=== PATIENT | female | born 1950 | race Caucasian/White ===

== ENCOUNTER 2024-02-05 10:18 | Inpatient (IN) ==
[2024-02-05 12:15] LABS: Basophils # (auto) 0.08 K/uL (0.00-0.20); Basophils % (auto) 0.6 %; Eosinophils # (auto) 0.08 K/uL (0.00-0.50); Eosinophils % (auto) 0.6 %; Hematocrit (blood only) 41.7 % (37.0-47.0); Hemoglobin 14.2 g/dl (12.0-16.0); Immature Granulocytes % (auto) 0.7 %; Lymphocytes # (auto) 3.04 K/uL (1.20-3.40); Lymphocytes % (auto) 21.4 %; Mean Corpuscular Hgb Conc 34.1 g/dL (32.0-36.0); Mean Platelet Volume 9.4 fL (9.4-12.4); Monocytes # (auto) 0.68 K/uL (0.11-0.59); Monocytes % (auto) 4.8 %; Neutrophils # (auto) 10.22 K/uL (1.40-6.50); Neutrophils % (auto) 71.9 %; Platelet Count 263 K/uL (130-400); RDW Coefficient of Variation 13.2 % (11.5-14.5); RDW Standard Deviation 41.5 fL (36.4-46.3); Red Blood Count 4.74 M/uL (4.20-5.40)
[2024-02-05 12:20] LABS: iSTAT Creatinine 0.9 mg/dl (0.6-1.3); iSTAT Hemoglobin 14.3 g/dl (12.0-16.0); iSTAT Ionized Calcium 1.2 mmol/l (1.12-1.32); iSTAT Potassium 3.7 mmol/L (3.3-5.0)
[2024-02-05 12:32] LABS: Anion Gap 12 (3-11); BUN Creatinine Ratio 36.2 (10-20); Blood Urea Nitrogen 34 mg/dl (6-23); Carbon Dioxide 24 mmol/L (21-32); Chloride 103 mmol/L (98-107); Creatinine Clr Calc Pharmacy 49.9 ml/min; Glucose 67 mg/dl (70-99(Fasting)); Potassium 3.7 mmol/L (3.5-5.1); Sodium 139 mmol/L (136-145)
[2024-02-05] MEDS: LORazepam 2 MG/1 ML VIAL IV STA (13:56)
[2024-02-05] MEDS: GADOBUTROL 65ML VIAL IV ONE (14:24)
--- NOTE | 2024-02-05 14:41 | Emergency Department Note ---
Impression & Plan Third nerve palsy ED Provider Note NAME: LAURA FLORES AGE: 73 SEX: F : 1950 ARRIVES VIA: Walk-In INFORMANT: Patient, ED PROVIDER(S): Jonathan Smith MD CHIEF COMPLAINT: Right eye abnormality HPI: This is a 73-year-old female presents for eye abnormality. Patient states over the past 5 days she has had blurred vision. She notes that her right eyelid is drooping and she is unable to open this. In addition she notes that her right eyeball itself does not move significantly well. It is stuck going outwards and down. She notes is never happened before. She does have double vision as result of this. Otherwise she has no recent fever, chills, nausea or vomiting. She does have COVID-19 history, on 01/17. She has no symptoms from this. Otherwise, lower extremity upper extremity motor function or sensory deficits. No other facial issue that she is able to elucidate. ROS: See above HPI for pertinent positives & negatives. A total of 10 systems reviewed and were otherwise negative. PAST MEDICAL HISTORY: See Below PAST SURGICAL HISTORY: See Below FAMILY HISTORY: See Below SOCIAL HISTORY: See Below HOME MEDICATIONS: See Below ALLERGIES: See Below VITALS: See Below PHYSICAL EXAMINATION: General: resting comfortably in no acute distress Head: Normocephalic and atraumatic Eyes: Normal inspection, extraocular muscles intact Ear, nose, throat: Normal external exam Neck: Normal range of motion Respiratory: lungs clear to auscultation bilaterally Cardiovascular: Regular rate/rhythm, no murmur GI: soft, nontender, no guarding or rebound Extremities: nontender, moves all extremities Neuro: The patient awake and alert, appropriately conversive, no focal deficits, symmetric faces, 3rd nerve palsy, other cranial nerves intact Skin: Warm, dry, and intact MEDICAL DECISION MAKING: This is a 73-year-old female presenting for eye abnormality. Patient has been obvious 3rd nerve palsy at this time her right eye is due to the laterally and down. Pupil itself is spared, is reactive to light bilaterally. -Discussed care with Dr. Mattson. Discussed the clinical syndrome at this time. He states recommend MRI of the head with and without contrast. Did ask about CT imaging prior. He recommends MRI at this time without CTs. -Slight leukocytosis is noted at 14.20. Otherwise electrolytes generally within normal limits. Initially low glucose, given food/drink with improvement to the 70s. -MRI reveals no acute intracranial process. She still has significant 3rd nerve palsy. -At this time there is no clear cause, including stroke. Will admit for further workup and etiology Differential diagnosis: 3rd nerve palsy, stroke, infection, MS Diagnostics interpreted by me: ECG: None Cardiac Monitoring: An order was placed for continuous cardiac monitoring. The monitor shows a rate of 76 with sinus rhythm. Past Med/Surg History Problem List (Updated 02/05/24 @ 16:45 by Jonathan Smith MD) Third nerve palsy (Acute) Closed fracture of left distal radius Encounter for pre-operative examination Gastritis Tubular adenoma Nausea Colon cancer screening RUQ abdominal pain Medical History Anxiety Diabetes mellitus, type 2 Environmental allergies Gastric ulcer hx Heart murmur MILD; dr. medel, [facility] History of colonic polyps History of sciatica Hx of bronchitis Hyperlipidemia Hypertension Unique anesthetic considerations on preoperative anesthesia assessment pt reports high anxiety/gets nervous and has white coat syndrome. White coat syndrome without diagnosis of hypertension Surgical History H/O total hysterectomy History of cataract surgery History of colonoscopy History of esophagogastroduodenoscopy (EGD) History of repair of rotator cuff LEFT History of tonsillectomy History of tooth extraction Nausea and vomiting after administration of anesthetic agent Family History Mother Family history of diabetes mellitus Heart disease Grandmother (Maternal) Family history of diabetes mellitus Aunt Family history of diabetes mellitus Father Heart disease Other No family history of adverse response to anesthesia Social History Smoking Status: Current every day smoker Second Hand Exposure: Yes (hx-none for 2 years from ); Do You Dip or Chew Tobacco: No; Hx Alcohol Use: Yes Hx Substance Use: No Preferred Language: Sinhala Communication Ability: Effective Engagement Mgr Required: No Beliefs That Will Affect Care: Roman Catholic Roman Catholic Beliefs: Confucianist Current Living Situation: Spouse Feels Safe at Home: Yes Assistive Devices: Glasses Allergies Allergies Allergy/AdvReac Type Severity Reaction Status Date / Time cat dander Allergy Unknown Hives Verified 02/05/24 12:46 pioglitazone [From Actos] Allergy Unknown Unknown Unverified 02/05/24 12:46 pollen extracts Allergy Unknown ITCHY Verified 02/05/24 12:46 EYES, SNEEZING, CONGESTION Home Meds Home Medications Medication Instructions Recorded Confirmed atorvastatin 40 mg tablet 40 mg PO QAM 11/22/18 02/05/24 multivitamin 1 tab PO QAM 01/21/21 02/05/24 buspirone 5 mg tablet 5 mg PO BID 11/30/22 02/05/24 metformin 500 mg tablet,extended 1,000 mg PO BID 11/30/22 02/05/24 release 24 hr amlodipine 2.5 mg tablet 2.5 mg PO BID 02/05/24 02/05/24 aspirin 81 mg chewable tablet 81 mg PO QAM 02/05/24 02/05/24 lisinopril 40 mg tablet 40 mg PO QAM 02/05/24 02/05/24 metoprolol succinate 50 mg 50 mg PO QAM 02/05/24 02/05/24 tablet,extended release 24 hr tirzepatide 7.5 mg/0.5 mL 7.5 mg subcut WK 02/05/24 02/05/24 subcutaneous pen injector (Elida) Results & Data (ED) Vital Signs Vital Signs - 24 hr 02/05/24 10:19 02/05/24 10:38 02/05/24 11:21 Temperature 36.5 C 37.1 C Temperature Source Temporal Artery Scan Oral Pulse Rate 93 H Pulse Rate [Apical] 97 H 90 Respiratory Rate 18 18 20 Respiratory Effort / Characteristics Non-Labored Spontaneous Respiratory Depth Normal Respiratory Pattern Regular Blood Pressure 184/109 H Blood Pressure [Right Arm] 198/107 H 182/88 H Blood Pressure Mean 134 Blood Pressure Mean [Right Arm] 137 119 Blood Pressure Position [Right Arm] Semi-fowlers Pulse Oximetry 97 97 95 Oxygen Delivery Method Room Air Room Air Sepsis Recent Fever Within 48 Hours No Sepsis New/Unexplained Change in Mental Status N/A Sepsis Action Taken by Nursing No Action Required 02/05/24 13:00 02/05/24 13:57 02/05/24 14:41 Temperature Temperature Source Pulse Rate Pulse Rate [Apical] 87 85 97 H Respiratory Rate 16 18 16 Respiratory Effort / Characteristics Non-Labored Spontaneous Non-Labored Spontaneous Non-Labored Spontaneous Respiratory Depth Normal Normal Normal Respiratory Pattern Regular Regular Regular Blood Pressure Blood Pressure [Right Arm] 181/94 H 169/91 H 181/94 H Blood Pressure Mean Blood Pressure Mean [Right Arm] 123 117 123 Blood Pressure Position [Right Arm] Semi-fowlers Semi-fowlers Semi-fowlers Pulse Oximetry 95 94 96 Oxygen Delivery Method Room Air Room Air Room Air Sepsis Recent Fever Within 48 Hours Sepsis New/Unexplained Change in Mental Status Sepsis Action Taken by Nursing 02/05/24 16:22 Temperature Temperature Source Pulse Rate Pulse Rate [Apical] 76 Respiratory Rate 16 Respiratory Effort / Characteristics Non-Labored Spontaneous Respiratory Depth Normal Respiratory Pattern Regular Blood Pressure Blood Pressure [Right Arm] 163/85 H Blood Pressure Mean Blood Pressure Mean [Right Arm] 111 Blood Pressure Position [Right Arm] Semi-fowlers Pulse Oximetry 98 Oxygen Delivery Method Room Air Sepsis Recent Fever Within 48 Hours Sepsis New/Unexplained Change in Mental Status Sepsis Action Taken by Nursing Laboratory Data 02/05/24 12:00 02/05/24 12:00 Lab Results 02/05/24 02/05/24 02/05/24 Range/Units 12:00 12:05 13:02 WBC 14.20 H (4.8-10.8) K/ul RBC 4.74 (4.20-5.40) M/uL Hgb 14.2 (12.0-16.0) g/dl POC Hgb 14.3 (12.0-16.0) g/dl Hct 41.7 (37.0-47.0) % POC Hct 42 (37-47) % MCV 88.0 (80.0-100.0) fL MCH 30.0 (25.0-34.0) pg MCHC 34.1 (32.0-36.0) g/dL RDW Std Deviation 41.5 (36.4-46.3) fL RDW Coeff of Karla 13.2 (11.5-14.5) % Plt Count 263 (130-400) K/uL MPV 9.4 (9.4-12.4) fL Immature Gran % (Auto) 0.7 % Neut % (Auto) 71.9 % Lymph % (Auto) 21.4 % [place] % (Auto) 4.8 % Eos % (Auto) 0.6 % Baso % (Auto) 0.6 % Neut # (Auto) 10.22 H (1.40-6.50) K/uL Lymph # (Auto) 3.04 (1.20-3.40) K/uL [place] # (Auto) 0.68 H (0.11-0.59) K/uL Eos # (Auto) 0.08 (0.00-0.50) K/uL Baso # (Auto) 0.08 (0.00-0.20) K/uL Immature Gran # (Auto) 0.10 (0.01-0.20) K/uL POC Sodium 140 (135-144) mmol/L Sodium 139 (136-145) mmol/L POC Potassium 3.7 (3.3-5.0) mmol/L Potassium 3.7 (3.5-5.1) mmol/L POC Chloride 105 (101-112) mmol/L Chloride 103 (98-107) mmol/L Carbon Dioxide 24 (21-32) mmol/L POC Total CO2 22 L (24-31) mmol/L Anion Gap 12 H (3-11) POC Anion Gap 18.0 (16-25) mmol/L POC BUN 34 H (7-18) mg/dl BUN 34 H (6-23) mg/dl Creatinine 0.94 (0.6-1.2) mg/dl POC Creatinine 0.9 (0.6-1.3) mg/dl Est Cr Clr Drug Dosing 49.9 ml/min eGFR 64.87 BUN/Creatinine Ratio 36.2 H (10-20) Glucose 67 L (70-99(Fasting)) mg/dl POC Glucose 79 (70-99) mg/dl POC Glucose (other) 66 L* (70-99) mg/dl Calcium 10.0 (8.6-10.3) mg/dl POC Ioniz Calcium Lexa 1.20 (1.12-1.32) mmol/l Administered Medications Discontinued Medications Gadobutrol (Gadobutrol 65ml Vial) 7.5 ml IV ONCE ONE Stop: 02/05/24 14:24 Last Admin: 02/05/24 14:24 Dose: 7.5 ml Documented By: ENOC Lorazepam (Lorazepam 2 Mg/1 Ml Vial) 0.5 mg IV NOW STA Stop: 02/05/24 13:50 Last Admin: 02/05/24 13:56 Dose: 0.5 mg Documented By: CHARITY Imaging Data Radiologist's Impression: Brain MRI 02/05/24 12:09 MRI OF THE BRAIN WITHOUT AND WITH IV CONTRAST CLINICAL HISTORY: Right 3rd nerve palsy. Acute onset right eyelid drooping. COMPARISON STUDY: No previous studies for comparison. TECHNIQUE: Utilizing a 1.5 Viry magnet and dedicated coil, multiplanar, multiecho imaging of the brain was performed pre and postcontrast administration. IV administration of 7.5 mL of Gadavist contrast was uneventful. FINDINGS: There are no foci of restricted diffusion to suggest acute infarct. No acute intracranial hemorrhage, midline shift or mass effect is present. Ventricular system is unremarkable. Basal cisterns are patent. Flow-voids for the major intracranial vessels are present. There is mild atrophy. Mild white matter T2 hyperintense foci suggest small vessel disease. Calvarial signal is normal. No orbital abnormality is identified on nondedicated exam. There is no mastoid fluid. There is no significant sinus opacification. IMPRESSION: 1. No acute intracranial findings. 2. No intracranial mass or pathologic enhancement. ACT 112: Negative or not required by law. Electronically signed by: Steven Dwyer M.D. 02/05/2024 2:48 PM Discharge Plan Visit Data Chief Complaint: Eye Problems Stated Complaint: RT EYE/SWOLLEN SHUT/PAINFUL ED Provider: Jonathan Smith Discharge Problem: Third nerve palsy Forms Stand Alone Forms: [facility] Prescriptions Prescriptions: No Action atorvastatin 40 mg Tablet 40 mg PO QAM buspirone 5 mg Tablet 5 mg PO BID metformin 500 mg Tablet Extended Release 24 Hr 1,000 mg PO BID multivitamin Tablet 1 tab PO QAM metoprolol succinate 50 mg tablet extended release 24 hr 50 mg PO QAM amlodipine 2.5 mg tablet 2.5 mg PO BID aspirin 81 mg Tablet,Chewable 81 mg PO QAM lisinopril 40 mg tablet 40 mg PO QAM Mounjaro 7.5 mg/0.5 mL pen injector 7.5 mg subcut WK Rx Instructions: Monday Referrals Referrals: Arti Gutierrez MD [Primary Care Provider] -
--- NOTE | 2024-02-05 14:49 | Magnetic Resonance Report ---
MRI OF THE BRAIN WITHOUT AND WITH IV CONTRAST CLINICAL HISTORY: Right 3rd nerve palsy. Acute onset right eyelid drooping. COMPARISON STUDY: No previous studies for comparison. TECHNIQUE: Utilizing a 1.5 Viry magnet and dedicated coil, multiplanar, multiecho imaging of the br ain was performed pre and postcontrast administration. IV administration of 7.5 mL of Gadavist contr ast was uneventful. FINDINGS: There are no foci of restricted diffusion to suggest acute infarct. No acute intracranial h emorrhage, midline shift or mass effect is present. Ventricular system is unremarkable. Basal cistern s are patent. Flow-voids for the major intracranial vessels are present. There is mild atrophy. Mild white matter T2 hyperintense foci suggest small vessel disease. Calvarial signal is normal. No orbita l abnormality is identified on nondedicated exam. There is no mastoid fluid. There is no significant sinus opacification. IMPRESSION: 1. No acute intracranial findings. 2. No intracranial mass or pathologic enhancement. ACT 112: Negative or not required by law. Electronically signed by: Steven Dwyer M.D. 02/05/2024 2:48 PM
--- NOTE | 2024-02-05 17:52 | History & Physical Report ---
<Statement entered by Lane Martinez DO - 02/05/24 19:41> I have seen and examined the patient and have discussed the case with the provider above. I have reviewed the advanced practitioner's documentation, and I agree with, and take responsibility for that plan of care. Patient seen and examined well still in ED. Patient reports she does have this palsy since last . Temporally it is very closely related to her recent COVID infection which she describes as severe. She also describes cluster migraines that occurred right about the time she has noticed a 3rd nerve palsy. Physical exam: Extraocular motion is consistent with 3rd nerve palsy of the right eye Reviewed MRI report Check MRA of the brain Check ESR/CRP consider possible giant cell arteritis or vasculitis Suspect 3rd nerve palsy may be due to recent infection with COVID and/or possible migrainous 3rd nerve palsy Neurology consultation Plan of care as outlined below Date of Service February 05, 2024 Assessment & Plan (1) Third nerve palsy: (2) Diabetes mellitus, type 2: (3) Anxiety: (4) Hypertension: (5) Hyperlipidemia: Plan Assessment and plan: Right eye ptosis Suspected 3rd nerve palsy: Head MRI negative for any acute findings, recent viral illness likely the cause Check head MRA, eyepatch, consult neuro, await recommendations Hx DM2: Last A1c 5.9, check sugars twice daily, hold metformin Patient was hypoglycemic on arrival Hx HTN/HLD: Continue metoprolol/lisinopril/statin/aspirin/amlodipine Hx depression: Continue buspirone A total of 60 minutes was spent on chart review/reviewing diagnostic data/facilitating plan of care/discussion with consultants Full code DVT prophylaxis: Lovenox History of Present Illness Chief Complaint: Right eye proptosis/diplopia Primary Care Provider: Arti Gutierrez MD The patient is a 73-year-old female with a past medical history of HTN, HLD, depression, diabetes who presents to the ED on 02/05/2024 with complaints of right eye proptosis for the past week. Patient reports recently being diagnosed with COVID and having a lot of mucus production and respiratory symptoms. She denies shortness of breath or chest pain. She reports about a week ago developing right eye ptosis about a week ago and thought she had an eye infection. She reports diplopia when opening both of her eyes but when her right eye is closed reports that this resolved. Denies anything like this in the past. Denies any numbness/tingling. Denies any weakness. On exam, patient is able to identify how many fingers are being held up and her peripheral vision is intact but the patient is unable to follow my fingers with her right eye. Denies any blurry vision. She is neurologically grossly intact. No other neurodeficits noted on exam On arrival to the ER, labs are remarkable for WBC 14, anion gap 12, BUN 34, glucose 66, patient reports she only ate breakfast this morning Brain MRI was negative for anything acute The patient will be admitted for further workup of suspected 3rd nerve palsy Allergies Allergy/AdvReac Type Severity Reaction Status Date / Time cat dander Allergy Unknown Hives Verified 02/05/24 12:46 pioglitazone [From Actos] Allergy Unknown Unknown Unverified 02/05/24 12:46 pollen extracts Allergy Unknown ITCHY Verified 02/05/24 12:46 EYES, SNEEZING, CONGESTION Home Medications Medication Instructions Recorded Confirmed Type atorvastatin 40 mg tablet 40 mg PO QAM 11/22/18 02/05/24 History multivitamin 1 tab PO QAM 01/21/21 02/05/24 History buspirone 5 mg tablet 5 mg PO BID 11/30/22 02/05/24 History metformin 500 mg tablet,extended 1,000 mg PO BID 11/30/22 02/05/24 History release 24 hr amlodipine 2.5 mg tablet 2.5 mg PO BID 02/05/24 02/05/24 History aspirin 81 mg chewable tablet 81 mg PO QAM 02/05/24 02/05/24 History lisinopril 40 mg tablet 40 mg PO QAM 02/05/24 02/05/24 History metoprolol succinate 50 mg 50 mg PO QAM 02/05/24 02/05/24 History tablet,extended release 24 hr tirzepatide 7.5 mg/0.5 mL 7.5 mg subcut WK 02/05/24 02/05/24 History subcutaneous pen injector (Mounjaro) Past Med/Surg History Problem List (Updated 02/05/24 @ 16:45 by Jonathan Smith MD) Third nerve palsy (Acute) Closed fracture of left distal radius Encounter for pre-operative examination Gastritis Tubular adenoma Nausea Colon cancer screening RUQ abdominal pain Medical History Anxiety Diabetes mellitus, type 2 Environmental allergies Gastric ulcer hx Heart murmur MILD; dr. medel [place] History of colonic polyps History of sciatica Hx of bronchitis Hyperlipidemia Hypertension Unique anesthetic considerations on preoperative anesthesia assessment pt reports high anxiety/gets nervous and has white coat syndrome. White coat syndrome without diagnosis of hypertension Surgical History H/O total hysterectomy History of cataract surgery History of colonoscopy History of esophagogastroduodenoscopy (EGD) History of repair of rotator cuff LEFT History of tonsillectomy History of tooth extraction Nausea and vomiting after administration of anesthetic agent Family History Mother Family history of diabetes mellitus Heart disease Grandmother (Maternal) Family history of diabetes mellitus Aunt Family history of diabetes mellitus Father Heart disease Other No family history of adverse response to anesthesia Social History Smoking Status: Current every day smoker Second Hand Exposure: Yes (hx-none for 2 years from ); Do You Dip or Chew Tobacco: No; Hx Alcohol Use: Yes Hx Substance Use: No Preferred Language: Romansh Communication Ability: Effective Enrollment Management Manager Required: No Beliefs That Will Affect Care: Scientology Scientology Beliefs: Synagogue Current Living Situation: Spouse Feels Safe at Home: Yes Assistive Devices: Glasses Review of Systems Review of Systems: All systems reviewed & are unremarkable except as noted in HPI & below Physical Exam Constitutional: WD/WN, vitals as above Eyes: PERRL, conjunctivae normal, anicteric sclerae (Right eye ptosis, 3rd nerve palsy) ENMT: external ear and nose normal, oropharynx normal Neck: trachea midline, no thyromegaly Respiratory: normal respiratory effort, lungs clear to auscultation Cardiovascular: RRR, no murmur, no edema Gastrointestinal (Abdomen): normal bowel sounds, soft, nontender, no hepatosplenomegaly Musculoskeletal: no cyanosis or clubbing, extremities motor strength 5/5 Skin: no rashes, warm and dry Neurologic: PERRL, EOMI, accommodation nl, no face palsy, no dysarthria Psychiatric: A+Ox3, euthymic affect Lymphatic: no cervical or axillary lymphadenopathy Results & Data Results & Data Vital Signs (Past 12 Hours) Vital Signs Temp Pulse Pulse Resp BP BP Pulse Ox 02/05/24 16:22 76 16 163/85 H 98 02/05/24 14:41 97 H 16 181/94 H 96 02/05/24 13:57 85 18 169/91 H 94 02/05/24 13:00 87 16 181/94 H 95 02/05/24 11:21 37.1 C 90 20 182/88 H 95 02/05/24 10:38 97 H 18 198/107 H 97 02/05/24 10:19 36.5 C 93 H 18 184/109 H 97 O2 Del Method 02/05/24 16:22 Room Air 02/05/24 14:41 Room Air 02/05/24 13:57 Room Air 02/05/24 13:00 Room Air 02/05/24 11:21 Room Air 02/05/24 10:38 Room Air 02/05/24 10:19 Diagnostic Findings Laboratory Results WBC 14.20 K/ul (4.8-10.8) H 02/05/24 12:00 RBC 4.74 M/uL (4.20-5.40) 02/05/24 12:00 Hgb 14.2 g/dl (12.0-16.0) 02/05/24 12:00 POC Hgb 14.3 g/dl (12.0-16.0) 02/05/24 12:05 Hct 41.7 % (37.0-47.0) 02/05/24 12:00 POC Hct 42 % (37-47) 02/05/24 12:05 MCV 88.0 fL (80.0-100.0) 02/05/24 12:00 MCH 30.0 pg (25.0-34.0) 02/05/24 12:00 MCHC 34.1 g/dL (32.0-36.0) 02/05/24 12:00 RDW Std Deviation 41.5 fL (36.4-46.3) 02/05/24 12:00 RDW Coeff of Karla 13.2 % (11.5-14.5) 02/05/24 12:00 Plt Count 263 K/uL (130-400) 02/05/24 12:00 MPV 9.4 fL (9.4-12.4) 02/05/24 12:00 Immature Gran % (Auto) 0.7 % 02/05/24 12:00 Neut % (Auto) 71.9 % 02/05/24 12:00 Lymph % (Auto) 21.4 % 02/05/24 12:00 [place] % (Auto) 4.8 % 02/05/24 12:00 Eos % (Auto) 0.6 % 02/05/24 12:00 Baso % (Auto) 0.6 % 02/05/24 12:00 Neut # (Auto) 10.22 K/uL (1.40-6.50) H 02/05/24 12:00 Lymph # (Auto) 3.04 K/uL (1.20-3.40) 02/05/24 12:00 [place] # (Auto) 0.68 K/uL (0.11-0.59) H 02/05/24 12:00 Eos # (Auto) 0.08 K/uL (0.00-0.50) 02/05/24 12:00 Baso # (Auto) 0.08 K/uL (0.00-0.20) 02/05/24 12:00 Immature Gran # (Auto) 0.10 K/uL (0.01-0.20) 02/05/24 12:00 POC Sodium 140 mmol/L (135-144) 02/05/24 12:05 Sodium 139 mmol/L (136-145) 02/05/24 12:00 POC Potassium 3.7 mmol/L (3.3-5.0) 02/05/24 12:05 Potassium 3.7 mmol/L (3.5-5.1) 02/05/24 12:00 POC Chloride 105 mmol/L (101-112) 02/05/24 12:05 Chloride 103 mmol/L (98-107) 02/05/24 12:00 Carbon Dioxide 24 mmol/L (21-32) 02/05/24 12:00 POC Total CO2 22 mmol/L (24-31) L 02/05/24 12:05 Anion Gap 12 (3-11) H 02/05/24 12:00 POC Anion Gap 18.0 mmol/L (16-25) 02/05/24 12:05 POC BUN 34 mg/dl (7-18) H 02/05/24 12:05 BUN 34 mg/dl (6-23) H 02/05/24 12:00 Creatinine 0.94 mg/dl (0.6-1.2) 02/05/24 12:00 POC Creatinine 0.9 mg/dl (0.6-1.3) 02/05/24 12:05 Est Cr Clr Drug Dosing 49.9 ml/min 02/05/24 12:00 eGFR 64.87 02/05/24 12:00 BUN/Creatinine Ratio 36.2 (10-20) H 02/05/24 12:00 Glucose 67 mg/dl (70-99(Fasting)) L 02/05/24 12:00 POC Glucose 79 mg/dl (70-99) 02/05/24 13:02 POC Glucose (other) 66 mg/dl (70-99) L* 02/05/24 12:05 Calcium 10.0 mg/dl (8.6-10.3) 02/05/24 12:00 POC Ioniz Calcium Lexa 1.20 mmol/l (1.12-1.32) 02/05/24 12:05 Impressions Brain MRI 02/05/24 12:09 MRI OF THE BRAIN WITHOUT AND WITH IV CONTRAST CLINICAL HISTORY: Right 3rd nerve palsy. Acute onset right eyelid drooping. COMPARISON STUDY: No previous studies for comparison. TECHNIQUE: Utilizing a 1.5 Viry magnet and dedicated coil, multiplanar, multiecho imaging of the brain was performed pre and postcontrast admini stration. IV administration of 7.5 mL of Gadavist contrast was uneventful. FINDINGS: There are no foci of restricted diffusion to suggest acute infarct. No acute intracranial hemorrhage, midline shift or mass effect is present. Ventricular system is unremarkable. Basal cisterns are patent. Flow-voids for the major intracranial vessels are present. There is mild atrophy. Mild white matter T2 hyperintense foci suggest small vessel disease. Calvarial signal is normal. No orbital abnormality is identified on nondedicated exam. There is no mastoid fluid. There is no significant sinus opacification. IMPRESSION: 1. No acute intracranial findings. 2. No intracranial mass or pathologic enhancement. ACT 112: Negative or not required by law. Electronically signed by: Steven Dwyer M.D. 02/05/2024 2:48 PM
[2024-02-05 18:55] LABS: C Reactive Protein < 0.50 mg/dl (0-0.5)
--- OUTSIDE RECORDS SUMMARY | 2024-02-05 19:45 | External Medical Summary | Summary of Care ---
Author Name Unknown Organization [facility] Address [address] [place] [address] Phone [phone] Care Team Providers Care Scourer Name Role Phone Arti Gutierrez MD Primary Care Provider [phone] Reason for Visit * Reason Comments Dosage Adjustment In Person (Anticoag Cl inic) Diabetes Management Encounter Details Date Type Department Care Team (Late st Contact Info) Description 01/05/2024 1:40 PM EDT Office Visit Pharmacy, [facility] [place] [address] [facility] [place] [address] Pharmacist1, [facility] [address] [place] [address] Type 2 diabetes mellitus with hemoglobin A1c goal of less than 7.0% ([facility])* Allergies Active Allergy Reactions Criticality Noted Date Comments Pioglitazone Hydrochloride 9 Gi upset Semaglutide Diarrhea,Nausea/vomiting 11/04/2022 documented as of this encounter (statuses as of 01/05/2024) Medications Medication Sig Dispensed Refills Start Date End Date Status ASPIRIN 81 MG PO CHEWIndications:DM type 2, not at goal (HCC),HTN, goal below 140/90 One pill by mouth once a day with food 100 5 12/04/2008 Active OCUVITE-LUTEIN PO CAPS 1 tab by mouth daily Active M-VIT PO TABS 1 tab by mouth daily Active Fluticasone Propionate 50 MCG/ACT Nasal Suspension (Flonase) ADMINISTER 1 SPRAY INTO NOSTRIL DAILY. 48 mL 07/07/2020 Active Fish Oil 1200 MG Oral Capsule Take 1,200 mg by mouth in the morning. Active B Complex Vitamins Oral Capsule Take 1 Capsule by mouth in the morning. Active Fiber Select Gummies Oral Tablet Chewable Take 1 Tablet by mouth in the morning. 5 g =2 gummies/d. 1 Tablet 2022 Active ReliOn All-In-One DeviceIndications:U ncontrolled type 2 diabetes mellitus with hyperglycemia (HCC) Use as directed. 1 Each 09/27/2022 Active Biotin 5000 MCG Oral Capsule Take 1,000 Capsules by mouth once. Active amLODIPine Besylate 2.5 MG Oral Tablet (Norvasc)Indication s:HTN, goal below 140/80,Microalbumin uria due to type 2 diabetes mellitus (HCC),Nonrheumatic mitral valve regurgitation,Nonrh eumatic aortic valve stenosis Take 1 Tablet by mouth in the morning and 1 Tablet before bedtime. 180 Tablet 3 05/09/2023 Active metFORMIN HCl ER 500 MG Oral Tablet Extended Release 24 Hour (Glucophage XR)Indications:Type 2 diabetes mellitus with hemoglobin A1c goal of less than 7.0% (HCC) Take 2 Tablets by mouth 2 times a day with morning and evening meals. 360 Tablet 3 07/05/2023 Active Lisinopril 40 MG Oral TabletIndications:H TN, goal below 140/80,Type 2 diabetes mellitus with hemoglobin A1c goal of less than 7.0% (HCC),Microalbuminu lizet due to type 2 diabetes mellitus (HCC),Dehydration TAKE 1 TABLET BY MOUTH EVERY DAY IN THE MORNING 90 Tablet 1 08/28/2023 Active busPIRone HCl 5 MG Oral Tablet (Buspar)Indications :Situational stress TAKE 1 TABLET BY MOUTH IN THE MORNING AND BEFORE BEDTIME 180 Tablet 1 10/11/2023 Active glipiZIDE ER 5 MG Oral Tablet Extended Release 24 Hour (Glucotrol XL)Indications:Unco ntrolled type 2 diabetes mellitus with hyperglycemia (HCC) TAKE 1 TABLET BY MOUTH IN THE MORNING AND IN THE EVENING 180 Tablet 2 10/11/2023 Active Metoprolol Succinate ER 50 MG Oral Tablet Extended Release 24 Hour (toPROL XL)Indications:HTN, goal below 140/80,Non-rheumati c aortic sclerosis,Type 2 diabetes mellitus with hemoglobin A1c goal of less than 7.0% (HCC),Nonrheumatic mitral valve regurgitation,Nonrh eumatic aortic valve stenosis TAKE 1 TABLET BY MOUTH EVERY DAY IN THE MORNING 90 Tablet 1 11/13/2023 Active Atorvastatin Calcium 40 MG Oral Tablet (Lipitor)Indication s:Dyslipidemia, goal LDL below 100 TAKE 1 TABLET BY MOUTH EVERY DAY IN THE MORNING 90 Tablet 1 11/23/2023 Active Cetirizine HCl 10 MG Oral Tablet (ZyrTEC Allergy)Indications :Seasonal allergic rhinitis due to pollen Take 1 Tablet by mouth in the morning. 01/05/2024 Active Mounjaro 10 MG/0.5ML Subcutaneous Solution Auto-injector (Tirzepatide) Inject 10 mg under the skin once a week. 2 mL 11 01/05/2024 5 Active Mounjaro 7.5 MG/0.5ML Subcutaneous Solution Pen-injector (Tirzepatide)Indica tions:Type 2 diabetes mellitus with hemoglobin A1c goal of less than 7.0% ([facility]) Inject 7.5 mg under the skin once a week. 2 mL 11 09/19/2023 4 Discontinue d(Medicatio n/Dose Changed) documented as of this encounter (statuses as of 01/05/2024) Active Problems Problem Noted Date Diagnosed Date Nonrheumatic mitral valve regurgitation 01/05/20 Advance directive on file 01/05/2024 Overview: 12/27--Full code, DNR if terminal, wishes to donate organs and body for research. White coat syndrome with diagnosis of hypertensi on 01/05/2024 Elevated BUN 01/05/2024 CKD (chronic kidney disease) stage 2, GFR 60-89 ml/min 01/16/2023 Overview: Per CKD protocol Microalbuminuria due to type 2 diabetes mellitus 09/27/2022 Seasonal allergic rhinitis due to pollen 023 Non-rheumatic aortic sclerosis 2022 Situational stress 2022 HTN, goal below 130/80 05/11/2015 Overview: Per HTN Protocol #27. DYSLIPIDEMIA, GOAL LDL BELOW 100 02/12/2009 Overview: Per Lipid Taxonomy. Type 2 diabetes mellitus wit h hemoglobin A1c goal of less than 7.0% 12/18/2008 Overview: Modified per Diabetes protocol #14. ICD-10 update of inactive term documented as of this encounter (statuses as of 01/05/2024) Resolved Problems Problem Noted Date Diagnosed Date Resolved Date Age-related incipient cataract of both eyes 2022 07/04/2023 HTN, GOAL BELOW 140/80 10/24/201106/10 Overview: Per HTN Protocol #27. Asthma with severity to be determined 08/27/2009 03/28/2011 Overview: Per Asthma Taxonomy ICD-10 update of inactive term Asthma with severity to be determined 08/27/2009 03/28/2011 Overview: Per Asthma Taxonomy ICD-10 update of inactive term Asthma with severity to be determined 08/27/2009 12/13/2011 Overview: Per Asthma Taxonomy ICD-10 update of inactive term Severe obesity with body mas s index (BMI) of 35.0 to 39.9 with serious comorbidity 08/17/2009 Overview: Per Obesity Protocol, #19 ICD-10 update of inactive diagnosis HTN, goal below 130/80 04/01/200903/28 Overview: Per HTN Taxonomy. HTN, goal below 130/80 04/01/200903/28 Overview: Per HTN Taxonomy. HTN, GOAL BELOW 130/80 04/01/200910/26 Overview: Per HTN Taxonomy. Dyslipidemia, goal LDL below 100 02/12/2009 03/28/2011 Overview: Per Lipid Taxonomy. Type 2 diabetes mellitus wit h hemoglobin A1c goal of less than 7.0% 12/18/2008 03/28/2011 Overview: Modified per Diabetes protocol #14. ICD-10 update of inactive term Type 2 diabetes mellitus wit h hemoglobin A1c goal of less than 7.0% 12/18/2008 03/28/2011 Overview: Modified per Diabetes protocol #14. ICD-10 update of inactive term Status asthmaticus 04/07/2008 0 HTN, goal below 140/90 04/07/200804/01 Overview: Per HTN Taxonomy. Dyslipidemia, goal LDL below 160 04/07/2008 02/12/2009 Overview: Per Lipid Taxonomy. Status asthmaticus 0 Status asthmaticus 0 Dyslipidemia, goal LDL below 160 02/12/2009 Overview: Per Lipid Taxonomy. HTN, goal below 140/90 04/01 Overview: Per HTN Taxonomy. DM type 2, not at goal 12/18 Overview: Modified per Diabetes protocol #14. DM type 2, not at goal 12/18 Overview: Modified per Diabetes protocol #14. DM type 2, not at goal 12/18 Overview: Modified per Diabetes protocol #14. HTN, goal below 140/90 04/01 Overview: Per HTN Taxonomy. Intermittent asthma, well controlled 07/04/2013 documented as of this encounter (statuses as of 01/05/2024) Immunizations Name Administration Dates Next Due COVID-19 mRNA, LNP-s, No Pre serve, 2-Dose Series (Moderna) 12/28/2022,05/13/2020,04/15/2020 COVID-19, mRNA, LNP-s, PF, B ooster, 100mcg/0.5mg (Moderna) 06/10/2021,01/04/2021,06/04/2020 Covid-19, Mrna, Lnp-s, Pf, B ivalent, 50 Mcg, IM, 12 yrs and above (Moderna) 12/15/2021 Hepatitis B, 20+ yrs 07/04/2023,02/20/2023,01/18 Pneumococcal Conjugate Vacc, 13 Valent (Prevnar) 01/19/2016 Pneumococcal Polysaccharide PPV23 (Pneumovax) 12/01/2021,11/30/2017,03/20/2001 RSV Vac., Recomb, Adjuvant, PF,0.5 Ml (Arexvy) 01/08/2023 Season Influenza, Quad, PF, Adjuvanted, 65+ Yrs, IM (FLUAD) 11/15/2021,11/23/2020,11/28/2019 Seasonal Influenza Vac., MDV , IM, 0.5 mL (Fluzone) 11/17/2014,12/26/2013,11/19/2012,04/2011,11/26/2010,11/23/2009,12/05/19 09,12/02/2007 Seasonal Influenza Virus Vac cine, Unspecified Formulation 11/28/2019,11/05/2018 Seasonal Influenza, PF, 6 M & above, IM , (FluLaval or Fluzone) 11/30/2017,12/16/2016 Seasonal Influenza, Quadriva lent Hd (Fluzone Hd) 12/28/2022 Seasonal Influenza, Quadriva lent, No Preserve, IM 12/09/2015 12/08/2016 Seasonal Influenza, Trivalen t, Adjuvanted, 65+ YRS, PF, (Fluad) 10/31/2018 TD - Tetanus/Diptheria (ADULT) 04/13/2018 TDAP, Age 7 and older, IM (Adacel) 04/13/2018, Varicella Zoster Vaccine (Adult) 10/02/2012 Zoster Vaccine Recombinant (Shingrix) 07/15/2019 ,03/15/2019 documented as of this encounter Social History Tobacco Use Types Packs/Day Years Used Date Smoking Tobacco: Never Smokeless Tobacco: Never Alcohol Use Standard Drinks/Week Comments Yes 0 (1 standard drink = 0.6 oz pur e alcohol) occassionally PHQ-2 Answer Date Recorded PHQ Adult Total Score 0 2022 Hunger Vital Sign Answer Date Recorded Within the past 12 months, y ou worried that your food would run out before you got the money to buy more. Never true 09/24/19 23 Within the past 12 months, t he food you bought just didn't last and you didn't have money to get more. Never true 2022 Utilities Answer Date Recorded Do you have trouble paying y our heating, water, or electric bill? (Adult - for ages 18 years and over) Not on file 08/22/2023 Is your family able to pay t he heat, water, or electric bill? (Household - for ages 0-17 years) Not on file 08/22/2023 Does your family have access to good internet? (Household - for ages 0-17 years) Not on file 08/22/2023 Social Connections Answer Date Recorded How often do you feel lonely or isolated from those around you? (Adult - for ages 18 years and over) Not on file 08/22/2023 Sex and Gender Information Value Date Recorded Sex Assigned at Female 08/09/2018 11:51 AM EDT Gender Identity Female 08/09/2018 11:51 AM EDT Sexual Orientation Straight 08/09/2018 11 :51 AM EDT Job Start Date Occupation Industry Not on file Not on file Not on file documented as of this encounter Progress Notes * Isabel De Leon, [facility] - 01/05/2024 2:00 PM EDT Medication Therapy Disease Management Clinic - Diabetes Management Progress Note Yessenia Justice, identified by name and date of , is a 73 year old female being seen for diabetes management/education. Patient presents for return diabetic visit. DIABETES: Current diabetic medications: Metformin ER 500mg 2 tablet with breakfast and supper Glipizide XL 5mg twice daily Mounjaro 7.5mg weekly Medication Injection Site: Abdomen Lifestyle: Diet: improved Glucose Review/SMBG: Readings obtained from patient documented BG logbook Pre am Post am Post pm HS 119 121 83 117 103 131 125 102 118 136 112 124 144 133 111 111 75 113 123 95 116 116 76 124 120 95 112 133 118 134 143 133 142 91 116 82 75 108 102 83 105 103 101 80 120 112 105 74 126 100 122 75 139 96 106 126 102 123 125 96 121 134 56 117 94 90 107 132 128 133 105 99 127 129 119 132 143 131 133 92 93 122 103 99 96 111 72 116 83 90 122 105 99 109 102 114 95 89 124 126 106 115 139 126 112 123 73 113 119 96 116 90 123 129 117 118 134 82 124 99 80 123 110 99 115 124 90 125 132 123 113 140 88 114 129 112 142 131 124 75 110 88 132 88 97 Pre am Post am Post pm HS Average 116 75 120 98 Hi 134 75 144 133 Lo 80 74 75 56 Range 54 1 69 77 Hypoglycemia: Does your blood sugar go below 70 mg/dL? Yes, Oct lows: 62, 65, 66, 62 Hyperglycemia symptoms present: none Recent Labs Units 01/03/24 0855 10/03/23 0835 07/01/23 0936 HEMOGLOBIN A1C - [facility] % 6.0* 5.9* 6.3* Recent Labs Units 01/03/24 0855 07/01/23 0936 04/11/23 0839 ESTIMATED GLOMERULAR FILTRATION RATE - [facility] mL/min 60 60 63 CREATININE - [facility] mg/dL 1.0 1.0 1.0 HYPERTENSION: Patient on ACEi/ARB: yes BP Readings from Last 3 Encounters: 01/05/24 142/80 07/13/23 179/103 07/04/23 120/73 Blood pressure at goal: yes HYPERLIPIDEMIA: Recent Labs Units 01/03/24 0855 03/31/23 1026 12/28/22 0822 LDL CHOLESTEROL (CALCULATED) - [facility] mg/dL 76 -- 81 LDL CHOLESTEROL (DIRECT MEASURE) - [facility] mg/dL -- 77 -- Does patient have clinical ASCVD? No, is patient LDL less than 70mg/dL? Yes HEALTH MAINTENANCE REVIEW: Health Maintenance Due Topic Date Due Adult Wellness Visit Never done Diabetic Eye Exam 08/09/2023 Depression Screening 09/24/2023 Influenza Vaccine (FLU shot) (1) 11/05/2023 COVID-19 Vaccine ( season) 2023 ASSESSMENT & PLAN: ICD-10-CM 1. Type 2 diabetes mellitus with hemoglobin A1c goal of less than 7.0% (HCC) E11.9 BG Readings - Blood sugars controlled. Patient's A1c was 6% on 01/02 which is controlled for her goal <7%. Congratulated the patient on this. The patient is however, experiencing consistent lows. She was having lows in October and was to discontinue the glipizide but restarted it as she saw her sugars coming up. Counseled on how to correct a low glucose. Medications - Reviewed current regimen, patient is adherent to regimen. Patient does not have any issues with her medications and is tolerating them well. Assessed willingness to increase mounjaro to10 mg patient states that she had severe vomiting and diarrhea when trying to increase the last time. It looked like she was only on 7.5 mg for a month prior to increasing to the 10 mg so I said her body might not have been used to it and the jump may have been too soon. Patient is agreeable to trythe increased dose and will let us know if any side effects or intolerance. She will finish out the7.5 mg supply. Counseled to stop glipizide when she starts the 10 mg and to decrease to 1 tablet ofglipizide in the mean time as she is concerned that her blood sugars will increase if she stops theglipizide now. Diet, Exercise, Lifestyle - No significant lifestyle changes since last visit. Discussed with patient her diet, or which is a good variety and consistent with a diabetes and weight loss approach. Patient is agreeable to SMBG 3 time(s) daily. Patient aware to contact clinic if any hypoglycemia before next visit. MEDICATION CHANGES: yes, see below; [facility] ([facility]) Diabetic Medications: Metformin ER 500mg 2 tablet with breakfast and supper DEC: Glipizide XL 5mg daily INC: Mounjaro 10 mg weekly (finishing out the 7.5 mg supply) HEALTH MAINTENANCE INTERVENTIONS: Labs: Ordered & Scheduled: HgA1c (prior to next appt) Immunizations: Not reviewed Foot Exam: Up to Date Eye Exam: due Annual Wellness Visit: due FOLLOW UP: Return to clinic in 14 weeks 04/08/2024 I spent a total of 30-39 minutes (exact time 34 mins) on the date of service in preparation, delivery, and documentation of the care provided to Yessenia Justice excluding any time spent in the performance of separately billed services. Isabel De Leon RPh Clinical Pharmacist - [facility] Medication Therapy Management Clinic 01/05/2024, 2:00 PM documented in this encounter Plan of Treatment Upcoming Encounters Date Type Department Care Team (Late st Contact Info) Description 02/20/2024 9:15 AM EST Imaging Radiology [address], [address] [place] [address] 04/08/2024 10:30 AM EST Office Visit Pharmacy, [facility] [address] [facility] [place] [address] Pharmacist1, [facility] [address] [facility] [place] [address] 05/09/2024 11:00 AM EST Cardiac Studies [facility] [address] 06/03/2024 8:30 AM EDT Office Visit Cardiology, [facility] [address] [facility] [place] [address] Tye Garcia MD [address] [place] [address] 07/12/2024 10:20 AM EDT Office Visit General Internal Medicine [facility] [address] [facility] [place] [address] Arti Gutierrez MD [address] [facility] [place] [address] Scheduled Orders Name Type Priority Associated Diagnoses Order Schedule HEMOGLOBIN A1C, POINT OF CARE Point of Care Testing - Unsolicited Results Routine Type 2 diabetes mellitus with hemoglobin A1c goal of less than 7.0% ([facility]) Expected: 03/29/2024, Expires: 02/03/2025 Health Maintenance Due Date Last Done Comments Cologuard 1997 Sigmoidoscopy 1997 Adult Wellness Visit 2018 Diabetic Eye Exam 08/09/2023 08/08/2022, , 01/12/2016, Additional history exists Depression Screening 09/24/2023 2022 COVID-19 Vaccine ( season) 2023 12/28/2022, 12/15/2021, 06/10/2021, Additional history exists Influenza Vaccine (FLU shot) (#1) 2023 12/28/2022, 11/15/2021, 11/23/2020, Additional history exists Mammogram 02/17/2024 02/16/2023, 02/03, 01/11/2021, Additional history exists Fecal Occult Blood Test 04/08/2024 04/08/2023 HbA1c 07/03/2024 01/03/2024, 09/05, 07/01/2023, Additional history exists Albumin/Creatinine Ratio 01/02/2025 024, 07/01/2023, 03/31/2023, Additional history exists B-12 01/02/2025 01/03/2024, 09/04, 03/09/2018 GFR 01/02/2025 01/03/2024, 06/05, 04/11/2023, Additional history exists Diabetic Foot Exam 01/04/2025 01/05/2024, 0 2022, 03/09/2018, Additional history exists DTap/Tdap Vaccines (4 - Td or Tdap) 04/13/2028 04/13/2018, 04/13/2018, 04/07/2008 Lipid Panel 01/02/2029 01/03/2024, 03/07, 12/28/2022, Additional history exists DXA Scan 06/28/2029 06/28/2022, 04/02/2018 Colonoscopy 01/25/2031 01/25/2021 Colorectal Cancer Screening 01/25/2031 Zoster Vaccines Completed 07/15/2019, 03/06, 10/02/2012 Pneumococcal Vaccine: 65+ Years Completed 12/01/2021, 11/30/2017, 01/19/2016, Additional history exists Hepatitis B Vaccine Completed 07/04/2023, 02/20/2023, 01/18/2023 HPV (Gardasil) Vaccine Aged Out No lo nger eligible based on patient's age to complete this topic MENINGOCOCCAL (MENACTRA/MENVEO) Aged Out No longer eligible based on patient's age to complete this topic documented as of this encounter Medical Devices Not on filedocumented as of this encounter Visit Diagnoses Diagnosis Type 2 diabetes mellitus with hemoglobin A1c goal of less than 7.0% (HCC)- Primary documented in this encounter Care Teams Scourer Relationship Specialty Start Date End Date Arti Gutierrez MD [address] [facility] [place] [address] PCP - General Internal Medicine 09/23/22 documented as of this encounter
--- OUTSIDE RECORDS SUMMARY | 2024-02-05 19:45 | External Medical Summary ---
Author Name Unknown Address Unknown Organization [id number] [place] [address] Laboratory Report Ordering Provider Test Date Status GEMMA [place] 01/03/2024 08:55:51 Final Observation Date Value Abnormality Reference (Units ) Status SYNC LEUKOCYTES IN BLOOD BY AUTOMATED COUNT 01/03/2024 08:55:51 11.48 Above high normal 4.00-10.80 (K/uL) Final Segs 01/03/2024 08:55:51 59.1 40.0-75.0 (%) Final Lymphs % 01/03/2024 08:55:51 32.7 18.0-42.0 (%) Final Monos 01/03/2024 08:55:51 4.6 1.0-11.0 (%) Final Eosinophils 01/03/2024 08:55:51 3.0 0.0-6.0 (%) Final Basos 01/03/2024 08:55:51 0.6 0.0-2.0 (%) Final Absolute Segs 01/03/2024 08:55:51 6.79 1.80-7.70 (K/uL) Final Lymphs, absolute 01/03/2024 08:55:51 3.75 1.00-4.80 (K/ul) Final Monos, Abs 01/03/2024 08:55:51 0.53 0.00-1.10 (K/uL) Final Eos, Abs 01/03/2024 08:55:51 0.34 0.00-0.70 (K/uL) Final Basos, Abs 01/03/2024 08:55:51 0.07 0.00-0.20 (K/uL) Final Performing Location [facility] [address] [place] [address]
--- OUTSIDE RECORDS SUMMARY | 2024-02-05 19:45 | External Medical Summary ---
Author Name Unknown Address Unknown Organization [id number] [place] [address] Laboratory Report Ordering Provider Test Date Status GEMMA MENDOSA 01/03/2024 08:55:51 Final Observation Date Value Abnormality Reference (Units ) Status Magnesium 01/03/2024 08:55:51 1.8 1.5-2.6 (m g/dL) Final Performing Location [facility] [place] [address]
--- OUTSIDE RECORDS SUMMARY | 2024-02-05 19:45 | External Medical Summary ---
Author Name Unknown Address Unknown Organization [id number] [place] [address] Laboratory Report Ordering Provider Test Date Status GEMMA MENDOSA 01/03/2024 08:55:51 Final Observation Date Value Abnormality Reference (Units ) Status WBC, Total 01/03/2024 08:55:51 11.48 Above high normal 4 .00-10.80 (K/uL) Final RBC 01/03/2024 08:55:51 4.39 3.85-5.15 (M/uL) Final Hemoglobin 01/03/2024 08:55:51 13.5 12.0-15.3 (g/dL) Final HCT 01/03/2024 08:55:51 39.3 36.0-45.2 (%) Final MCV 01/03/2024 08:55:51 89.5 81.5-97.5 (fL) Final MCH 01/03/2024 08:55:51 30.8 27.0-34.0 (pg) Final MCHC 01/03/2024 08:55:51 34.4 32.0-36.0 (g/dL) Final RDW 01/03/2024 08:55:51 13.3 11.5-15.5 (%) Final Platelets 01/03/2024 08:55:51 268 140-400 (K /uL) Final MPV 01/03/2024 08:55:51 9.3 6.6-11.1 ( fL) Final Performing Location [place] [place] [address]
--- OUTSIDE RECORDS SUMMARY | 2024-02-05 19:45 | External Medical Summary | Summary of Care ---
Author Name Unknown Organization [facility] Address [address] [place] [address] Phone [phone] Care Team Providers Care Pyridine Recovery Operator Name Role Phone Arti Gutierrez MD Primary Care Provider [phone] Reason for Visit * Reason Comments Outpatient Testing Encounter Details Date Type Department Care Team (Late st Contact Info) Description 01/03/2024 8:50 AM EDT Laboratory Laboratory [facility] [place] [address] [place] [phone] [facility] Lab [facility] 200 [facility] [place] [id number] Type 2 diabetes mellitus with hemoglobin A1c goal of less than 7.0% ([facility]); Encounter for long-term (current) use of medications; DYSLIPIDEMIA, GOAL LDL BELOW 100; HTN, goal below 130/80; Leukocytosis, unspecified type; Microalbuminuria due to type 2 diabetes mellitus (HCC); CKD (chronic kidney disease) stage 2, GFR 60-89 ml/min Allergies Active Allergy Reactions Criticality Noted Date Comments Pioglitazone Hydrochloride 9 Gi upset Semaglutide Diarrhea,Nausea/vomiting 11/04/2022 documented as of this encounter (statuses as of 01/03/2024) Medications Medication Sig Dispensed Refills Start Date [...] Capsule by mouth in the morning. Active Loratadine 10 MG Oral Tablet Take 1 Tablet by mouth in the morning. 30 Tablet 11 2022 Active Fiber Select Gummies Oral Tablet Chewable Take 1 Tablet by mouth in the morning. 5 g =2 gummies/d. 1 Tablet 2022 Active ReliOn All-In-One DeviceIndications:Un controlled type 2 diabetes mellitus with hyperglycemia (HCC) Use as directed. 1 Each 09/27/2022 Active Biotin 5000 MCG Oral Capsule Take 1,000 Capsules by mouth once. Active amLODIPine Besylate 2.5 MG Oral Tablet (Norvasc)Indications :HTN, goal below 140/80,Microalbuminu lizet due to type 2 diabetes mellitus (HCC),Nonrheumatic mitral valve regurgitation,Nonrhe umatic aortic valve stenosis Take 1 Tablet by [...] 3 07/05/2023 Active Lisinopril 40 MG Oral TabletIndications:HT N, goal below 140/80,Type 2 diabetes mellitus with hemoglobin A1c goal of less than 7.0% (HCC),Microalbuminur ia due to type 2 diabetes mellitus (HCC),Dehydration TAKE 1 TABLET BY MOUTH EVERY DAY IN THE MORNING 90 Tablet 1 08/28/2023 Active Mounjaro 7.5 MG/0.5ML Subcutaneous Solution Pen-injector (Tirzepatide)Indicat ions:Type 2 diabetes mellitus with hemoglobin A1c goal of less than 7.0% (HCC) Inject 7.5 mg under the skin once a week. 2 mL 11 09/19/2023 09/18/2024 Active busPIRone HCl 5 MG Oral Tablet (Buspar)Indications: Situational stress TAKE 1 TABLET BY MOUTH IN THE MORNING AND BEFORE BEDTIME 180 Tablet 1 10/11/2023 Active glipiZIDE ER 5 MG Oral Tablet Extended Release 24 Hour (Glucotrol XL)Indications:Uncon trolled type 2 diabetes mellitus with hyperglycemia (HCC) TAKE 1 TABLET BY MOUTH IN THE MORNING AND IN THE EVENING 180 Tablet 2 10/11/2023 Active Metoprolol Succinate ER 50 MG Oral Tablet Extended Release 24 Hour (toPROL XL)Indications:HTN, goal below 140/80,Non-rheumatic aortic sclerosis,Type 2 diabetes mellitus with hemoglobin A1c goal of less than 7.0% (HCC),Nonrheumatic mitral valve regurgitation,Nonrhe umatic aortic valve stenosis TAKE 1 TABLET BY MOUTH EVERY DAY IN THE MORNING 90 Tablet 1 11/13/2023 Active Atorvastatin Calcium 40 MG Oral Tablet (Lipitor)Indications :Dyslipidemia, goal LDL below 100 TAKE 1 TABLET BY MOUTH EVERY DAY IN THE MORNING 90 Tablet 1 11/23/2023 Active documented as of this encounter (statuses as of 01/03/2024) Active Problems Problem Noted Date Diagnosed Date CKD (chronic kidney disease) stage 2, GFR [...] as of this encounter (statuses as of 01/03/2024) Resolved Problems Problem Noted Date Diagnosed Date [...] as of this encounter (statuses as of 01/03/2024) Immunizations Name Administration Dates Next Due COVID-19 [...] on file documented as of this encounter Plan of Treatment Upcoming Encounters Date Type Department Care Team (Late st Contact Info) Description 01/05/2024 1:00 PM EDT Office Visit General Internal Medicine [facility] [address] [facility] [place] [address] Arti Gutierrez MD 200 [facility] [place] [phone] 01/05/2024 1:40 PM EDT Office Visit Pharmacy, [facility] [address] [facility] [place] [address] Pharmacist1, [facility] Sp 200 [facility] [place] [phone] 02/20/2024 9:15 AM EST Imaging Radiology [facility] 1st [facility] [address] [place] [address] 05/09/2024 11:00 AM EST Cardiac Studies Cardiac Studies, [facility] [address] [place] [phone] 06/03/2024 8:30 AM EDT Office Visit Cardiology, [facility] [address] [place] [address] Tye Garcia MD [address] [place] [phone] Pending Results Name Type Priority Associated Diagnoses Date /Time VITAMIN B12 Lab Routine Type 2 diabetes mellitus with hemoglobin A1c goal of less than 7.0% (HCC) Encounter for long-term (current) use of medications 01/03/2024 8:55 AM EDT ALT Lab Routine Type 2 diabetes mellitus with hemoglobin A1c goal of less than 7.0% ([facility]) DYSLIPIDEMIA, GOAL LDL BELOW 100 01/03/2024 8:55 AM EDT BASIC METABOLIC PANEL Lab Routine Type 2 diabetes mellitus with hemoglobin A1c goal of less than 7.0% ([facility]) 01/03/2024 8:55 AM EDT LIPID PANEL WITH DIRECT LDL IF TG IS HIGH Lab Routine Type 2 diabetes mellitus with hemoglobin A1c goal of less than 7.0% ([facility]) DYSLIPIDEMIA, GOAL LDL BELOW 100 01/03/2024 8:55 AM EDT HEMOGLOBIN A1C Lab Routine Type 2 diabetes mellitus with hemoglobin A1c goal of less than 7.0% ([facility]) 01/03/2024 8:55 AM EDT MAGNESIUM Lab Routine Type 2 diabetes mellitus with hemoglobin A1c goal of less than 7.0% ([facility]) Encounter for long-term (current) use of medications 01/03/2024 8:55 AM EDT TSH WITH FREE T4 IF INDICATED Lab Routine Type 2 diabetes mellitus with hemoglobin A1c goal of less than 7.0% ([facility]) HTN, goal below 130/80 01/03/2024 8:55 AM EDT THYROID ANTIBODY AND TPO ANTIBODY Lab Routine Type 2 diabetes mellitus with hemoglobin A1c goal of less than 7.0% ([facility]) 01/03/2024 8:55 AM EDT CBC WITH WBC DIFFERENTIAL Lab Routine Leukocytosis, unspecified type 01/03/2024 8:55 AM EDT CBC Lab Routine Leukocytosis, unspecified type 01/03/2024 8:55 AM EDT DIFFERENTIAL, AUTOMATED Lab Routine Leukocytosis, unspecified type 01/03/2024 8:55 AM EDT ALBUMIN / CREATININE RATIO, URINE Lab Routine Type 2 diabetes mellitus with hemoglobin A1c goal of less than 7.0% ([facility]) Microalbuminuria due to type 2 diabetes mellitus ([facility]) CKD (chronic kidney disease) stage 2, GFR 60-89 ml/min 01/03/2024 8:59 AM EDT Health Maintenance Due Date Last Done Comments Cologuard 1997 Sigmoidoscopy 1997 Adult Wellness Visit 2018 Diabetic Eye Exam 08/09/2023 08/08/2022, , 01/12/2016, Additional history exists Depression Screening 09/24/2023 2022 Diabetic Foot Exam 09/24/2023 2022, 0 03/09/2018, 01/14/2016, Additional history exists B-12 09/25/2023 09/24/2022, 03/09/2018 COVID-19 Vaccine ( season) 2023 12/28/2022, 12/15/2021, 06/10/2021, Additional history exists Influenza Vaccine (FLU shot) (#1) 2023 12/28/2022, 11/15/2021, 11/23/2020, Additional history exists Mammogram 02/17/2024 02/16/2023, 02/03, 01/11/2021, Additional history exists HbA1c 04/04/2024 10/03/2023, 06/05, 03/31/2023, Additional history exists Fecal Occult Blood Test 04/08/2024 04/08/2023 Albumin/Creatinine Ratio 06/30/2024 024, 03/31/2023, 12/28/2022, Additional history exists GFR 06/30/2024 07/01/2023, 02/0 08/2023, 03/31/2023, Additional history exists Lipid Panel 03/31/2028 03/31/2023, 12/05, 09/24/2022, Additional history exists DTap/Tdap Vaccines (4 - Td or Tdap) 04/13/2028 04/13/2018, 04/13/2018, 04/07/2008 DXA Scan 06/28/2029 06/28/2022, 04/02/2018 Colonoscopy 01/25/2031 [...] A1c goal of less than 7.0% (HCC) Encounter for long-term (current) use of medications Encounter for long-term (current) use of other medications DYSLIPIDEMIA, GOAL LDL BELOW 100 Other and unspecified hyperlipidemia HTN, goal below 130/80 Unspecified essential hypertension Leukocytosis, unspecified type Microalbuminuria due to type 2 diabetes mellitus (HCC) CKD (chronic kidney disease) stage 2, GFR 60-89 ml/min Chronic kidney disease, Stage II (mild) documented in this encounter Care Teams Pyridine Recovery Operator Relationship Specialty Start Date End Date Arti Gutierrez MD [address] [facility] [place] [address] PCP - General Internal Medicine 09/23/22 documented as of this encounter
--- OUTSIDE RECORDS SUMMARY | 2024-02-05 19:45 | External Medical Summary ---
Author Name Unknown Address Unknown Organization [id number]:LAB[facility]ATORY [place] [address] [address] [facility] [address] Laboratory Report Ordering Provider Test Date Status GEMMA MENDOSA 01/03/2024 08:55:51 Final Observation Date Value Abnormality Reference (Units ) Status Thyroperoxidase Ab [Units/volume] in Serum or Plasma by Immunoassay 01/03/2024 08:55:51 6.6 <34.0 (IU/mL) Final Thyroglobulin Ab 01/03/2024 08:55:51 13.0 <115.0 (IU/mL) Final Performing Location LABORATORY [facility] - [facility] [place] [address]
--- OUTSIDE RECORDS SUMMARY | 2024-02-05 19:45 | External Medical Summary ---
Author Name Unknown Address Unknown Organization [id number]:[facility] [place] [address] Laboratory Report Ordering Provider Test Date Status GEMMA MENDOSA 01/03/2024 08:55:51 Final Observation Date Value Abnormality Reference (Units ) Status BUN 01/03/2024 08:55:51 32 Above high normal 6-20 (mg/dL) Final Creatinine 01/03/2024 08:55:51 1.0 0.5-1.0 (mg/dL) Final Glomerular filtration rate/1.73 sq M.predicted [Volume Rate/Area] in Serum, Plasma or Blood by Creatinine-based formula (CKD-EPI) 01/03/2024 08:55:51 60 >=60 (mL/min) Final eGFR is calculated based on the CKD-EPI 2020 equation. Sodium 01/03/2024 08:55:51 137 135-146 (m mol/L) Final Potassium 01/03/2024 08:55:51 4.7 3.5-5.1 (m mol/L) Final Cl 01/03/2024 08:55:51 99 98-107 (mm ol/L) Final CO2 01/03/2024 08:55:51 24 22-32 (mmo l/L) Final Anion gap 01/03/2024 08:55:51 14 7-15 (mmol /L) Final Glucose 01/03/2024 08:55:51 145 Above high normal 70 -120 (mg/dL) Final Calcium 01/03/2024 08:55:51 9.7 8.4-10.2 ( mg/dL) Final Performing Location [facility] [place] [address]
--- OUTSIDE RECORDS SUMMARY | 2024-02-05 19:45 | External Medical Summary ---
Author Name Unknown Address Unknown Organization [id number]:[facility] [place] [address] [facility] [address] Laboratory Report Ordering Provider Test Date Status GEMMA MENDOSA 01/03/2024 08:55:51 Final Observation Date Value Abnormality Reference (Units ) Status Triglyceride 01/03/2024 08:55:51 142 <=174 ( mg/dL) Final Triglyceride Reference Range s (mg/dL):
<150 Acceptable
150-174 Borderline high
175-499 High
>=500 Very high Cholesterol 01/03/2024 08:55:51 149 <200 (mg /dL) Final Total Cholesterol Reference Ranges (mg/dL):
<200 Desirable
200-239 Borderline high
>=240 High HDL 01/03/2024 08:55:51 45 Below low normal >49 (mg/dL) Final HDL Cholesterol Reference Ra nges (mg/dL):
>=60 High (Desirable)
<50 Low (Undesirable) For Females
<40 Low (Undesirable) For Males NON-HDL CHOLESTEROL 01/03/2024 08:55:51 104 <=159 (mg/dL) Final Non-HDL Cholesterol Referenc e Range (mg/dL):
<100 Target level for high risk ASCVD patient
<130 Optimal for general population
130-159 Near optimal for general population
160-189 Borderline High
190-219 High
>=220 Very High LDL, (calculated) 01/03/2024 08:55:51 76 <= 129 (mg/dL) Final LDL Cholesterol Reference Ra nges (mg/dL):
<70 Target level for high risk ASCVD patient
<100 Optimal for general population
100-129 Near optimal for general population
130-159 Borderline high
160-189 High
>=190 Very high Performing Location [facility] [place] [address] [facility] [address]
--- OUTSIDE RECORDS SUMMARY | 2024-02-05 19:45 | External Medical Summary ---
Author Name Unknown Address Unknown Organization [id number]:LABORATORY [facility] - [facility] [address] [facility] [address] [facility] [address] Laboratory Report Ordering Provider Test Date Status GEMMA MENDOSA 01/03/2024 08:55:51 Final Observation Date Value Abnormality Reference (Units ) Status HbA1C 01/03/2024 08:55:51 6.0 Above high normal 4. 0-5.6 (%) Final The use of HbA1c to monitor glycemic status is based on normal hemoglobin and HbA composition. This test should not be used in patients with abnormal hemoglobin that affects the half life of the red blood cell or the in vivo glycation rates. Glucose, estimated average 01/03/2024 08:55:51 126 Above high normal <126 (mg/dL) Praveen lemus Performing Location LAB[facility]ATORY [facility] - [address] [facility] [address]
--- OUTSIDE RECORDS SUMMARY | 2024-02-05 19:45 | External Medical Summary ---
Author Name Unknown Address Unknown Organization K09:[place] [address] Laboratory Report Ordering Provider Test Date Status GEMMA MENDOSA 01/03/2024 08:55:51 Final Observation Date Value Abnormality Reference (Units ) Status ALT (Alanine aminotransferase) 01/03/2024 08:55:51 18 10-35 (U/L) Final Performing Location [place] [address]
--- OUTSIDE RECORDS SUMMARY | 2024-02-05 19:45 | External Medical Summary ---
Author Name Unknown Address Unknown Organization [id number]:LABORATORY [facility] [place] - [address] [facility] [address] Laboratory Report Ordering Provider Test Date Status GEMMA MENDOSA 01/03/2024 08:55:51 Final Observation Date Value Abnormality Reference (Units ) Status TSH 01/03/2024 08:55:51 2.91 0.27-4.20 (uIU/mL) Final Performing Location LAB[facility]ATORY [facility] [place] - [address] [facility] [address]
--- OUTSIDE RECORDS SUMMARY | 2024-02-05 19:45 | External Medical Summary | Summary of Care ---
Author Name Unknown Organization [facility] Address [address] [place] [address] Phone [phone] Care Team Providers Care Bean Sprout Laborer Name Role Phone Arti Gutierrez MD Primary Care Provider [phone] Reason for Visit * Reason Comments Outpatient Testing Encounter Details Date Type Department Care Team (Late st Contact Info) Description 01/03/2024 8:50 AM EDT Laboratory Laboratory [facility] [place] [address] [place] [phone] [facility] Lab [facility] 200 [facility] [place] [phone] Type 2 diabetes mellitus with hemoglobin A1c goal of less than 7.0% ([facility]); Encounter for long-term (current) use of medications; [...] PM EDT Office Visit General Internal Medicine [facility] 200 [facility] [place] [address] Arti Gutierrez MD 200 [facility] [place] [phone] 01/05/2024 1:40 PM EDT Office Visit Pharmacy, [facility] [place] [address] Pharmacist1, [facility] [address] [facility] [place] [phone] 02/20/2024 9:15 AM EST Imaging Radiology [facility] 1st [facility] [address] [place] [address] 05/09/2024 11:00 AM EST Cardiac Studies Cardiac Studies, [facility] [address] [place] [address] 06/03/2024 8:30 AM EDT Office Visit Cardiology, [facility] [address] [place] [address] Tye Garcia MD [address] [place] [phone] Pending Results Name Type Priority Associated Diagnoses Date /Time VITAMIN B12 Lab Routine Type 2 diabetes mellitus with hemoglobin A1c goal of less than 7.0% (HCC) Encounter for long-term (current) use of medications 01/03/2024 8:55 AM EDT ALT Lab Routine Type 2 diabetes mellitus with hemoglobin A1c goal of less than 7.0% ([facility]) DYSLIPIDEMIA, GOAL LDL BELOW 100 01/03/2024 8:55 AM EDT BASIC METABOLIC PANEL Lab Routine Type 2 diabetes mellitus with hemoglobin A1c goal of less than 7.0% ([facility]) 01/03/2024 8:55 AM EDT LIPID PANEL WITH DIRECT LDL IF TG IS HIGH Lab Routine Type 2 diabetes mellitus with hemoglobin A1c goal of less than 7.0% ([facility]) DYSLIPIDEMIA, GOAL LDL BELOW 100 01/03/2024 8:55 AM EDT HEMOGLOBIN A1C Lab Routine Type 2 diabetes mellitus with hemoglobin A1c goal of less than 7.0% ([facility]) 01/03/2024 8:55 AM EDT MAGNESIUM Lab Routine Type 2 diabetes mellitus with hemoglobin A1c goal of less than 7.0% ([facility]) Encounter for long-term (current) use of medications 01/03/2024 8:55 AM EDT TSH WITH FREE T4 IF INDICATED Lab Routine Type 2 diabetes mellitus with hemoglobin A1c goal of less than 7.0% ([facility]) HTN, goal below 130/80 01/03/2024 8:55 AM EDT THYROID ANTIBODY AND TPO ANTIBODY Lab Routine Type 2 diabetes mellitus with hemoglobin A1c goal of less than 7.0% ([facility]) 01/03/2024 8:55 AM EDT ALBUMIN / CREATININE RATIO, URINE Lab Routine Type 2 diabetes mellitus with hemoglobin A1c goal of less than 7.0% ([facility]) Microalbuminuria due to type 2 diabetes mellitus ([facility]) CKD (chronic kidney disease) stage 2, GFR [...] 12/28/2022, Additional history exists GFR 06/30/2024 07/01/2023, 020 08/2023, 03/31/2023, Additional history exists Lipid Panel [...] Not on filedocumented as of this encounter Procedures Procedure Name Priority Date/Time Associated Diagnosis Comments DIFFERENTIAL, AUTOMATED Routine 01/03/2024 8:55 AM EDT Leukocytosis, unspecified type CBC Routine 01/03/2024 8:55 AM EDT Leukocytosis, unspecified type CBC Routine 01/03/2024 8:55 AM EDT Leukocytosis, unspecified type documented in this encounter Results * (ABNORMAL) DIFFERENTIAL, AUTOMATED (01/03/2024 8:55 AM EDT) WBC 11.48(H) 4.00 - 10.80 K/uL 01/03/2024 9:03 AM EDT [facility] [place] [facility]02 Neutrophils % 59.1 40.0 - 75.0 % 01/03/2024 9:03 AM EDT [facility] [place] [facility] Lymphocytes % 32.7 18.0 - 42.0 % 01/03/2024 9:03 AM EDT LAB[facility]ORY [facility] [place] [facility]02 Monocytes % 4.6 1.0 - 11.0 % 01/03/2024 9:03 AM EDT [facility] [place] [facility]02 Eosinophils % 3.0 0.0 - 6.0 % 01/03/2024 9:03 AM EDT [facility] [place] [facility] Basophils % 0.6 0.0 - 2.0 % 01/03/2024 9:03 AM EDT [facility] [place] [facility]02 Absolute Neutrophils 6.79 1.80 - 7.70 K/uL 01/03/2024 9:03 AM EDT [facility] [place] [facility]02 Absolute Lymphocytes 3.75 1.00 - 4.80 K/ul 01/03/2024 9:03 AM EDT [facility] [place] [facility]02 Absolute Monocytes 0.53 0.00 - 1.10 K/uL 01/03/2024 9:03 AM EDT [facility] [place] [facility]02 Absolute Eosinophils 0.34 0.00 - 0.70 K/uL 01/03/2024 9:03 AM EDT [facility] [place] [facility]02 Absolute Basophils 0.07 0.00 - 0.20 K/uL 01/03/2024 9:03 AM EDT LABORATORY [place] 56-02 Blood Venous blood specimen / Unknown Venipuncture / Unknown 01/03/2024 8:55 AM EDT 01/03/2024 8:56 AM EDT Arti Gutierrez MD LAB BLOOD ORDERABLES [facility] 56 [address] [place], [place] [id number] * (ABNORMAL) CBC (01/03/2024 8:55 AM EDT) WBC 11.48(H) 4.00 - 10.80 K/uL 01/03/2024 9:03 AM EDT [facility] 56 RBC 4.39 3.85 - 5.15 M/uL 01/03/2024 9:03 AM EDT [facility] 56 HGB 13.5 12.0 - 15.3 g/dL 01/03/2024 9:03 AM EDT [facility] 56 HCT 39.3 36.0 - 45.2 % 01/03/2024 9:03 AM EDT [facility] 56 MCV 89.5 81.5 - 97.5 fL 01/03/2024 9:03 AM EDT [facility] 56 MCH 30.8 27.0 - 34.0 pg 01/03/2024 9:03 AM EDT [facility] 56 MCHC 34.4 32.0 - 36.0 g/dL 01/03/2024 9:03 AM EDT [facility] 56 RDW 13.3 11.5 - 15.5 % 01/03/2024 9:03 AM EDT [facility] 56- PLT 268 140 - 400 K/uL 01/03/2024 9:03 AM EDT [facility] 56- MPV 9.3 6.6 - 11.1 fL 01/03/2024 9:03 AM EDT [facility] 56- Blood Venous blood specimen / Unknown Venipuncture / Unknown 01/03/2024 8:55 AM EDT 01/03/2024 8:56 AM EDT Arti Gutierrez MD LAB BLOOD ORDERABLES [facility] [address] [place] [phone] documented in this encounter Visit Diagnoses Diagnosis Type 2 [...] (mild) documented in this encounter Care Teams Bean Sprout Laborer Relationship Specialty Start Date End Date Arti Gutierrez MD [address] [place] [address] PCP - General Internal Medicine 09/23/22 documented as of this encounter
--- OUTSIDE RECORDS SUMMARY | 2024-02-05 19:45 | External Medical Summary ---
Author Name Unknown Address Unknown Organization K01:[facility] [place] [address] [place] [address] Laboratory Report Ordering Provider Test Date Status NAVYAGEMMA 01/03/2024 08:59:53 Final Normal: <30 mg/g creatinine< br/>High: 30-300 mg/g creatinine
Very High: >300 mg/g creatinine
Nephrotic: >2200 mg/g creatinine Observation Date Value Abnormality Reference (Units ) Status Albumin, Urine 01/03/2024 08:59:53 11.00 (mg/dL) Final Creatinine, Urine 01/03/2024 08:59:53 74 (mg/dL) Final Albumin/Creatinine [Mass Ratio] in Urine 01/03/2024 08:59:53 149 Above high normal <30 (mg/g Creat) Final Performing Location LAB[facility]ORY [facility] [place] [address] [place] [address]
--- OUTSIDE RECORDS SUMMARY | 2024-02-05 19:45 | External Medical Summary | Summary of Care ---
Author Name Unknown Organization [facility] Address [address] [place] [address] Phone [phone] Care Team Providers Care Denture Packer Name Role Phone Arti Gutierrez MD Primary Care Provider [phone] Reason for Visit * Reason Comments Follow Up Encounter Details Date Type Department Care Team (Late st Contact Info) Description 01/05/2024 1:00 PM EDT Office Visit General Internal Medicine [facility] [address] [facility] [place] [address] Arti Gutierrez MD [address] [place] [address] Type 2 diabetes mellitus with hemoglobin A1c goal of less than 7.0% ([facility])*; Microalbuminuria due to type 2 diabetes mellitus ([facility]); HTN, goal below 130/80; DYSLIPIDEMIA, GOAL LDL BELOW 100; CKD (chronic kidney disease) stage 2, GFR 60-89 ml/min; Nonrheumatic mitral valve regurgitation; Non-rheumatic aortic sclerosis; Situational stress; DM type 2 nursing care encounter ([facility]); Seasonal allergic rhinitis due to pollen; Elevated BUN; White coat syndrome with diagnosis of hypertension Allergies Active Allergy Reactions Criticality Noted Date Comments Pioglitazone Hydrochloride 9 Gi upset Semaglutide Diarrhea,Nausea/vomiting 11/04/2022 documented as of this encounter (statuses as of 01/27/2024) Medications ASPIRIN 81 MG PO CHEWIndications:D M type 2, not at goal ([facility]),HTN, goal below 140/90 One pill by mouth once a day with food 100 5 12/05/19 09 Active OCUVITE-LUTEIN PO CAPS 1 tab by mouth daily Active M-VIT PO TABS 1 tab by mouth daily Active Fluticasone Propionate 50 MCG/ACT Nasal Suspension (Flonase) ADMINISTER 1 SPRAY INTO NOSTRIL DAILY. 48 mL 07/08/19 21 Active Fish Oil 1200 MG Oral Capsule Take 1,200 mg by mouth in the morning. Active B Complex Vitamins Oral Capsule Take 1 Capsule by mouth in the morning. Active Fiber Select Gummies Oral Tablet Chewable Take 1 Tablet by mouth in the morning. 5 g =2 gummies/d. 1 Tablet 09/24/19 23 Active ReliOn All-In-One DeviceIndications :Uncontrolled type 2 diabetes mellitus with hyperglycemia (HCC) Use as directed. 1 Each 09/28/19 23 Active Biotin 5000 MCG Oral Capsule Take 1,000 Capsules by mouth once. Active amLODIPine Besylate 2.5 MG Oral Tablet (Norvasc)Indicati ons:HTN, goal below 140/80,Microalbum inuria due to type 2 diabetes mellitus (HCC),Nonrheumati c mitral valve regurgitation,Non rheumatic aortic valve stenosis Take 1 Tablet by mouth in the morning and 1 Tablet before bedtime. 180 Tablet 3 05/09/19 24 Active metFORMIN HCl ER 500 MG Oral Tablet Extended Release 24 Hour (Glucophage XR)Indications:Ty pe 2 diabetes mellitus with hemoglobin A1c goal of less than 7.0% (HCC) Take 2 Tablets by mouth 2 times a day with morning and evening meals. 360 Tablet 3 07/05/19 24 Active Lisinopril 40 MG Oral TabletIndications :HTN, goal below 140/80,Type 2 diabetes mellitus with hemoglobin A1c goal of less than 7.0% (HCC),Microalbumi myesha due to type 2 diabetes mellitus (HCC),Dehydration TAKE 1 TABLET BY MOUTH EVERY DAY IN THE MORNING 90 Tablet 1 08/28/19 24 Active busPIRone HCl 5 MG Oral Tablet (Buspar)Indicatio ns:Situational stress TAKE 1 TABLET BY MOUTH IN THE MORNING AND BEFORE BEDTIME 180 Tablet 1 10/11/19 24 Active glipiZIDE ER 5 MG Oral Tablet Extended Release 24 Hour (Glucotrol XL)Indications:Un controlled type 2 diabetes mellitus with hyperglycemia (HCC) TAKE 1 TABLET BY MOUTH IN THE MORNING AND IN THE EVENING 180 Tablet 2 10/11/19 24 Active Metoprolol Succinate ER 50 MG Oral Tablet Extended Release 24 Hour (toPROL XL)Indications:HT N, goal below 140/80,Non-rheuma tic aortic sclerosis,Type 2 diabetes mellitus with hemoglobin A1c goal of less than 7.0% (HCC),Nonrheumati c mitral valve regurgitation,Non rheumatic aortic valve stenosis TAKE 1 TABLET BY MOUTH EVERY DAY IN THE MORNING 90 Tablet 1 11/13/19 24 Active Atorvastatin Calcium 40 MG Oral Tablet (Lipitor)Indicati ons:Dyslipidemia, goal LDL below 100 TAKE 1 TABLET BY MOUTH EVERY DAY IN THE MORNING 90 Tablet 1 11/23/19 24 Active Cetirizine HCl 10 MG Oral Tablet (ZyrTEC Allergy)Indicatio ns:Seasonal allergic rhinitis due to pollen Take 1 Tablet by mouth in the morning. 01/05/20 24 Active Loratadine 10 MG Oral Tablet Take 1 Tablet by mouth in the morning. 30 Tablet 11 09/24/19 23 024 Discontin ued(Patie nt preferenc e/discont inuation) Mounjaro 7.5 MG/0.5ML Subcutaneous Solution Pen-injector (Tirzepatide)Fatemeh cations:Type 2 diabetes mellitus with hemoglobin A1c goal of less than 7.0% (HCC) Inject 7.5 mg under the skin once a week. 2 mL 11 12/25/2023 12:28 PM EDT 09/19/19 024 Discontin ued(Medic ation/Dos e Changed) documented as of this encounter (statuses as of 01/27/2024) Active Problems Problem Noted Date Diagnosed Date Nonrheumatic mitral valve regurgitation 01/05/20 Advance directive on file 01/05/2024 Overview (01/05/2024): 12/27--Full code, DNR if terminal, wishes to [...] #27. DYSLIPIDEMIA, GOAL LDL BELOW 100 02/12/2009 Overview (02/12/2009): Per Lipid Taxonomy. Type 2 diabetes mellitus wit h hemoglobin A1c goal of less than 7.0% 12/18/2008 Overview (06/30/2015): Modified per Diabetes protocol #14. ICD-10 update of inactive term documented as of this encounter (statuses as of 01/27/2024) Resolved Problems Problem Noted Date Diagnosed Date Resolved Date Age-related incipient cataract of both eyes 2022 07/04/2023 HTN, GOAL BELOW 140/80 10/24/201106/10 Overview: Per HTN Protocol #27. Asthma with severity to be determined 08/27/2009 03/28/2011 Overview (06/15/2015): Per Asthma Taxonomy ICD-10 update of inactive term Asthma with severity to be determined 08/27/2009 03/28/2011 Overview (06/15/2015): Per Asthma Taxonomy ICD-10 update of inactive term Asthma with severity to be determined 08/27/2009 12/13/2011 Overview (06/15/2015): Per Asthma Taxonomy ICD-10 update of inactive term Severe obesity with body mas s index (BMI) of 35.0 to 39.9 with serious comorbidity 08/17/2009 Overview (12/20/2017): Per Obesity Protocol, #19 ICD-10 update of inactive diagnosis HTN, goal below 130/80 04/01/200903/28 Overview (04/01/2009): Per HTN Taxonomy. HTN, goal below 130/80 04/01/200903/28 Overview (04/01/2009): Per HTN Taxonomy. HTN, GOAL BELOW 130/80 04/01/200910/26 Overview (04/01/2009): Per HTN Taxonomy. Dyslipidemia, goal LDL below 100 02/12/2009 03/28/2011 Overview (02/12/2009): Per Lipid Taxonomy. Type 2 diabetes mellitus wit h hemoglobin A1c goal of less than 7.0% 12/18/2008 03/28/2011 Overview (06/30/2015): Modified per Diabetes protocol #14. ICD-10 update of inactive term Type 2 diabetes mellitus wit h hemoglobin A1c goal of less than 7.0% 12/18/2008 03/28/2011 Overview (06/30/2015): Modified per Diabetes protocol #14. ICD-10 update of inactive term Status asthmaticus 04/07/2008 0 HTN, goal below 140/90 04/07/200804/01 Overview (04/01/2009): Per HTN Taxonomy. Dyslipidemia, goal LDL below 160 04/07/2008 02/12/2009 Overview (02/12/2009): Per Lipid Taxonomy. Status asthmaticus 0 Status asthmaticus 0 Dyslipidemia, goal LDL below 160 02/12/2009 Overview (02/12/2009): Per Lipid Taxonomy. HTN, goal below 140/90 04/01 Overview (04/01/2009): Per HTN Taxonomy. DM type 2, not at goal 12/18 Overview (12/18/2008): Modified per Diabetes protocol #14. DM type 2, not at goal 12/18 Overview (12/18/2008): Modified per Diabetes protocol #14. DM type 2, not at goal 12/18 Overview (12/18/2008): Modified per Diabetes protocol #14. HTN, goal below 140/90 04/01 Overview (04/01/2009): Per HTN Taxonomy. Intermittent asthma, well controlled 07/04/2013 documented as of this encounter (statuses as of 01/27/2024) Immunizations Name Administration Dates Next Due COVID-19 mRNA, LNP-s, No Pre serve, 2-Dose Series (Moderna) 12/28/2022,05/13/2020,04/15/2020 COVID-19, MRNA-LNP, PF, 50 M CG/0.5 mL, 12 YRS AND ABOVE, IM (MODERNA-Spikevax) 12/05/2023 COVID-19, mRNA, LNP-s, PF, B ooster, 100mcg/0.5mg [...] Vac., MDV , IM, 0.5 mL (Fluzone) 11/17/2014,12/26/2013,11/19/2012,09/0 04/2011,11/26/2010,11/23/2009,12/05/19 09,12/02/2007 Seasonal Influenza Virus Vac cine, Unspecified Formulation 11/28/2019,11/05/2018 Seasonal Influenza, PF, 6 M & above, IM , (FluLaval or Fluzone) 12/05/2023,11/30/2017,12/16/2016 Seasonal Influenza, Quadriva lent Hd (Fluzone Hd) [...] years and over) Not on file 08/22/2023 Comments No Sex and Gender Information Value Date Recorded Sex Assigned at Female 08/09/2018 11:51 AM EDT Legal Sex Female 5:57 AM EST Gender Identity Female 08/09/2018 11:51 AM EDT Sexual Orientation Straight 08/09/2018 11 :51 AM EDT documented as of this encounter Last Filed Vital Signs Vital Sign Reading Time Taken Comments Blood Pressure 142/80 01/05/2024 1:07 PM EDT Pulse 80 01/05/2024 1:07 PM EDT Temperature 36.6 C (97.9 F) 01/05/2024 1:07 PM ED T Respiratory Rate - - Oxygen Saturation 98% 01/05/2024 1:07 PM EDT Inhaled Oxygen Concentration - - Weight 76.2 kg (167 lb 14.4 oz) 01/05/2024 1:07 PM EDT Height - - Body Mass Index 33.91 07/04/2023 11:21 AM EDT documented in this encounter Patient Instructions * Patient Instructions* Shannon Damon, Student - 01/05/2024 1:17 PM EDT Diabetes: Keeping Feet Healthy Inspect your feet every day for signs of a problem. Diabetes can damage nerves in your feet and cause neuropathy. This condition makes it hard for you to feel injuries or sore spots. Diabetes can also change blood flow, making it harder for small problems, like a blister, to heal properly. In fact, minor injuries can quickly become serious infections that send you to the hospital. Practice self-care to protect your feet and keep them healthy. Take Special Care Inspect your feet daily for problems such as redness, blisters, cracks, dry skin, or numbness. Use a mirror to see the bottoms of your feet. Or, ask for help. Manage your diabetes. Monitor and control your blood sugar. Take all your medications as prescribed. Avoid walking barefoot, even indoors. Wash your feet with warm water and mild soap. Dry well, especially between toes. Dont treat corns or calluses yourself. Talk to your doctor or insurance loss adjuster (a doctor who specializes in foot care) if you need assistance trimming your toenails. Use moisturizing cream or lotion if you have dry skin, but dont use it between toes. Dont use heating pads on your feet. If you have neuropathy, you could get a burn and not feel it. Stop smoking. Smoking restricts blood flow and can make it harder for wounds to heal. Have Regular Checkups Foot problems can develop quickly. So be sure to follow your healthcare teams schedule for regular checkups. During office visits, take off your shoes and socks as soon as you get in the exam room. Ask your healthcare provider to examine your feet for problems. This will make it easier to find and treat small skin irritations before they get worse. Regular checkups can also help keep track of the blood flow and feeling in your feet. If you have neuropathy, you may need to have checkups more often. Wear Proper Footwear Wearing proper footwear is very important. If areas of your feet have been damaged by too much pressure, your healthcare provider may recommend changing your footwear. In some cases, avoiding high heels or tight work boots may be all thats needed. Or, your healthcare provider may recommend special shoes or custom inserts. These help protect your feet and keep existing irritations from getting worse. If you need special footwear, ask your healthcare provider if you qualify for [employer] diabetic shoe program. Make Sure Shoes and Socks Fit Any pair of shoes--new or old--should feel comfortable as soon as you put them on. There shouldnt be any rubbing when you walk. Wear the right shoe for any activity. For instance, a running shoe is designed to keep your feet injury-free while jogging. Buy shoes at the end of the day, when your feet are larger. Make sure they provide support without feeling too loose. Make sure your socks fit, t oo. Wear soft, seamless, well-padded socks for activity. Cotton or microfiber socks are best to help to absorb sweat. To protect your feet, avoid shoes that are open-toed or open-heeled. If you have questions about what kinds of shoes and socks are best, talk to your healthcare team. Get Regular Exercise Regular exercise improves blood flow in your feet. It also increases foot strength and flexibility.Gentle exercises, like walking or riding a stationary bicycle, are best. You can also do special foot exercises. Just be sure to talk with your healthcare provider before starting any exercise program. Also mention if any exercise causes pain, redness, or other signs of foot problems. Note: If you have any kind of break in the skin of your foot or ankle, keep the area clean. Then call your doctor--especially if the area doesnt appear to be healing. [id number] [employer], [address] [place] [address], [place] [address]. All rights reserved. This information is not intended as a substitute for professional medical care. Always follow your healthcare professional's instructions. documented in this encounter Progress Notes * Shannon Damon Student - 01/05/2024 1:17 PM EDT Socks and Shoes Removed for Annual Diabetic Foot Screening RIGHT FOOT: No Reddened, Cracking, Or Open Areas Noted. RIGHT Dorsalis Pedis Pulse: Palpable RIGHT Posterior Tibial Pulse: Palpable RIGHT Monofilament:Patient reports feeling monofilament pressure on plantar surface of foot LEFT FOOT: No Reddened, Cracking or Open Areas Noted. LEFT Dorsalis Pedis Pulse: Palpable LEFT Posterior Tibial Pulse: Palpable LEFT Monofilament:Patient reports feeling monofilament pressure on plantar surface of foot Do you need diabetic shoes: No DM Foot Exam completed today. Provider aware. Trina Jon * Arti Gutierrez MD - 01/05/2024 1:06 PM EDT SUBJECTIVE: Yessenia Justice is a 72 year old female. 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 She has a Relion meter at home, has not been checking it regularly. Got a new blood pressure monitor at home Metformin was switched to extended release 4 tablets daily 2022 Labs show dehydration, slight increase in bicarb and positive anion gap, would not add Jardiance atthis time, will add glipizide 5mg, semaglutide 3 mg , call in 4 wks for next Rx if kermit well., discussed MTM roll, willing to be referred. Log book given. Goal FBS 100-120, 2 hour postprandial 140-160. --had sev N/V,diarrhea on semaglutide and was DC 12/26---has had multiple appointments with MTM, saw them today, metformin decreased from 2 bid to 2tablets in the morning due to diarrhea-explosive diarrhea at 8 pm, ct glipizide er 5 mg twice daily FBS 14-160, this am 118, pm <160--but high with bread, low at 66 if eats sm lunch No soda now, drinking water 32 oz only., no milk juice/tea, 1-2 c coffee in am 01/02/23---has had multiple appointments with MTM, saw them today, metformin decreased from 2 bid to 2 tablets in the morning due to diarrhea-explosive diarrhea at 8 pm, ct glipizide er 5 mg twice daily FBS 14-160, this am 118, pm <160--but high with bread, low at 66 if eats sm lunch No soda now, drinking water 32 oz only., no milk juice/tea, 1-2 c coffee in am ----bun 50--, K 5, will Dc lis/HCTZ 20/25mg, K 20mg and inc lis 40m , 2 wl labs and fu htn 01/18/2023---back on metformin 2 bid, no diarrhea. Home bp variable--home meter correlated 03/15/23, and home RD are at goal 07/04/2023>> since last visit started on Mounjaro 2.5 mg 04/06/2023, does increase to 5 mg for 2months in 05/05/2023 and further to 7.5 mg weekly 06/29/2023. Tolerating well, now has noticed that she is eating less, lost weight about 10 lb, had some episodes of low sugars but she was not eating well during those times, saw [facility] clinic today and will be seeing them in follow-up in 3 months. Fasting sugars now 96-108, postprandial sugars now 85-90 previously last month 120-130 Remains on metformin max dose glipizide XL 5 mg twice a day which may need to be decreased if has recurrent symptoms of hypoglycemia, A1c is improved. 01/05/2024--saw [facility] 10/27- Eye exam-Clare 10/14/22;11/09/23 Cataract surgery left 12/07/22, Rt 12/21/22. Foot exam-09/23/22.,12/27 Ma +12/26, MURRAY inhibitor maximized, repeat microalbumin positive , await nephrology follow-up07/27,ersists 12/27 On max murray inh, asa 81 mg Hypertension on lisinopril HCTZ 20/25 mg, potassium 20 mEq use twice a day, metoprolol 25 mg added 2022 and is tolerating well, heart rate is significantly improved. Saw [facility] 04/20/2018 EKG-Normal sinus rhythm at 89 beats per minute Poor R-wave progression across the anterior precordial leads Echo 04/04/2018-EF 55-59%, moderate aortic valve sclerosis 09/23/2022-EKG- ST at 112 bpm, inferior infarct is new, PACs new, anteroseptal infarct cited before 04/20/2018. Echo ordered was scheduled for December 06, will try to get an earlier date and also refer back to Cardiology Echo--09/28/22-EF 55 -59%,aortic valve is mildly calcified with partial fusion of the left and the non coronary aortic valve cusps, mild aortic stenosis and [id number] mitral regurgitation now present. Card f/u 11/08/22-mild aortic stenosis with partial fusion left and non coronary cusps, metoprolol succinate increased to 37.5 mg for heart rate and blood pressure control, echo in 18 months, fu 6 mths 01/02/23---bun 50--, K 5, will Dc lis/HCTZ 20/25mg, K 20mg and inc lis 40m , 2 wl labs and fu htn 01/16/23- bun/cr 37/0.9, K 4.3,--increase metoprolol to 50 mg [place] Vitamin-D is high at 75, stop the extra vitamin-D chewables. Continue calcium with D 1 daily and multivitamin daily 02/20/23- -labs-BUN remains high 44, normal creatinine 0.9, normal electrolytes except fluctuating bicarb level, sugar 159, calcium 9.6. CBC with the stable hemoglobin, WBC remains elevated 12.55 -ensure drinking 80-90 oz fluid/d --was dr Robledo o -continue lisinopril 40 mg daily, metoprolol XL 50 mg daily, start amlodipine 2.5 mg daily -check stool for Hemoccult 04/03/23--home blood pressure is 125 to 130 over 70-80, HR 70s. BUN 40, CR 1, bicarb 20, anion gap 16, ur SG 1.015, +wbc clumps, no blood/ketones.ma+, will refer to Nephrology for evaluation 04/06/23-CD <50% st laura. 04/07/23-renal US nml, 1 cm rt mid renal cyst. 04/08/23-FOBT neg 04/11/23 Lactate level is normal, BUN is slightly improved but sodium is low, awaiting note from Dr. Wayne who saw you 04/12/23. 05/27-Gracie--amb bp hi--increase amlodipine to 2.5 mg bid -likely to need diuretic but last serum sodium slightly low > recommend bmp, urine osms, serum osms rd urine sodium ;-3 day BP log -MT for HTN goal <130/80 06/27-home blood pressure reading 120/73, she did not bring her meter in today but will to Nephrology appointment on 07/13/202301/27-had Nephrology f/u 07/27--no chg done;Bp cuff validated in office and accurate . 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 Her anxiety remains stable. She has paper works getting ready for POA who will be her nephew 01/27-brings in LW--Full code, DNR if terminal, wishes to donate organs and body for research. Dyslipidemia on atorvastatin 40 mg daily fish oil daily Allergic rhinitis on Claritin daily and Flonase daily Mammogram negative-02/15/2022,Het DBT 02/16/2023. --andrew 02/20/24 DEXA scan 06/28/2022 -0.2 right forearm,-0.6 left femoral neck, low risk, repeat in 5 years-06/2027 History of left wrist fracture. Postmenopausal on ca+d, multivitamin, Ocuvite Colonoscopy-01/25/2021-6 mm polyp in the descending colon. sessile DC p--Nafisa-TAP--rpt 5 yrs -due 02/2026 EGD-01/25/2021 -gastritis on Protonix daily per ---now off med H/o left rotator cuff repair Had flu vac and moderna covid booster 12/05/23 Elevated WBC count, saw Hematology 02/24/2023-recommended repeat labs-03/31/23- CBC BL hi wbc, nml ESR,CRP 6 -- wbc 03/31/23--11.6,nml diff, will rpt in 12/27 12/27-bun 32,fbs 145, nml b12,alt,mag, lipids ex hdl45, alb/cr 145,TSH 1.8, neg thyrab, wbc 11.5 -is drinking a supplement which has 30 g of protein, also eats 1 egg and high- protein diet tries todrink at least 3 x 34 oz fluids per day-aim 65-75 gm/d, fluids 80-100 oz/d TSH Results: Lab Results Component Value Date/Time TSH - [facility] 2.91 01/03/2024 08:55 AM TSH - [facility] 3.42 09/24/2022 08:22 AM TSH - [facility] 3.24 02/23/2018 09:46 AM TSH - [facility] 2.50 01/14/2016 10:14 AM TSH - [facility] 4.17 11/29/2011 07:04 AM Hemoglobin AIC Results: Lab Results Component Value Date/Time HEMOGLOBIN A1C - [facility] 6.0 (H) 01/03/2024 08:55 AM HEMOGLOBIN A1C - [facility] 5.9 (H) 10/03/2023 08:35 AM HEMOGLOBIN A1C - [facility] 6.3 (H) 07/01/2023 09:36 AM HEMOGLOBIN A1C - [facility] 6.4 (H) 08/06/2018 08:26 AM HEMOGLOBIN A1C - [facility] 7.6 (H) 02/23/2018 09:46 AM HEMOGLOBIN A1C - [facility] 8.2 (H) 01/14/2016 10:14 AM Hemoglobin Results: Lab Results Component Value Date/Time HGB 13.5 01/03/2024 08:55 AM HGB 12.8 03/31/2023 10:26 AM HGB 12.8 02/17/2023 08:27 AM HGB 13.1 04/20/2011 03:54 PM HGB 13.9 03/21/2011 12:34 PM Component Latest Ref Rng 01/16/2023 02/17/2023 03/31/2023 04/11/2023 07/01/2023 01/03/2024 BUN 6 - 20 mg/dL 37 (H) 44 (H) 40 (H) 28 (H) 25 (H) 32 (H) Component Latest Ref Rng 01/16/2023 02/17/2023 03/31/2023 01/03/2024 WBC 4.00 - 10.80 K/uL 12.83 (H) 12.55 (H) 11.46 (H) 11.48 (H) Results for orders placed or performed in visit on 01/03/24 VITAMIN B12 Result Value Ref Range Vitamin B12 718 232 - 1,245 pg/mL ALT Result Value Ref Range ALT 18 10 - 35 U/L BASIC METABOLIC PANEL Result Value Ref Range BUN 32 (H) 6 - 20 mg/dL CREATININE 1.0 0.5 - 1.0 mg/dL EGFR 60 >=60 mL/min SODIUM 137 135 - 146 mmol/L POTASSIUM 4.7 3.5 - 5.1 mmol/L CHLORIDE 99 98 - 107 mmol/L CO2 24 22 - 32 mmol/L ANION GAP 14 7 - 15 mmol/L GLUCOSE 145 (H) 70 - 120 mg/dL CALCIUM 9.7 8.4 - 10.2 mg/dL LIPID PANEL WITH DIRECT LDL IF TG IS HIGH Result Value Ref Range Triglycerides 142 <=174 mg/dL Cholesterol 149 <200 mg/dL HDL Cholesterol 45 (L) >49 mg/dL Non-HDL Cholesterol 104 <=159 mg/dL LDL Cholesterol 76 <=129 mg/dL HEMOGLOBIN A1C Result Value Ref Range Hemoglobin A1C 6.0 (H) 4.0 - 5.6 % Estimated Average Glucose 126 (H) <126 mg/dL MAGNESIUM Result Value Ref Range Magnesium 1.8 1.5 - 2.6 mg/dL TSH WITH FREE T4 IF INDICATED Result Value Ref Range TSH 2.91 0.27 - 4.20 uIU/mL THYROID ANTIBODY AND TPO ANTIBODY Result Value Ref Range Thyroid Peroxidase Antibody 6.6 <34.0 IU/mL Thyroglobulin Antibody 13.0 <115.0 IU/mL CBC Result Value Ref Range WBC 11.48 (H) 4.00 - 10.80 K/uL RBC 4.39 3.85 - 5.15 M/uL HGB 13.5 12.0 - 15.3 g/dL HCT 39.3 36.0 - 45.2 % MCV 89.5 81.5 - 97.5 fL MCH 30.8 27.0 - 34.0 pg MCHC 34.4 32.0 - 36.0 g/dL RDW 13.3 11.5 - 15.5 % PLT 268 140 - 400 K/uL MPV 9.3 6.6 - 11.1 fL DIFFERENTIAL, AUTOMATED Result Value Ref Range WBC 11.48 (H) 4.00 - 10.80 K/uL Neutrophils % 59.1 40.0 - 75.0 % Lymphocytes % 32.7 18.0 - 42.0 % Monocytes % 4.6 1.0 - 11.0 % Eosinophils % 3.0 0.0 - 6.0 % Basophils % 0.6 0.0 - 2.0 % Absolute Neutrophils 6.79 1.80 - 7.70 K/uL Absolute Lymphocytes 3.75 1.00 - 4.80 K/ul Absolute Monocytes 0.53 0.00 - 1.10 K/uL Absolute Eosinophils 0.34 0.00 - 0.70 K/uL Absolute Basophils 0.07 0.00 - 0.20 K/uL ALBUMIN / CREATININE RATIO, URINE Result Value Ref Range Albumin, Random Urine 11.00 mg/dL Creatinine, Random Urine 74 mg/dL Albumin / Creatinine Ratio, Urine 149 (H) <30 mg/g Creat Patient Active Problem List Diagnosis Type 2 diabetes mellitus with hemoglobin A1c goal of less than 7.0% ([facility]) DYSLIPIDEMIA, GOAL LDL BELOW 100 HTN, goal below 130/80 Seasonal allergic rhinitis due to pollen Non-rheumatic aortic sclerosis Situational stress Microalbuminuria due to type 2 diabetes mellitus ([facility]) CKD (chronic kidney disease) stage 2, GFR 60-89 ml/min Nonrheumatic mitral valve regurgitation Current Outpatient Medications Medication Sig Dispense Refill ASPIRIN 81 MG PO CHEW One pill by mouth once a day with food 100 5 OCUVITE-LUTEIN PO CAPS 1 tab by mouth daily M-VIT PO TABS 1 tab by mouth daily Fish Oil 1200 MG Oral Capsule Take 1,200 mg by mouth in the morning. B Complex Vitamins Oral Capsule Take 1 Capsule by mouth in the morning. Loratadine 10 MG Oral Tablet Take 1 Tablet by mouth in the morning. 30 Tablet 11 Fiber Select Gummies Oral Tablet Chewable Take 1 Tablet by mouth in the morning. 5 g =2 gummies/d. 1 Tablet 0 ReliOn All-In-One Device Use as directed. 1 Each 0 Biotin 5000 MCG Oral Capsule Take 1,000 Capsules by mouth once. amLODIPine Besylate 2.5 MG Oral Tablet (Norvasc) Take 1 Tablet by mouth in the morning and 1 Tabletbefore bedtime. 180 Tablet 3 metFORMIN HCl ER 500 MG Oral Tablet Extended Release 24 Hour (Glucophage XR) Take 2 Tablets by mouth 2 times a day with morning and evening meals. 360 Tablet 3 Lisinopril 40 MG Oral Tablet TAKE 1 TABLET BY MOUTH EVERY DAY IN THE MORNING 90 Tablet 1 Mounjaro 7.5 MG/0.5ML Subcutaneous Solution Pen-injector (Tirzepatide) Inject 7.5 mg under the skinonce a week. 2 mL 11 busPIRone HCl 5 MG Oral Tablet (Buspar) TAKE 1 TABLET BY MOUTH IN THE MORNING AND BEFORE BEDTIME 180 Tablet 1 glipiZIDE ER 5 MG Oral Tablet Extended Release 24 Hour (Glucotrol XL) TAKE 1 TABLET BY MOUTH IN THEMORNING AND IN THE EVENING 180 Tablet 2 Metoprolol Succinate ER 50 MG Oral Tablet Extended Release 24 Hour (toPROL XL) TAKE 1 TABLET BY MOUTH EVERY DAY IN THE MORNING 90 Tablet 1 Atorvastatin Calcium 40 MG Oral Tablet (Lipitor) TAKE 1 TABLET BY MOUTH EVERY DAY IN THE MORNING 90Tablet 1 Fluticasone Propionate 50 MCG/ACT Nasal Suspension (Flonase) ADMINISTER 1 SPRAY INTO NOSTRIL DAILY.48 mL 0 No current facility-administered medications for this visit. Past Medical History: Diagnosis Date DM type 2, goal A1c below 7 Dyslipidemia, goal LDL below 160 HTN, goal below 140/90 Past Surgical History: Procedure Laterality Date DENTAL SURGERY PROCEDURE NEC REMOVAL OF TONSILS, AGE 14+ Bilateral 1980 REPAIR RUPTURED ROTATOR CUFF, ACUTE Left 02/04/2008 TOTAL ABD HYSTERECTOMY W/WO REMOVAL OF TUBE(S) 09/03/1994 Family History Problem Relation Name Age of Onset Diabetes Mother Heart Disorder Mother Heart Disorder Father at 52, [place] Social History Tobacco Use Smoking status: Never Smokeless tobacco: Never Vaping Use Vaping status: Never Used Substance Use Topics Alcohol use: Yes Comment: occassionally Drug use: No Review of patient's allergies indicates: Allergen Reactions Actos [Pioglitazone Hydrochloride] Gi upset Semaglutide Diarrhea and Nausea/vomiting OBJECTIVE: BP 142/80 | Pulse 80 | Temp 36.6 C (97.9 F) (Tympanic) | Wt 76.2 kg (167 lb 14.4 oz) | SpO2 98%| BMI 33.91 kg/m | BSA 1.78 m PHYSICAL EXAM: Home bp 124/74.; 80 General: alert, healthy, no distress, well nourished and well developed Head: Normocephalic, atraumatic Eye Exam: PERRLA, EOMI, Conjunctiva non-injected, sclera clear Ears: External ears normal, Canals clear, TM normal Nose: no mucosal erythema, no mucosal edema, no purulent discharge Oropharynx: faint erythema sites pnd, sl narrowing OP- no sx OSAS Neck: supple, fullness left SC area-chr from left rot cuff sg 1979. no bruits, thyroid normal size, non-tender, without nodularity Lymph: No palpable lymphadenopathy. Heart: Regular rhythm and rate, base 2/6 SM LLSB and no gallops Lungs: lungs clear to auscultation Abdomen: Soft, non-tender, normal bowel sounds, no masses or organomegaly, no bruits Truncal obesity Extremities: no edema, no clubbing, no cyanosis. Neuro Exam: alert & oriented x 3 with fluent speech, no focal motor/sensory deficits, gait normal Skin: skin color, texture, turgor are normal, no rashes ASSESSMENT/PLAN: Type 2 diabetes mellitus with hemoglobin A1c goal of less than 7.0% ([facility]) (Primary) - ALBUMIN / CREATININE RATIO, URINE; Future; Expected date: 07/04/2024 - HEMOGLOBIN A1C; Future; Expected date: 07/04/2024 - LDL CHOLESTEROL (DIRECT MEASURE); Future; Expected date: 07/04/2024 - BASIC METABOLIC PANEL; Future; Expected date: 07/04/2024 - HEPATIC FUNCTION PANEL; Future; Expected date: 07/04/2024 Microalbuminuria due to type 2 diabetes mellitus (HCC) - ALBUMIN / CREATININE RATIO, URINE; Future; Expected date: 07/04/2024 - URINALYSIS, REFLEX TO MICROSCOPIC; Future; Expected date: 07/04/2024 HTN, goal below 130/80 - BASIC METABOLIC PANEL; Future; Expected date: 07/04/2024 - URINALYSIS, REFLEX TO MICROSCOPIC; Future; Expected date: 07/04/2024 DYSLIPIDEMIA, GOAL LDL BELOW 100 - LDL CHOLESTEROL (DIRECT MEASURE); Future; Expected date: 07/04/2024 - HEPATIC FUNCTION PANEL; Future; Expected date: 07/04/2024 CKD (chronic kidney disease) stage 2, GFR 60-89 ml/min - BASIC METABOLIC PANEL; Future; Expected date: 07/04/2024 - URINALYSIS, REFLEX TO MICROSCOPIC; Future; Expected date: 07/04/2024 Nonrheumatic mitral valve regurgitation Non-rheumatic aortic sclerosis Situational stress DM type 2 nursing care encounter (HCC) - DIABETES FOOT EXAM Seasonal allergic rhinitis due to pollen Elevated BUN - ALBUMIN / CREATININE RATIO, URINE; Future; Expected date: 07/04/2024 - URINALYSIS, REFLEX TO MICROSCOPIC; Future; Expected date: 07/04/2024 White coat syndrome with diagnosis of hypertension Hair thinning--Improved on biotin --echo 05/28 before card appt no edema/edmond/sob Has MTM appt today, did not kermit 10 mg mounjaro,A1c improved Home BP lower--chg lisinopril to pm, send BP log to me and nephro 2-3 wks Log protein intake/d aim 65-75 gm/d, fluids 80-100 oz/d 40 min total time spent with patient, time spent reviewing subspecialty notes, diagnostic studies done, follow-up orders/medication refills,over 1/2 time spent in counseling, coordinating care. Follow Up: Return in about 6 months (around 07/04/2024), or if symptoms worsen or fail to improve, for Return with Physician, Labs 2-5 Days Before Next Visit. | For: Return with Physician, Labs 2-5 Days Before Next Visit (This note was completed using the dictation program Fluency Direct. As such, there may be misspellings, word substitutions, or other variations that should not change the essence of the clinical content of this encounter note. If there is need for further clarification, please direct questions to the provider listed above.) Patient and / caregiver verbalize understanding of above instructions and agrees with plan of care. Arti Gutierrez MD 01/05/2024 documented in this encounter Nursing Notes * Shannon Damon Student - 01/05/2024 1:16 PM EDT Chief Complaint Patient presents with Follow Up * Shannon Damon Student - 01/05/2024 1:06 PM EDT Pt here for follow up. No concerns so far but would like a physical if possible documented in this encounter Plan of Treatment Upcoming Encounters Date Type Department Care Team (Late st Contact Info) Description 02/20/2024 9:15 AM EST [facility] [address] [facility] [place] [id number] 03/20/2024 1:00 PM EST Cardiac Studies Cardiac Studies, [facility] 132 [facility] [place] [id number] 04/02/2024 8:30 AM EST Office Visit Cardiology, [facility] 132 [facility] [place] [id number] Tye Garcia MD 132 [facility] [place] [address] 04/08/2024 10:30 AM EST Office Visit Pharmacy, [facility] 200 [facility] [place] [address] Pharmacist1, [facility] 200 [facility] [place] [address] 07/12/2024 10:20 AM EDT Office Visit General Internal Medicine [facility] [place] 200 [facility] [place] [address] Arti Gutierrez MD 200 [facility] [place], [place] [address] Scheduled Orders Name Type Priority Associated Diagnoses Orde r Schedule ALBUMIN / CREATININE RATIO, URINE Lab Routine Type 2 diabetes mellitus with hemoglobin A1c goal of less than 7.0% (HCC) Microalbuminuria due to type 2 diabetes mellitus (HCC) Elevated BUN Expected: 07/04/2024 (Approximate), Expires: 01/04/2025 HEMOGLOBIN A1C Lab Routine Type 2 diabetes mellitus with hemoglobin A1c goal of less than 7.0% (HCC) Expected: 07/04/2024 (Approximate), Expires: 01/04/2025 LDL CHOLESTEROL (DIRECT MEASURE) Lab Routine Type 2 diabetes mellitus with hemoglobin A1c goal of less than 7.0% ([facility]) DYSLIPIDEMIA, GOAL LDL BELOW 100 Expected: 07/04/2024 (Approximate), Expires: 01/04/2025 BASIC METABOLIC PANEL Lab Routine Type 2 diabetes mellitus with hemoglobin A1c goal of less than 7.0% ([facility]) HTN, goal below 130/80 CKD (chronic kidney disease) stage 2, GFR 60-89 ml/min Expected: 07/04/2024 (Approximate), Expires: 01/04/2025 HEPATIC FUNCTION PANEL Lab Routine Type 2 diabetes mellitus with hemoglobin A1c goal of less than 7.0% ([facility]) DYSLIPIDEMIA, GOAL LDL BELOW 100 Expected: 07/04/2024 (Approximate), Expires: 01/04/2025 URINALYSIS, REFLEX TO MICROSCOPIC Lab Routine Microalbuminuria due to type 2 diabetes mellitus (HCC) HTN, goal below 130/80 CKD (chronic kidney disease) stage 2, GFR 60-89 ml/min Elevated BUN Expected: 07/04/2024, Expires: 01/04/2025 Health Maintenance Due Date Last Done Comments Cologuard 1997 Sigmoidoscopy 1997 Adult Wellness Visit 2018 Depression Screening 09/24/2023 2022 Mammogram 02/17/2024 02/16/2023, 02/03, 01/11/2021, Additional history exists Fecal Occult Blood Test 04/08/2024 04/08/2023 HbA1c 07/03/2024 01/03/2024, 09/05, 07/01/2023, Additional history exists Diabetic Eye Exam 11/08/2024 11/09/2023, , 08/29/2018, Additional history exists Albumin/Creatinine Ratio 01/02/2025 024, [...] Hepatitis B Vaccine Completed 07/04/2023, 02/20/2023, 01/18/2023 COVID-19 Vaccine Completed 12/05/2023, , 12/15/2021, Additional history exists Influenza Vaccine (FLU shot) Completed 03/2023, 12/28/2022, 11/15/2021, Additional history exists HPV (Gardasil) Vaccine Aged Out No lo nger eligible based on patient's age to complete this topic MENINGOCOCCAL (MENACTRA/MENVEO) Aged Out No longer eligible based on patient's age to complete this topic documented as of this encounter Medical Devices Not on filedocumented as of this encounter Visit Diagnoses Diagnosis Type 2 diabetes mellitus with hemoglobin A1c goal of less than 7.0% (HCC)- Primary Microalbuminuria due to type 2 diabetes mellitus (HCC) HTN, goal below 130/80 Unspecified essential hypertension DYSLIPIDEMIA, GOAL LDL BELOW 100 Other and unspecified hyperlipidemia CKD (chronic kidney disease) stage 2, GFR 60-89 ml/min Chronic kidney disease, Stage II (mild) Nonrheumatic mitral valve regurgitation Non-rheumatic aortic sclerosis Atherosclerosis of aorta Situational stress Other psychological or physical stress, not elsewhere classified DM type 2 nursing care encounter (HCC) Type II or unspecified type diabetes mellitus without mention of complication, not stated as uncontrolled Seasonal allergic rhinitis due to pollen Elevated BUN Other abnormal blood chemistry White coat syndrome with diagnosis of hypertension documented in this encounter Advance Directives Documents on File Type Date Recorded Patient Court Recorder Expl anation Advance Directives and Living Will 01/24/2024 signed on 06/29/2023 Care Teams Denture Packer Relationship Specialty Start Date End Date Arti Gutierrez MD 200 [facility] [place] [address] PCP - General Internal Medicine 09/23/22 documented as of this encounter"
--- OUTSIDE RECORDS SUMMARY | 2024-02-05 19:45 | External Medical Summary | Summary of Care ---
Author Name Unknown Organization [facility] Address [address] [place] [address] Phone [phone] Care Team Providers Care Medical Laboratory Technologist Name Role Phone Arti Gutierrez MD Primary Care Provider [phone] Reason for Visit * Reason Comments eRx-Medication Refill Encounter Details Date Type Department Care Team (Late st Contact Info) Description 01/22/2024 Refill General Internal Medicine [facility] [place] 200 [facility] [place] [address] Bridget Smith MD 200 [facility] [place] [address] Situational stress Allergies Active Allergy Reactions Criticality Noted Date Comments Pioglitazone Hydrochloride 9 Gi upset Semaglutide Diarrhea,Nausea/vomiting 11/04/2022 documented as of this encounter (statuses as of 01/23/2024) Medications ASPIRIN 81 MG PO CHEWIndications:D M type 2, not at goal (HCC),HTN, goal below 140/90 One pill by mouth once a day with food 100 5 9 Active OCUVITE-LUTEIN PO CAPS 1 tab by mouth daily Active M-VIT PO TABS 1 tab by mouth daily Active Fluticasone Propionate 50 MCG/ACT Nasal Suspension (Flonase) ADMINISTER 1 SPRAY INTO NOSTRIL DAILY. 48 mL 1 Active Fish Oil 1200 MG Oral Capsule Take 1,200 mg by mouth in the morning. Active B Complex Vitamins Oral Capsule Take 1 Capsule by mouth in the morning. Active Fiber Select Gummies Oral Tablet Chewable Take 1 Tablet by mouth in the morning. 5 g =2 gummies/d. 1 Tablet 3 Active ReliOn All-In-One DeviceIndications :Uncontrolled type 2 diabetes mellitus with hyperglycemia (HCC) Use as directed. 1 Each 3 Active Biotin 5000 MCG Oral Capsule Take 1,000 Capsules by mouth once. Active amLODIPine Besylate 2.5 MG Oral Tablet (Norvasc)Indicati ons:HTN, goal below 140/80,Microalbum inuria due to type 2 diabetes mellitus (HCC),Nonrheumati c mitral valve regurgitation,Non rheumatic aortic valve stenosis Take 1 Tablet by mouth in the morning and 1 Tablet before bedtime. 180 Tablet 3 4 Active metFORMIN HCl ER 500 MG Oral Tablet Extended Release 24 Hour (Glucophage XR)Indications:Ty pe 2 diabetes mellitus with hemoglobin A1c goal of less than 7.0% (HCC) Take 2 Tablets by mouth 2 times a day with morning and evening meals. 360 Tablet 3 4 Active Lisinopril 40 MG Oral TabletIndications :HTN, goal below 140/80,Type 2 diabetes mellitus with hemoglobin A1c goal of less than 7.0% (HCC),Microalbumi myesha due to type 2 diabetes mellitus (HCC),Dehydration TAKE 1 TABLET BY MOUTH EVERY DAY IN THE MORNING 90 Tablet 1 4 Active busPIRone HCl 5 MG Oral Tablet (Buspar)Indicatio ns:Situational stress TAKE 1 TABLET BY MOUTH IN THE MORNING AND BEFORE BEDTIME 180 Tablet 1 4 Active glipiZIDE ER 5 MG Oral Tablet Extended Release 24 Hour (Glucotrol XL)Indications:Un controlled type 2 diabetes mellitus with hyperglycemia (HCC) TAKE 1 TABLET BY MOUTH IN THE MORNING AND IN THE EVENING 180 Tablet 2 4 Active Metoprolol Succinate ER 50 MG Oral Tablet Extended Release 24 Hour (toPROL XL)Indications:HT N, goal below 140/80,Non-rheuma tic aortic sclerosis,Type 2 diabetes mellitus with hemoglobin A1c goal of less than 7.0% (HCC),Nonrheumati c mitral valve regurgitation,Non rheumatic aortic valve stenosis TAKE 1 TABLET BY MOUTH EVERY DAY IN THE MORNING 90 Tablet 1 4 Active Atorvastatin Calcium 40 MG Oral Tablet (Lipitor)Indicati ons:Dyslipidemia, goal LDL below 100 TAKE 1 TABLET BY MOUTH EVERY DAY IN THE MORNING 90 Tablet 1 4 Active Cetirizine HCl 10 MG Oral Tablet (ZyrTEC Allergy)Indicatio ns:Seasonal allergic rhinitis due to pollen Take 1 Tablet by mouth in the morning. 4 Active Mounjaro 10 MG/0.5ML Subcutaneous Solution Auto-injector (Tirzepatide) Inject 10 mg under the skin once a week. 2 mL 11 01/06/2024 12:48 PM EDT 4 01/05/20 25 Active documented as of this encounter (statuses as of 01/23/2024) Active Problems Problem Noted Date Diagnosed Date [...] as of this encounter (statuses as of 01/23/2024) Resolved Problems Problem Noted Date Diagnosed Date [...] as of this encounter (statuses as of 01/23/2024) Immunizations Name Administration Dates Next Due COVID-19 [...] AM EDT documented as of this encounter Miscellaneous Notes * Telephone Encounter - Armando Beltran [facility] - 01/23/2024 2:41 PM ESTRefused Prescriptions: Disp Refills busPIRone HCl 5 MG Oral Tablet (Buspar) 180 Ta*1 Sig: TAKE 1 TABLET BY MOUTH IN THE MORNING AND BEFORE BEDTIMERefused By: Karla BELTRAN for Refusal: Duplicate RequestReason for Refusal Comment: 6 months supply sent 10/11/23 documented in this encounter Plan of Treatment Upcoming Encounters Date Type Department Care Team (Late st Contact Info) Description 02/20/2024 9:15 AM EST Imaging Radiology [facility]st [facility] [place] [address] [facility] [place] [id number] 03/20/2024 1:00 PM EST Cardiac Studies Cardiac Studies, [facility] [address] [facility] [place] [id number] 04/02/2024 8:30 AM EST Office Visit Cardiology, [facility] [address] [facility] [place] [id number] Tye Garcia MD 132 [facility] [place] [id number] 04/08/2024 10:30 AM EST Office Visit Pharmacy, [facility] 200 [facility] [place] [address] Pharmacist1, [facility] 200 [facility] [place] [address] 07/12/2024 10:20 AM EDT Office Visit General Internal Medicine [facility] 200 [facility] [place] [address] Arti Gutierrez MD 200 [facility] [place] [address] Health Maintenance Due Date Last Done Comments [...] as of this encounter Visit Diagnoses Diagnosis Situational stress Other psychological or physical stress, not elsewhere classified documented in this encounter Care Teams Medical Laboratory Technologist Relationship Specialty Start Date End Date Arti Gutierrez MD 200 [facility] [place] [address] PCP - General Internal Medicine 09/23/22 documented as of this encounter
--- OUTSIDE RECORDS SUMMARY | 2024-02-05 19:46 | External Medical Summary | Summary of Care ---
Author Name Unknown Organization [facility] Address [address] [place] [address] Phone [phone] Care Team Providers Care Implementation Engineer Name Role Phone Navya Gutierrez MD Primary Care Provider Reason for Visit * Reason Comments eRx-Medication Refill Encounter Details Date Type Department Care Team (Late st Contact Info) Description 10/09/2023 Refill General Internal Medicine [facility] 200 [facility] [place] [address] Navya Gutierrez MD 200 [place] [address] Situational stress; Uncontrolled type 2 diabetes mellitus with hyperglycemia (HCC) Allergies Active Allergy Reactions Criticality Noted Date Comments Pioglitazone Hydrochloride 9 Gi upset Semaglutide Diarrhea,Nausea/vomiting 11/04/2022 documented as of this encounter (statuses as of 10/11/2023) Medications Medication Sig Dispensed Refills Start Date [...] gummies/d. 1 Tablet 2022 Active ReliOn All-In-One DeviceIndications: Uncontrolled type 2 diabetes mellitus with hyperglycemia (HCC) Use as directed. 1 Each 09/27/2022 Active Atorvastatin Calcium 40 MG Oral Tablet (Lipitor)Indicatio ns:Dyslipidemia, goal LDL below 100 Take 1 Tablet by mouth in the morning. 90 Tablet 3 11/19/2022 Active Biotin 5000 MCG Oral Capsule Take 1,000 Capsules by mouth once. Active amLODIPine Besylate 2.5 MG Oral Tablet (Norvasc)Indicatio ns:HTN, goal below 140/80,Microalbumi myesha due to type 2 diabetes mellitus (HCC),Nonrheumatic mitral valve regurgitation,Nonr heumatic aortic valve stenosis Take 1 Tablet by mouth in the morning and 1 Tablet before bedtime. 180 Tablet 3 05/09/2023 Active Metoprolol Succinate ER 50 MG Oral Tablet Extended Release 24 Hour (toPROL XL)Indications:HTN , goal below 140/80,Non-rheumat ic aortic sclerosis,Type 2 diabetes mellitus with hemoglobin A1c goal of less than 7.0% (HCC),Nonrheumatic mitral valve regurgitation,Nonr heumatic aortic valve stenosis Take 1 Tablet by mouth in the morning. 90 Tablet 1 05/25/2023 Active metFORMIN HCl ER 500 MG Oral Tablet Extended Release 24 Hour (Glucophage XR)Indications:Typ e 2 diabetes mellitus with hemoglobin A1c goal of less than 7.0% (HCC) Take 2 Tablets by mouth 2 times a day with morning and evening meals. 360 Tablet 3 07/05/2023 Active Lisinopril 40 MG Oral TabletIndications: HTN, goal below 140/80,Type 2 diabetes mellitus with hemoglobin A1c goal of less than 7.0% (HCC),Microalbumin uria due to type 2 diabetes mellitus (HCC),Dehydration TAKE 1 TABLET BY MOUTH EVERY DAY IN THE MORNING 90 Tablet 1 08/28/2023 Active Mounjaro 7.5 MG/0.5ML Subcutaneous Solution Pen-injector (Tirzepatide)Indic ations:Type 2 diabetes mellitus with hemoglobin A1c goal of less than 7.0% (HCC) Inject 7.5 mg under the skin once a week. 2 mL 11 09/19/2023 09/19/19 25 Active busPIRone HCl 5 MG Oral Tablet (Buspar)Indication s:Situational stress TAKE 1 TABLET BY MOUTH IN THE MORNING AND BEFORE BEDTIME 180 Tablet 1 10/11/2023 Active glipiZIDE ER 5 MG Oral Tablet Extended Release 24 Hour (Glucotrol XL)Indications:Unc ontrolled type 2 diabetes mellitus with hyperglycemia (HCC) TAKE 1 TABLET BY MOUTH IN THE MORNING AND IN THE EVENING 180 Tablet 2 10/11/2023 Active glipiZIDE ER 5 MG Oral Tablet Extended Release 24 Hour (glipiZIDE XL)Indications:Unc ontrolled type 2 diabetes mellitus with hyperglycemia (HCC) Take 1 Tablet by mouth in the morning and 1 Tablet in the evening. 180 Tablet 3 11/09/2022 10/11/19 24 Discontinued busPIRone HCl 5 MG Oral Tablet (Buspar)Indication s:Situational stress Take 1 Tablet by mouth in the morning and 1 Tablet before bedtime. 180 Tablet 1 04/21/2023 10/11/19 24 Discontinued documented as of this encounter (statuses as of 10/11/2023) Active Problems Problem Noted Date Diagnosed Date [...] as of this encounter (statuses as of 10/11/2023) Resolved Problems Problem Noted Date Diagnosed Date [...] as of this encounter (statuses as of 10/11/2023) Immunizations Name Administration Dates Next Due COVID-19 [...] 65+ Yrs, IM (FLUAD) 11/15/2021,11/23/2020,11/28/2019 Seasonal Influenza Virus Vac cine, Unspecified Formulation 11/28/2019,11/05/2018 Seasonal Influenza, PF, 6 M & above, IM , (FluLaval or Fluzone) 11/30/2017,12/16/2016 Seasonal Influenza, Quadriva lent Hd (Fluzone Hd) 12/28/2022 Seasonal Influenza, Quadriva lent, No Preserve, IM 12/09/2015 12/08/2016 Seasonal Influenza, Split, I IV3, With Preserve, Inj 11/17/2014,12/26/2013,11/19/2012,04/2011,11/26/2010,11/23/2009,12/05/19 09,12/02/2007 Seasonal Influenza, Trivalen t, Adjuvanted, 65+ yrs 10/31/2018 TD - Tetanus/Diptheria (ADULT) 04/13/2018 TDAP, [...] on file documented as of this encounter Miscellaneous Notes * Telephone Encounter - Bridget Smith MD - 10/11/2023 7:53 AM EDTSigned Prescriptions: Disp Refills busPIRone HCl 5 MG Oral Tablet (Buspar) 180 Ta*1 Sig: TAKE 1 TABLET BY MOUTH IN THE MORNING AND BEFORE BEDTIME Authorizing Provider: BRIDGET SMITH glipiZIDE ER 5 MG Oral Tablet Extended Rel*180 Ta*2 Sig: TAKE 1 TABLET BY MOUTH IN THE MORNING AND IN THE EVENING Authorizing Provider: NAVYA GUTIERREZ Ordering User : ROSEMARIE PIERCE Refused Prescriptions: Disp Refills busPIRone HCl 10 MG Oral Tablet (Buspar) 60 Tab*2 Sig: TAKE 0.5 TABLETS BY MOUTH IN THE MORNING AND 0.5 TABLETS BEFORE BEDTIME. IF NOT BETTER IN 2 DAYS INC TO 10MG TWICE DAILY. DO NOT START BEFORE SEPTEMBER 25, 2022. Refused By: ROSEMARIE PIERCE Reason for Refusal: Course of treatment complete< BR> * Telephone Encounter - Rosemarie Pierce [facility] - 10/11/2023 7:35 AM EDTPending Prescriptions: Disp Refills busPIRone HCl 5 MG Oral Tablet (Buspar) 180 Ta*1 Sig: TAKE 1 TABLET BY MOUTH IN THE MORNING AND BEFORE BEDTIME Signed Prescriptions: Disp Refills glipiZIDE ER 5 MG Oral Tablet Extended Rel*180 Ta*2 Sig: TAKE 1 TABLET BY MOUTH IN THE MORNING AND IN THE EVENING Authorizing Provider: BARBARA GUTIERREZ Ordering User: ROSEMARIE PIERCE Refused Prescriptions: Disp Refills busPIRone HCl 10 MG Oral Tablet (Buspar) 60 Tab*2 Sig: TAKE 0.5 TABLETS BY MOUTH IN THE MORNING AND 0.5 TABLETS BEFORE BEDTIME. IF NOT BETTER IN 2 DAYS INC TO 10MG TWICE DAILY. DO NOT START BEFORE SEPTEMBER 25, 2022. Refused By: ROSEMARIE PIERCE Reason for Refusal: Course of treatment complete * Telephone Encounter - Rosemarie Pierce RPh - 10/11/2023 7:35 AM EDT [facility] is currently not authorized to approve refills for the pended medication(s) per refill protocol. Please approve if appropriate. Thank you, Rosemarie Pierce josafat Clinical Pharmacist [facility]) 10/11/23 7:35 AM [phone] * Telephone Encounter - Rosemarie Pierce RPh - 10/11/2023 7:34 AM EDT Did you pend patient's preferred pharmacy and medication before forwarding?yes Pharmacy: [id number] [address] [place] [address] Pending Prescriptions: Disp Refills busPIRone HCl 5 MG Oral Tablet (Buspar) [*180 Ta*1 Sig: TAKE 1 TABLET BY MOUTH IN THE MORNING AND BEFORE BEDTIME Signed Prescriptions: Disp Refills glipiZIDE ER 5 MG Oral Tablet Extended Rel*180 Ta*2 Sig: TAKE 1 TABLET BY MOUTH IN THE MORNING AND IN THE EVENING Authorizing Provider: NAVYA GUTIERREZ Ordering User: ROSEMARIE PIERCE Refused Prescriptions: Disp Refills busPIRone HCl 10 MG Oral Tablet (Buspar) 60 Tab*2 Sig: TAKE 0.5 TABLETS BY MOUTH IN THE MORNING AND 0.5 TABLETS BEFORE BEDTIME. IF NOT BETTER IN 2 DAYS INC TO 10MG TWICE DAILY. DO NOT START BEFORE SEPTEMBER 25, 2022. Refused By: ROSEMARIE PIERCE Reason for Refusal: Course of treatment complete Last Visit: 07/04/2023 (in office), Visit date not found (telemedicine) Next Visit: 01/05/2024 If no future appointments scheduled, and last appointment is greater than a year ago, please schedule patient for a follow-up appointment Last date the medication was ordered: 04/21/2023 Is this request for a controlled substance?No Urine Drug Screen:No results found for this or any previous visit. Patient Phone Numbers [employer] [phone] Labs: Lab Results Component Value Date/Time CREAT 1.0 07/01/2023 09:36 AM CREAT 0.9 08/06/2018 08:26 AM POTASSIUM 5.0 07/01/2023 09:36 AM POTASSIUM 4.2 08/06/2018 08:26 AM TSH 3.42 09/24/2022 08:22 AM TSH 3.24 02/23/2018 09:46 AM LDLCALC 81 12/28/2022 08:22 AM LDLCALC 60 08/06/2018 08:26 AM LDLDIRECT 77 03/31/2023 10:26 AM LDLDIRECT NOT APPLICABLE 08/06/2018 08:26 AM LDLDIRECT 96 05/15/2014 07:01 AM ALT 25 03/31/2023 10:26 AM ALT 23 08/06/2018 08:26 AM HGBA1C 5.9 (H) 10/03/2023 08:35 AM HGBA1C 6.4 (H) 08/06/2018 08:26 AM documented in this encounter Plan of Treatment Upcoming Encounters Date Type Department Care Team (Late st Contact Info) Description 01/05/2024 1:00 PM EDT Office Visit General Internal Medicine [facility] 200 [facility] [place] [address] Navya Gutierrez MD 200 [facility] [place] [address] 01/05/2024 1:40 PM EDT Office Visit Pharmacy, [facility] 200 [facility] [place] [address] Pharmacist1, [facility] 200 [facility] [place] [address] 02/20/2024 9:15 AM EST Imaging Radiology [address], [place] 132 [facility] [place] [address] Health Maintenance Due Date Last Done Comments Cologuard 1997 Sigmoidoscopy 1997 Adult Wellness Visit 2018 COVID-19 Vaccine ( season) 2023 12/28/2022, 12/15/2021, 06/10/2021, Additional history exists Diabetic Eye Exam 08/09/2023 08/08/2022, , 01/12/2016, Additional history exists Depression Screening 09/24/2023 2022 Diabetic Foot Exam 09/24/2023 2022, 0 03/09/2018, 01/14/2016, Additional history exists B-12 09/25/2023 09/24/2022, 03/09/2018 Influenza Vaccine (FLU shot) (#1) 2023 12/28/2022, 11/15/2021, 11/23/2020, Additional history exists Mammogram 02/17/2024 02/16/2023, 02/03, 01/11/2021, Additional history exists HbA1c 04/04/2024 10/03/2023, 06/05, 03/31/2023, Additional history exists Fecal Occult Blood Test 04/08/2024 04/08/2023 Albumin/Creatinine Ratio 06/30/2024 024, 03/31/2023, 12/28/2022, Additional history exists GFR 06/30/2024 07/01/2023, 02/0 08/2023, 03/31/2023, Additional history exists Lipid Panel 03/31/2028 03/31/2023, 12/05, 09/24/2022, Additional history exists DTaP,Tdap,and Td Vaccines (4 - Td or Tdap) 04/13/2028 [...] psychological or physical stress, not elsewhere classified Uncontrolled type 2 diabetes mellitus with hyperglycemia (HCC) documented in this encounter Care Teams Implementation Engineer Relationship Specialty Start Date End Date Navya Gutierrez MD 200 [facility] [place] [address] PCP - General Internal Medicine 09/23/22 documented as of this encounter
--- OUTSIDE RECORDS SUMMARY | 2024-02-05 19:46 | External Medical Summary | Summary of Care ---
Author Name Unknown Organization [facility] Address [address] [place] [address] Phone [phone] Care Team Providers Care Primer Inserting Machine Operator Name Role Phone Arti Gutierrez MD Primary Care Provider [phone] Reason for Visit * Reason Comments eRx-Medication Refill Encounter Details Date Type Department Care Team (Late st Contact Info) Description 11/22/2023 Refill General Internal Medicine [facility] 200 [facility] [place] [address] Arti Gutierrez MD 200 [place] [address] Dyslipidemia, goal LDL below 100 Allergies Active Allergy Reactions Criticality Noted Date Comments Pioglitazone Hydrochloride 9 Gi upset Semaglutide Diarrhea,Nausea/vomiting 11/04/2022 documented as of this encounter (statuses as of 11/23/2023) Medications Medication Sig Dispensed Refills Start Date [...] mitral valve regurgitation,Nonr heumatic aortic valve stenosis TAKE 1 TABLET BY MOUTH EVERY DAY IN THE MORNING 90 Tablet 1 11/13/2023 Active Atorvastatin Calcium 40 MG Oral Tablet (Lipitor)Indicatio ns:Dyslipidemia, goal LDL below 100 TAKE 1 TABLET BY MOUTH EVERY DAY IN THE MORNING 90 Tablet 1 11/23/2023 Active Atorvastatin Calcium 40 MG Oral Tablet (Lipitor)Indicatio ns:Dyslipidemia, goal LDL below 100 Take 1 Tablet by mouth in the morning. 90 Tablet 3 11/19/2022 11/23/19 24 Discontinued documented as of this encounter (statuses as of 11/23/2023) Active Problems Problem Noted Date Diagnosed Date [...] as of this encounter (statuses as of 11/23/2023) Resolved Problems Problem Noted Date Diagnosed Date [...] 02/12/2009 Overview: Per Lipid Taxonomy. Status asthmaticus 06/24/201 0 Status asthmaticus 0 Dyslipidemia, goal LDL [...] as of this encounter (statuses as of 11/23/2023) Immunizations Name Administration Dates Next Due COVID-19 [...] IM 12/09/2015 12/08/2016 Seasonal Influenza, Trivalen t, (IIV3), with Preserv, (Fluzone) 11/17/2014,12/26/2013,11/19/2012,04/2011,11/26/2010,11/23/2009,12/05/19 09,12/02/2007 Seasonal Influenza, Trivalen t, Adjuvanted, 65+ YRS, [...] encounter Miscellaneous Notes * Telephone Encounter - Justine Vyas [facility] - 11/23/2023 10:46 AM EDTSigned Prescriptions: Disp Refills Atorvastatin Calcium 40 MG Oral Tablet (Li*90 Tab*1 Sig: TAKE 1 TABLET BY MOUTH EVERY DAY IN THE MORNINGAuthorizing Provider: Sanjeev GUTIERREZ User: JUSTINE VYAS documented in this encounter Plan of Treatment Upcoming Encounters Date Type Department Care Team (Late st Contact Info) Description 01/05/2024 1:00 PM EDT Office Visit General Internal Medicine [facility] [address] [place] [address] Arti Gutierrez MD [address] [place] [address] 01/05/2024 1:40 PM EDT Office Visit Pharmacy, [facility] [place] [address] [place] [address] [address] Pharmacist1, [facility] [address] [place] [address] 02/20/2024 9:15 AM EST Imaging Radiology [address] 132 [facility] [place] [address] 05/09/2024 11:00 AM EST Cardiac Studies Cardiac Studies, [facility] [address] [place] [address] 06/03/2024 8:30 AM EDT Office Visit Cardiology, [facility] [address] [place] [address] Tye Garcia MD [address] [place] [address] Health Maintenance Due Date Last Done Comments [...] as of this encounter Visit Diagnoses Diagnosis Dyslipidemia, goal LDL below 100 Other and unspecified hyperlipidemia documented in this encounter Care Teams Primer Inserting Machine Operator Relationship Specialty Start Date End Date Arti Gutierrez MD [address] [place] [address] PCP - General Internal Medicine 09/23/22 documented as of this encounter
--- OUTSIDE RECORDS SUMMARY | 2024-02-05 19:46 | External Medical Summary | Summary of Care ---
Author Name Unknown Organization [facility] Address [address] [place] [address] Phone [phone] Care Team Providers Care Merchandising Execution Manager Name Role Phone Arti Gutierrez MD Primary Care Provider [phone] Reason for Visit * Reason Comments eRx-Medication Refill Encounter Details Date Type Department Care Team (Late st Contact Info) Description 08/13/2023 Refill General Internal Medicine [facility] 200 [place] [address] Arti Gutierrez MD 200 [place] [address] Situational stress Allergies Active Allergy Reactions Criticality Noted Date Comments Pioglitazone Hydrochloride 9 Gi upset Semaglutide Diarrhea,Nausea/vomiting 11/04/2022 documented as of this encounter (statuses as of 08/21/2023) Medications Medication Sig Dispensed Refills Start Date [...] Use as directed. 1 Each 09/27/2022 Active glipiZIDE ER 5 MG Oral Tablet Extended Release 24 Hour (glipiZIDE XL)Indications:Uncon trolled type 2 diabetes mellitus with hyperglycemia (HCC) Take 1 Tablet by mouth in the morning and 1 Tablet in the evening. 180 Tablet 3 11/09/2022 Active Atorvastatin Calcium 40 MG Oral Tablet (Lipitor)Indications :Dyslipidemia, goal LDL below 100 Take 1 Tablet by mouth in the morning. 90 Tablet 3 11/19/2022 Active Biotin 5000 MCG Oral Capsule Take 1,000 Capsules by mouth once. Active busPIRone HCl 5 MG Oral Tablet (Buspar)Indications: Situational stress Take 1 Tablet by mouth in the morning and 1 Tablet before bedtime. 180 Tablet 1 04/21/2023 Active amLODIPine Besylate 2.5 MG Oral Tablet [...] the morning. 90 Tablet 1 05/25/2023 Active Lisinopril 40 MG Oral TabletIndications:HT N, goal below 140/80,Type 2 diabetes mellitus with hemoglobin A1c goal of less than 7.0% (HCC),Microalbuminur ia due to type 2 diabetes mellitus (HCC),Dehydration TAKE 1 TABLET BY MOUTH EVERY DAY IN THE MORNING 90 Tablet 1 05/25/2023 Active metFORMIN HCl ER 500 MG Oral Tablet Extended Release 24 Hour (Glucophage XR)Indications:Type 2 diabetes mellitus with hemoglobin A1c goal of less than 7.0% (HCC) Take 2 Tablets by mouth 2 times a day with morning and evening meals. 360 Tablet 3 07/05/2023 Active Mounjaro 10 MG/0.5ML Subcutaneous Solution Pen-injector (Tirzepatide)Indicat ions:Type 2 diabetes mellitus with hemoglobin A1c goal of less than 7.0% (HCC) Inject 10 mg under the skin once a week. 6 mL 3 07/27/2023 07/26/2024 Active documented as of this encounter (statuses as of 08/21/2023) Active Problems Problem Noted Date Diagnosed Date [...] as of this encounter (statuses as of 08/21/2023) Resolved Problems Problem Noted Date Diagnosed Date [...] as of this encounter (statuses as of 08/21/2023) Immunizations Name Administration Dates Next Due COVID-19 [...] money to get more. Never true 2022 Sex and Gender Information Value Date Recorded Sex Assigned at Female 08/09/2018 11:51 AM EDT Gender Identity Female 08/09/2018 11:51 AM EDT Sexual Orientation Straight 08/09/2018 11 :51 AM EDT Job Start Date Occupation Industry Not on file Not on file Not on file documented as of this encounter Miscellaneous Notes * Telephone Encounter - Arti Gutierrez MD - 08/15/2023 12:26 PM EDT Too soon * Telephone Encounter - Arti Gutierrez MD - 08/15/2023 12:26 PM EDTRefused Prescriptions: Disp Refills busPIRone HCl 5 MG Oral Tablet (Buspar) 180 Ta*1 Sig: TAKE 1 TABLET BY MOUTH IN THE MORNING AND BEFORE BEDTIME Refused By: ARTI GUTIERREZ Reason for Refusal: Too soon * Telephone Encounter - Laly Ahuja [facility] - 08/15/2023 6:06 AM EDT Pending Prescriptions: Disp Refills busPIRone HCl 5 MG Oral Tablet (Buspar) 180 Ta*1 Sig: TAKE 1 TABLET BY MOUTH IN THE MORNING AND BEFORE BEDTIME * Telephone Encounter - Laly Ahuja RP - 08/15/2023 6:06 AM EDT Refill pharmacists currently not authorized to approve refills for this class of medication per refill protocol. Please approve if appropriate. Thank you, Laly Ahuja, PharmD. Clinical Pharmacist Pharmacy Refill Call Center 08/15/2023, 6:06 AM documented in this encounter Plan of Treatment Upcoming Encounters Date Type Department Care Team (Late st Contact Info) Description 10/05/2023 10:30 AM EDT Office Visit Pharmacy, [facility] [place] [address] [place], [place] [address] Pharmacist1, [facility] [address] [place], [place] [address] 01/05/2024 1:00 PM EDT Office Visit [facility] [place] [address] [place] [address] Arti Gutierrez MD [address] [place] [address] 02/20/2024 9:15 AM EST Imaging Radiology [facility] [place] [address] [facility] [place] [address] Health Maintenance Due Date Last Done Comments Cologuard 1997 Sigmoidoscopy 1997 COVID-19 Vaccine ( season) 2023 12/28/2022, 12/15/2021, 06/10/2021, Additional history exists Diabetic Eye Exam 08/09/2023 08/08/2022, , 01/12/2016, Additional history exists Depression Screening 09/24/2023 2022 Diabetic Foot Exam 09/24/2023 2022, 0 03/09/2018, 01/14/2016, Additional history exists B-12 09/25/2023 09/24/2022, 03/09/2018 HbA1c 12/31/2023 07/01/2023, 03/07, 12/28/2022, Additional history exists Mammogram 02/17/2024 02/16/2023, 02/03, [...] Completed 12/01/2021, 11/30/2017, 01/19/2016, Additional history exists Influenza Vaccine (FLU shot) Completed , 11/15/2021, 11/23/2020, Additional history exists Hepatitis B Completed 07/04/2023, 02/03, 01/18/2023 GARDASIL-HPV IMMUNIZATION SERIES Aged Out No longer eligible based on patient's age to complete this topic MENINGOCOCCAL (MENACTRA/MENVEO) Aged Out No longer eligible based on patient's age to complete this topic documented as of this encounter Medical Devices Not on filedocumented as of this encounter Visit Diagnoses Diagnosis Situational stress Other psychological or physical stress, not elsewhere classified documented in this encounter Care Teams Merchandising Execution Manager Relationship Specialty Start Date End Date Arti Gutierrez MD [address] [place] [address] PCP - General Internal Medicine 09/23/22 documented as of this encounter
--- OUTSIDE RECORDS SUMMARY | 2024-02-05 19:46 | External Medical Summary | Summary of Care ---
Author Name Unknown Organization [facility] Address [address] [place] [address] Phone [phone] Care Team Providers Care Copy And Print Associate Name Role Phone Arti Gutierrez MD Primary Care Provider [phone] Reason for Visit * Reason Comments Outpatient Testing Encounter Details Date Type Department Care Team (Late st Contact Info) Description 10/03/2023 8:30 AM EDT Laboratory Laboratory [facility] State [place] [address] [place] [phone] [facility] Lab [facility] 200 [facility] [place] [address] Type 2 diabetes mellitus with hemoglobin A1c goal of less than 7.0% (HCC); HTN, goal below 140/80 Allergies Active Allergy Reactions Criticality Noted Date Comments Pioglitazone Hydrochloride 9 Gi upset Semaglutide Diarrhea,Nausea/vomiting 11/04/2022 documented as of this encounter (statuses as of 10/03/2023) Medications Medication Sig Dispensed Refills Start Date [...] week. 2 mL 11 09/19/2023 09/18/2024 Active documented as of this encounter (statuses as of 10/03/2023) Active Problems Problem Noted Date Diagnosed Date [...] as of this encounter (statuses as of 10/03/2023) Resolved Problems Problem Noted Date Diagnosed Date [...] as of this encounter (statuses as of 10/03/2023) Immunizations Name Administration Dates Next Due COVID-19 [...] Influenza, Split, I IV3, With Preserve, Inj 11/17/2014,12/26/2013,11/19/2012,/04/2011,11/26/2010,11/23/2009,12/05/19 09,12/02/2007 Seasonal Influenza, Trivalen t, Adjuvanted, 65+ [...] 10/05/2023 10:30 AM EDT Office Visit Pharmacy, [facility] 200 [facility] [place] [address] Pharmacist1, [facility] 200 [facility] [place] [address] 01/05/2024 1:00 PM EDT Office Visit General Internal Medicine [facility] 200 [facility] [place] [address] Arti Gutierrez MD 200 [facility] [place] [address] 02/20/2024 9:15 AM EST Imaging Radiology [address] 132 [facility] [place] [address] Pending Results Name Type Priority Associated Diagnoses Date /Time HEMOGLOBIN A1C Lab Routine Type 2 diabetes mellitus with hemoglobin A1c goal of less than 7.0% ([facility]) 10/03/2023 8:35 AM EDT Health Maintenance Due Date Last [...] 2023 12/28/2022, 11/15/2021, 11/23/2020, Additional history exists HbA1c 12/31/2023 07/01/2023, 03/07, 12/28/2022, Additional history [...] Completed 12/01/2021, 11/30/2017, 01/19/2016, Additional history exists *BASELINE EKG FOR HTN Completed 2022, 019 Hepatitis C Screening Completed 01/16/2023 , 01/16/2023, 01/16/2023 Hepatitis B Vaccine Completed 07/04/2023, 02/20/2023, 01/18/2023 [...] A1c goal of less than 7.0% (HCC) HTN, goal below 140/80 Unspecified essential hypertension documented in this encounter Care Teams Copy And Print Associate Relationship Specialty Start Date End Date Arti Gutierrez MD 200 [place] [address] PCP - General Internal Medicine 09/23/22 documented as of this encounter
--- OUTSIDE RECORDS SUMMARY | 2024-02-05 19:46 | External Medical Summary | Summary of Care ---
Author Name Unknown Organization [facility] Address [address] [place] [address] Phone [phone] Care Team Providers Care Print Cutter Name Role Phone Arti Gutierrez MD Primary Care Provider [phone] Reason for Visit * Reason Comments Diabetes Follow-Up Dosage Adjustment In Person (Anticoag Cl inic) Hypertension Encounter Details Date Type Department Care Team (Late st Contact Info) Description 10/05/2023 10:30 AM EDT Office Visit Pharmacy, [facility] 200 [facility] [place] [address] Pharmacist1, [facility] 200 [facility] [place] [address] Type 2 diabetes mellitus with hemoglobin A1c goal of less than 7.0% ([facility])* Allergies Active Allergy Reactions Criticality Noted Date Comments Pioglitazone Hydrochloride 9 Gi upset Semaglutide Diarrhea,Nausea/vomiting 11/04/2022 documented as of this encounter (statuses as of 10/05/2023) Medications Medication Sig Dispensed Refills Start Date [...] as of this encounter (statuses as of 10/05/2023) Active Problems Problem Noted Date Diagnosed Date [...] as of this encounter (statuses as of 10/05/2023) Resolved Problems Problem Noted Date Diagnosed Date [...] as of this encounter (statuses as of 10/05/2023) Immunizations Name Administration Dates Next Due COVID-19 [...] as of this encounter Progress Notes * Bruno Knapp, [facility] - 10/05/2023 10:10 AM EDT Medication Therapy [facility] - Diabetes Management Progress Note Yessenia Justice, identified by name and date of , is a 73 year old female being seen for diabetes management/education. Patient presents for return diabetic visit. DIABETES: Current diabetic medications: Metformin ER 500mg 2 tablets with breakfast and supper Glipizide XL 5mg twice daily Mounjaro 7.5mg weekly Medication Injection Site: Abdomen Lifestyle: Diet: She feels she is eating less with Mounjaro History of Treatment Barriers: Lifestyle: None Therapy considerations: Renal Function Medication: Metformin IR: CARINA diarrhea, Semaglutide: severe nausea Glucose Review/SMBG: Readings obtained from patient documented BG logbook Pre am Post am Pre Lunch Post pm HS -Sep 135 133 99 95 128 124 151 112 130 160 158 122 136 137 133 123 117 124 139 81 151 101 129 156 96 88 136 119 137 154 122 112 117 132 142 114 81 142 156 121 131 140 119 91 122 139 149 78 114 119 148 120 131 136 136 137 136 144 130 122 124 95 144 100 126 92 133 113 126 100 108 125 119 84 104 136 132 129 143 145 144 68 131 120 130 122 102 108 146 101 136 142 122 80 81 134 70 88 93 145 139 119 123 90 117 133 93 144 115 128 134 106 Pre am Post am Pre Lunch Post pm HS Average 117 127 120 133 109 Hi 139 160 120 158 144 Lo 68 81 120 70 78 Range 71 79 0 88 66 Hypoglycemia: Does your blood sugar go below 70 mg/dL? Yes, she was symptomatic and treated correctly (soda) Hyperglycemia symptoms present: polydipsia, fatigue Goal <7 Recent Labs Units 10/03/23 0835 07/01/23 0936 03/31/23 1026 HEMOGLOBIN A1C - [facility] % 5.9* 6.3* 7.6* Recent Labs Units 07/01/23 0936 04/11/23 0839 03/31/23 1026 ESTIMATED GLOMERULAR FILTRATION RATE - [facility] mL/min 60 63 60 CREATININE - [facility] mg/dL 1.0 1.0 1.0 Lab Results Component Value Date/Time CREATININE - [facility] 1.0 07/01/2023 09:36 AM CREATININE - [facility] 1.0 04/11/2023 08:39 AM CREATININE - [facility] 1.0 03/31/2023 10:26 AM CREATININE - [facility] 0.9 08/06/2018 08:26 AM CREATININE - [facility] 1.0 02/23/2018 09:46 AM CREATININE - [facility] 0.8 01/14/2016 10:14 AM CREATININE, RANDOM URINE - [facility] 49 07/01/2023 09:36 AM CREATININE, RANDOM URINE - [facility] 59 03/31/2023 10:26 AM CREATININE, RANDOM URINE - [facility] 60 12/28/2022 08:24 AM CREATININE, RANDOM URINE - [facility] 125 02/23/2018 09:46 AM CREATININE, RANDOM URINE - [facility] 67 01/14/2016 10:16 AM CREATININE, RANDOM URINE - [facility] 98 05/22/2014 09:47 AM HYPERTENSION: Patient on ACEi/ARB: yes, Lisinopril 40mg daily BP Readings from Last 3 Encounters: 07/13/23 179/103 07/04/23 120/73 05/18/23 148/88 Systolic Diastolic HR 1-Eb 107 72 83 122 78 74 107 68 74 109 71 73 115 64 77 123 79 68 117 73 71 121 73 74 116 71 67 94 60 79 105 62 76 86 64 83 106 73 71 114 72 80 Systolic Diastolic HR Average 110 70 75 Hi 123 79 83 Lo 86 60 67 Range 37 19 16 Blood pressure at goal: yes Current regimen: Lisinopril-HCTZ 20-25 mg once daily Metoprolol succinate ER 50 mg daily Amlodipine 2.5mg daily Blood Pressure Goal: < 140/80 mmHg No results for input(s): "MICROALBUMIN" in the last 36[address] hours. Recent Labs Units 07/01/23 0936 04/11/23 0839 03/31/23 1026 POTASSIUM - [facility] mmol/L 5.0 4.3 4.4 HYPERLIPIDEMIA: Patient is taking moderate or high intensity statin: yes, Atorvstatin 40mg daily HEALTH MAINTENANCE REVIEW: Health Maintenance Due Topic Date Due COVID-19 Vaccine ( season) 2023 Diabetic Eye Exam 08/09/2023 Diabetic Foot Exam 09/24/2023 Depression Screening 09/24/2023 B-12 09/25/2023 ASSESSMENT & PLAN: ICD-10-CM 1. Type 2 diabetes mellitus with hemoglobin A1c goal of less than 7.0% (HCC) E11.9 BG Readings - Blood sugars controlled. A1C 5.9!! Medications - Reviewed current regimen, patient is adherent to regimen. We discussed stopping Glipizide in the evening but will wait until next visit and see if the lows continue. Diet, Exercise, Lifestyle - Mounjaro has made a big difference . Discussed with patient today. Patient is agreeable to SMBG 4 time(s) daily. Patient aware to contact clinic if any hypoglycemia before next visit. MEDICATION CHANGES: no change Diabetic Medications: Metformin ER 500mg 2 tablets with breakfast and supper Glipizide XL 5mg twice daily Mounjaro 7.5mg weekly HEALTH MAINTENANCE INTERVENTIONS: Labs: Ordered & Scheduled: Vitamin B12 Immunizations: Up to Date Foot Exam: needs completed Eye Exam: needs completed Annual Wellness Visit: Up to Date FOLLOW UP: Return to clinic in 3 months 01/05/2024 Bruno Mac RPh, USHAE Clinical Pharmacist - Director Informatics Medication Therapy Management [facility] 10/05/2023, 10:10 AM documented in this encounter Plan of Treatment Upcoming Encounters Date Type Department Care Team (Late st Contact Info) Description 01/05/2024 1:00 PM EDT Office Visit General Internal Medicine [facility] [place] [address] [place] [address] Arti Gutierrez MD [address] [place] [address] 01/05/2024 1:40 PM EDT Office Visit Pharmacy, State Marzena Andrade [address] [place] [address] [place] [address] Pharmacist1, [facility] [address] [place] [address] 02/20/2024 9:15 AM EST Imaging Radiology [facility] 1st [facility], [place] [address] [place] [address] Health Maintenance Due Date Last Done Comments [...] Primary documented in this encounter Care Teams Print Cutter Relationship Specialty Start Date End Date Arti Gutierrez MD [address] [place] [address] PCP - General Internal Medicine 09/23/22 documented as of this encounter
--- OUTSIDE RECORDS SUMMARY | 2024-02-05 19:46 | External Medical Summary ---
Author Name Unknown Address Unknown Organization K01:[facility] - [address] [facility] [address] Laboratory Report Ordering Provider Test Date Status [facility] 10/03/2023 08:35:45 Final Observation Date Value Abnormality Reference (Units ) Status HbA1C 10/03/2023 08:35:45 5.9 Above high normal 4. 0-5.6 (%) Final The use of HbA1c to monitor glycemic status is based on normal hemoglobin and HbA composition. This test should not be used in patients with abnormal hemoglobin that affects the half life of the red blood cell or the in vivo glycation rates. Glucose, estimated average 10/03/2023 08:35:45 123 <126 (mg/dL) Final Performing Location [facility] - [address] [facility] [address]
--- OUTSIDE RECORDS SUMMARY | 2024-02-05 19:46 | External Medical Summary | Summary of Care ---
Author Name Unknown Organization [facility] Address [address] [place] [address] Phone [phone] Care Team Providers Care Printer Technician Name Role Phone Arti Gutierrez MD Primary Care Provider [phone] Reason for Visit * Reason Onset Date Comments Health Maintenance 09/05/2023 Encounter Details Date Type Department Care Team (Late st Contact Info) Description 09/05/2023 Telephone General Internal Medicine [facility] 200 [place] [address] Arti Gutierrez MD 200 [place] [address] Health Maintenance Allergies Active Allergy Reactions Criticality Noted Date Comments Pioglitazone Hydrochloride 9 Gi upset Semaglutide Diarrhea,Nausea/vomiting 11/04/2022 documented as of this encounter (statuses as of 09/05/2023) Medications Medication Sig Dispensed Refills Start Date [...] MORNING 90 Tablet 1 08/28/2023 Active Mounjaro 5 MG/0.5ML Subcutaneous Solution Pen-injector (Tirzepatide) Inject 5 mg under the skin once a week. 2 mL 11 09/04/2023 09/03/2024 Active documented as of this encounter (statuses as of 09/05/2023) Active Problems Problem Noted Date Diagnosed Date [...] as of this encounter (statuses as of 09/05/2023) Resolved Problems Problem Noted Date Diagnosed Date [...] as of this encounter (statuses as of 09/05/2023) Immunizations Name Administration Dates Next Due COVID-19 [...] encounter Miscellaneous Notes * Telephone Encounter - Tracey Neves LPN - 09/05/2023 10:24 AM EDT Care Gaps Comprehensive Care Outreach Last Office/Telemedicine Visit: 07/04/2023 (in office), Visit date not found (telemedicine) Next Office Visit: 01/05/2024 Hemoglobin AIC Results: Lab Results Component Value Date/Time HEMOGLOBIN A1C - [facility] 6.3 (H) 07/01/2023 09:36 AM HEMOGLOBIN A1C - [facility] 7.6 (H) 03/31/2023 10:26 AM HEMOGLOBIN A1C - [facility] 7.0 (H) 12/28/2022 08:22 AM HEMOGLOBIN A1C - [facility] 6.4 (H) 08/06/2018 08:26 AM HEMOGLOBIN A1C - [facility] 7.6 (H) 02/23/2018 09:46 AM HEMOGLOBIN A1C - [facility] 8.2 (H) 01/14/2016 10:14 AM BP Readings from Last 1 Encounters: 07/13/23 179/103 Reviewed Health Maintenance below: Health Maintenance Topic Date Due COVID-19 Vaccine ( season) 2023 Diabetic Eye Exam 08/09/2023 Diabetic Foot Exam 09/24/2023 Depression Screening 09/24/2023 B-12 09/25/2023 Influenza Vaccine (FLU shot) (1) 11/05/2023 HbA1c 12/31/2023 Mammogram 02/17/2024 Eye heimer requested Labs already ordered Mamm dec 14 already scheduled Care Gap Outreach Action Taken: Outside records requested documented in this encounter Plan of Treatment Upcoming Encounters Date Type Department Care Team (Late st Contact Info) Description 10/05/2023 10:30 AM EDT Office Visit Pharmacy, [place] Marzena Andrade [address] [place] [place] [address] Pharmacist1, [facility] [address] [place] [address] [address] 01/05/2024 1:00 PM EDT Office Visit General Internal Medicine State Marzena Andrade [address] [place] [address] Arti Gutierrez MD [address] [facility] [place] [address] 02/20/2024 9:15 AM EST Imaging Radiology [facility] 1st [facility] [address] [place] [address] Health Maintenance Due Date Last Done Comments [...] 12/28/2022, Additional history exists GFR 06/30/2024 07/01/2023, 08/2023, 03/31/2023, Additional history exists Lipid Panel 03/31/2028 03/31/2023, 12/05, 09/24/2022, Additional history exists DTaP,Tdap,and Td Vaccines (4 - Td or Tdap) 04/13/2028 04/13/2018, 04/13/2018, 04/07/2008 DXA Scan 06/28/2029 06/28/2022, 04/02/2018 Colonoscopy 01/25/2031 01/25/2021 Colorectal Cancer Screening 01/25/2031 Zoster Vaccines Completed 07/15/2019, 03/06, 10/02/2012 Pneumococcal Vaccine: 65+ Years Completed 12/01/2021, 11/30/2017, 01/19/2016, Additional history exists Hepatitis B Completed 07/04/2023, 02/03, 01/18/2023 GARDASIL-HPV IMMUNIZATION SERIES Aged Out No longer eligible based on patient's age to complete this topic MENINGOCOCCAL (MENACTRA/MENVEO) Aged Out No longer eligible based on patient's age to complete this topic documented as of this encounter Medical Devices Not on filedocumented as of this encounter Care Teams Printer Technician Relationship Specialty Start Date End Date Arti Gutierrez MD [address] [place] [address] PCP - General Internal Medicine 09/23/22 documented as of this encounter
--- OUTSIDE RECORDS SUMMARY | 2024-02-05 19:46 | External Medical Summary | Summary of Care ---
Author Name Unknown Organization [facility] Address [address] [place] [address] Phone [phone] Care Team Providers Care Manual Arts Therapist Name Role Phone Arti Gutierrez MD Primary Care Provider [phone] Reason for Visit * Reason Comments eRx-Medication Refill Encounter Details Date Type Department Care Team (Late st Contact Info) Description 08/27/2023 Refill General Internal Medicine [facility] 200 [facility] [place] [address] Arti Gutierrez MD 200 [place] [address] HTN, goal below 140/80; Type 2 diabetes mellitus with hemoglobin A1c goal of less than 7.0% ([facility]); Microalbuminuria due to type 2 diabetes mellitus ([facility]); Dehydration Allergies Active Allergy Reactions Criticality Noted Date Comments Pioglitazone Hydrochloride 9 Gi upset Semaglutide Diarrhea,Nausea/vomiting 11/04/2022 documented as of this encounter (statuses as of 08/28/2023) Medications Medication Sig Dispensed Refills Start Date [...] skin once a week. 2 mL 11 08/28/2023 08/28/19 25 Active Lisinopril 40 MG Oral TabletIndications: HTN, goal below 140/80,Type 2 diabetes mellitus with hemoglobin A1c goal of less than 7.0% (HCC),Microalbumin uria due to type 2 diabetes mellitus (HCC),Dehydration TAKE 1 TABLET BY MOUTH EVERY DAY IN THE MORNING 90 Tablet 1 05/25/2023 08/28/19 24 Discontinued documented as of this encounter (statuses as of 08/28/2023) Active Problems Problem Noted Date Diagnosed Date [...] as of this encounter (statuses as of 08/28/2023) Resolved Problems Problem Noted Date Diagnosed Date [...] as of this encounter (statuses as of 08/28/2023) Immunizations Name Administration Dates Next Due COVID-19 [...] encounter Miscellaneous Notes * Telephone Encounter - Eugenio Miles [facility] - 08/28/2023 2:35 PM EDTSigned Prescriptions: Disp Refills Lisinopril 40 MG Oral Tablet 90 Tab*1 Sig: TAKE 1 TABLET BY MOUTH EVERY DAY IN THE MORNINGAuthorizing Provider: Sanjeev GUTIERREZ User: EUGENIO MILES--------- Electronically signed by Eugenio Miles [facility] at 08/28/2023 2:35 PM EDT documented in this encounter Plan of Treatment Upcoming Encounters Date Type Department Care Team (Late st Contact Info) Description 10/05/2023 10:30 AM EDT Office Visit Pharmacy, [facility] [place] [address] [place] [address] Pharmacist1, [facility] [address] [place] [address] 01/05/2024 1:00 PM EDT Office Visit General Internal Medicine [facility] [place] [address] [place] [address] Arti Gutierrez MD [address] [place] [address] 02/20/2024 9:15 AM EST Imaging Radiology [address], [place] [address] [place] [address] Health Maintenance Due Date Last Done Comments [...] as of this encounter Visit Diagnoses Diagnosis HTN, goal below 140/80 Unspecified essential hypertension Type 2 diabetes mellitus with hemoglobin A1c goal of less than 7.0% (HCC) Microalbuminuria due to type 2 diabetes mellitus (HCC) Dehydration documented in this encounter Care Teams Manual Arts Therapist Relationship Specialty Start Date End Date Arti Gutierrez MD 200 [facility] [place] [address] PCP - General Internal Medicine 09/23/22 documented as of this encounter
--- OUTSIDE RECORDS SUMMARY | 2024-02-05 19:46 | External Medical Summary | Summary of Care ---
Author Name Unknown Organization [facility] Address [address] [place] [address] Phone [phone] Care Team Providers Care Booking Prizer Name Role Phone Arti Gutierrez MD Primary Care Provider [phone] Reason for Visit * Reason Comments eRx-Medication Refill Encounter Details Date Type Department Care Team (Late st Contact Info) Description 11/10/2023 Refill General Internal Medicine [facility] [address] [facility] [place] [address] Arti Gutierrez MD 200 [place] [address] HTN, goal below 140/80; Non-rheumatic aortic sclerosis; Type 2 diabetes mellitus with hemoglobin A1c goal of less than 7.0% (HCC); Nonrheumatic mitral valve regurgitation; Nonrheumatic aortic valve stenosis; Situational stress Allergies Active Allergy Reactions Criticality Noted Date Comments Pioglitazone Hydrochloride 9 Gi upset Semaglutide Diarrhea,Nausea/vomiting 11/04/2022 documented as of this encounter (statuses as of 11/13/2023) Medications Medication Sig Dispensed Refills Start Date [...] hemoglobin A1c goal of less than 7.0% ([facility]) Take 2 Tablets by mouth 2 times [...] hemoglobin A1c goal of less than 7.0% ([facility]) Inject 7.5 mg under the skin once [...] THE MORNING 90 Tablet 1 11/13/2023 Active Metoprolol Succinate ER 50 MG Oral Tablet Extended Release 24 Hour (toPROL XL)Indications:HTN , goal below 140/80,Non-rheumat ic aortic sclerosis,Type 2 diabetes mellitus with hemoglobin A1c goal of less than 7.0% (HCC),Nonrheumatic mitral valve regurgitation,Nonr heumatic aortic valve stenosis Take 1 Tablet by mouth in the morning. 90 Tablet 1 05/25/2023 11/13/19 24 Discontinued documented as of this encounter (statuses as of 11/13/2023) Active Problems Problem Noted Date Diagnosed Date [...] as of this encounter (statuses as of 11/13/2023) Resolved Problems Problem Noted Date Diagnosed Date [...] as of this encounter (statuses as of 11/13/2023) Immunizations Name Administration Dates Next Due COVID-19 [...] Notes * Telephone Encounter - Justine Vyas RPh - 11/13/2023 8:39 AM EDTSigned Prescriptions: Disp Refills Metoprolol Succinate ER 50 MG Oral Tablet *90 Tab*1 Sig: TAKE 1 TABLET BY MOUTH EVERY DAY IN THE MORNINGAuthorizing Provider: Sanjeev GUTIERREZ User: Yamileth VYAS Prescriptions: Disp Refills busPIRone HCl 10 MG Oral Tablet (Buspar) 60 Tab*2 Sig: TAKE 0.5 TABLETS BY MOUTH IN THE MORNING AND 0.5 TABLETS BEFORE BEDTIME. IFNOT BETTER IN 2 DAYS INC TO 10MG TWICE DAILY. DO NOT START BEFORE SEPTEMBER 25, 2022.Refused By: JUSTINE VYAS for Refusal: Refill Not Appropriate documented in this encounter Plan of Treatment Upcoming Encounters Date Type Department Care Team (Late st Contact Info) Description 01/05/2024 1:00 PM EDT Office Visit General Internal Medicine [address] [place] [address] Arti [facility]ierrez MD [facility] [place] [address] 01/05/2024 1:40 PM EDT [facility] [place] [address] [facility] [place] [address] Pharmacist1, [facility] [address] [facility] [place] [address] 02/20/2024 9:15 AM EST Imaging Radiology [address], [place] 132 [facility] [place] [address] Health Maintenance Due Date Last Done Comments [...] 12/28/2022, Additional history exists GFR 06/30/2024 07/01/2023, 0 08/2023, 03/31/2023, Additional history exists Lipid Panel [...] HTN, goal below 140/80 Unspecified essential hypertension Non-rheumatic aortic sclerosis Atherosclerosis of aorta Type 2 diabetes mellitus with hemoglobin A1c goal of less than 7.0% (HCC) Nonrheumatic mitral valve regurgitation Nonrheumatic aortic valve stenosis Aortic valve disorders Situational stress Other psychological or physical stress, not elsewhere classified documented in this encounter Care Teams Booking Prizer Relationship Specialty Start Date End Date Arti Gutierrez MD [address] [facility] [place] [address] PCP - General Internal Medicine 09/23/22 documented as of this encounter
[2024-02-05] MEDS ORDERED: ACETAMINOPHEN 325 MG TAB PO PRN (20:14)
[2024-02-05] MEDS: amLODIPine BESYLATE 5 MG TAB PO SCH (20:30)
[2024-02-05] MEDS: guaiFENesin/DEXTROM SYRUP 200MG/20MG 10ML UDC PO PRN (21:13)
[2024-02-05] MEDS: ENOXAPARIN INJ 40 MG/0.4 ML SYR SQ SCH (21:14)
[2024-02-05] MEDS: busPIRone 5 MG TAB PO SCH (21:18)
[2024-02-05] MEDS: hydrALAZINE HCL 20 MG/ML VIAL IV PRN (21:27)
[2024-02-05] MEDS ORDERED: GLUCOSE 40% GEL 15 GM TUBE PO PRN (22:07)
[2024-02-05] MEDS ORDERED: GLUCAGON FOR INJ 1 MG VIAL SQ PRN (22:07)
[2024-02-05] MEDS ORDERED: CARBOHYDRATES FOR HYPOGLYCEMIA PO PRN (22:07)
[2024-02-05] MEDS ORDERED: GLUCOSE 10 TAB/TUBE PO PRN (22:07)
[2024-02-05] MEDS ORDERED: DEXTROSE 50% 50 ML SYRINGE IV PRN (22:07)
[2024-02-05] MEDS: INSULIN ASPART PER UNIT CHARGE SC SCH (22:25)
[2024-02-05] MEDS: LORazepam 0.5 MG TAB PO STA (22:28)
--- NOTE | 2024-02-06 01:52 | Magnetic Resonance Report ---
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 TECHNIQUE: Magnetic resonance angiography images of the head without intravenous contrast. COMPARISON: No relevant prior studies available. FINDINGS: Right internal carotid artery: No acute findings. Intracranial segment is patent with no significant stenosis. No aneurysm. Right anterior cerebral artery: Unremarkable. No occlusion or significant stenosis. No aneurysm. Right middle cerebral artery: Unremarkable. No occlusion or significant stenosis. No aneurysm. Right posterior cerebral artery: Unremarkable. No occlusion or significant stenosis. No aneurysm. Right vertebral artery: Unremarkable as visualized. Left internal carotid artery: No acute findings. Intracranial segment is patent with no significant stenosis. No aneurysm. Left anterior cerebral artery: Unremarkable. No occlusion or significant stenosis. No aneurysm. Left middle cerebral artery: Unremarkable. No occlusion or significant stenosis. No aneurysm. Left posterior cerebral artery: Unremarkable. No occlusion or significant stenosis. No aneurysm. Left vertebral artery: Unremarkable as visualized. Basilar artery: Unremarkable. No occlusion or significant stenosis. No aneurysm. IMPRESSION: Negative MRA of the brain. Electronically signed by: Katerin Rivera MD 02/06/24 01:51 AM
[2024-02-06 07:19] LABS: Basophils # (auto) 0.06 K/uL (0.00-0.20); Basophils % (auto) 0.6 %; Eosinophils # (auto) 0.15 K/uL (0.00-0.50); Eosinophils % (auto) 1.4 %; Hematocrit (blood only) 36.9 % (37.0-47.0); Hemoglobin 12.7 g/dl (12.0-16.0); Immature Granulocytes # (auto) 0.05 K/uL (0.01-0.20); Immature Granulocytes % (auto) 0.5 %; Lymphocytes # (auto) 3.22 K/uL (1.20-3.40); Lymphocytes % (auto) 30.5 %; Mean Corpuscular Hgb Conc 34.4 g/dL (32.0-36.0); Mean Corpuscular Volume 87.2 fL (80.0-100.0); Mean Platelet Volume 9.5 fL (9.4-12.4); Monocytes # (auto) 0.64 K/uL (0.11-0.59); Monocytes % (auto) 6.1 %; Neutrophils # (auto) 6.44 K/uL (1.40-6.50); Neutrophils % (auto) 60.9 %; Platelet Count 251 K/uL (130-400); RDW Coefficient of Variation 13.4 % (11.5-14.5); RDW Standard Deviation 41.7 fL (36.4-46.3); Red Blood Count 4.23 M/uL (4.20-5.40); White Blood Count 10.56 K/ul (4.8-10.8)
[2024-02-06 07:41] LABS: Albumin Globulin Ratio 1.7 (0.9-2); Bilirubin,Total 0.6 mg/dl (0.2-1.0); Calcium 9.3 mg/dl (8.6-10.3); Creatinine Clr Calc Pharmacy 51.9 ml/min; Globulin 2.4 gm/dl (2.5-4.0); Potassium 4.1 mmol/L (3.5-5.1); Total Protein 6.4 gm/dl (6.0-8.3)
[2024-02-06] MEDS: lisinopril 40 MG TAB PO SCH (09:08)
[2024-02-06] MEDS: ASPIRIN 81 MG ECTAB PO SCH (09:08)
[2024-02-06] MEDS: ATORVASTATIN 40 MG TAB PO SCH (09:08)
[2024-02-06] MEDS: METOPROLOL SUCC 50MG EXT REL TAB PO SCH (09:08)
[2024-02-06] MEDS: MULTIVITAMIN TAB PO SCH (09:08)
--- NOTE | 2024-02-06 11:58 | Neurology Consultation ---
Date of Consultation February 06, 2024 Assessment & Plan (1) Third nerve palsy: Right CN III palsy- possible sequela of recent COVID infection Recommend CTA head & neck Recommend send serum GBS antibodies- especially [id number] Recommend send serum MG antibody panel Plan for continued follow up with adult Neurology Ophthalmology consultation/ambulatory referral Continue frequent neurological assessments Obtain stat CT brain without contrast for any acute neurological decline Continue to monitor/control blood pressure & blood glucose Continue to monitor telemetry closely Continue to monitor renal and hepatic function, keep euvolemic Metabolic workup Monitor for s/s of infection Ok from neurology perspective for VTE prophylaxis PT/OT/SLT to eval and treat Recommend eval for CARMELO and consider outpatient polysomnography Recommend no driving Telehealth Consultation Telehealth Information Telehealth Information: I performed this visit using a real-time telehealth connection between my location and the patients location ([facility]). After connecting through interactive tele-video, patient was identified by name and date of and/or wristband check.Patient (or authorized healthcare manufacturers representative) was informed that this was a telemedicine visit and it was being conducted confidentially over secure lines. My office door was closed and no one else was present in the room with me.Patient (or authorized healthcare manufacturers representative) provided consent to proceed with the visit, expressed an understanding of privacy and security of the telemedicine visit, and gave permission to have a hospital manufacturers representative in the room in order to assist with the visit and to conduct portions of the visit, as needed. I informed the patient (or authorized healthcare manufacturers representative) that I reviewed their record and presented the opportunity for them to ask any questions regarding the visit today. The patient agreed to participate. History of Present Illness Reason for Consultation: 3rd nerve palsy Attending Physician: Nasra Jj MD History of Present Illness 73yo female with known hx of DM she reports as well controlled as well as HTN, hyperlipidemia reports having recently suffered COVID infection and began testing negative on 01/30 presents with several days of right eye lid ptosis and what appears to be a right CN 3 palsy. She notably reports severe headache in days leading up to the onset of ptosis. She has undergone MRI brain with and without contrast revealing no overt evidence of acute intracranial abnormality. She has also undergone MRA head without overt causative pathology. I have performed televideo consultation. She is alert & oriented; able to answer all questions appropriately, repeat phrases and perform complex/embedded commands without deficit. Neurological exam is non lateralizing/nonfocal in terms of motor strength and coordination. She denies cephalgia or cervicalgia at this time. Denies chest pain/palpitations or shortness of breath. She reports diplopia if both eyes are opened and prefers to wear patch covering right eye. No reported changes in hearing dizziness syncope seizure like activity or paresthesia. Denies recent fevers chills nausea vomiting changes in bowels or bladder. Denies recent medication changes, recent illness or sick contacts, no reported recent travel Allergies Allergy/AdvReac Type Severity Reaction Status Date / Time cat dander Allergy Unknown Hives Verified 02/05/24 12:46 pioglitazone [From Actos] Allergy Unknown Unknown Unverified 02/05/24 12:46 pollen extracts Allergy Unknown ITCHY Verified 02/05/24 12:46 EYES, SNEEZING, CONGESTION Home Medications Medication Instructions Recorded Confirmed Type atorvastatin 40 mg tablet 40 mg PO QAM 11/22/18 02/05/24 History multivitamin 1 tab PO QAM 01/21/21 02/05/24 History buspirone 5 mg tablet 5 mg PO BID 11/30/22 02/05/24 History metformin 500 mg tablet,extended 1,000 mg PO BID 11/30/22 02/05/24 History release 24 hr amlodipine 2.5 mg tablet 2.5 mg PO BID 02/05/24 02/05/24 History aspirin 81 mg chewable tablet 81 mg PO QAM 02/05/24 02/05/24 History lisinopril 40 mg tablet 40 mg PO QAM 02/05/24 02/05/24 History metoprolol succinate 50 mg 50 mg PO QAM 02/05/24 02/05/24 History tablet,extended release 24 hr tirzepatide 7.5 mg/0.5 mL 7.5 mg subcut WK 02/05/24 02/05/24 History subcutaneous pen injector (Mounjaro) Patient History Medical History Anxiety Diabetes mellitus, type 2 Environmental allergies Gastric ulcer hx Heart murmur MILD; dr. medel, s History of colonic polyps History of sciatica Hx of bronchitis Hyperlipidemia Hypertension Unique anesthetic considerations on preoperative anesthesia assessment pt reports high anxiety/gets nervous and has white coat syndrome. White coat syndrome without diagnosis of hypertension Surgical History H/O total hysterectomy History of cataract surgery History of colonoscopy History of esophagogastroduodenoscopy (EGD) History of repair of rotator cuff LEFT History of tonsillectomy History of tooth extraction Nausea and vomiting after administration of anesthetic agent Family History Mother Family history of diabetes mellitus Heart disease Grandmother (Maternal) Family history of diabetes mellitus Aunt Family history of diabetes mellitus Father Heart disease Other No family history of adverse response to anesthesia Social History Smoking Status: Never smoker Second Hand Exposure: Yes (hx-none for 2 years from ); Do You Dip or Chew Tobacco: No; Hx Alcohol Use: Yes Alcohol type: wine Hx Substance Use: No Preferred Language: Portuguese Communication Ability: Effective Personal Injury Law Specialist Required: No Beliefs That Will Affect Care: None Current Living Situation: Spouse Other Information That Helps Us Care for You: No Feels Safe at Home: Yes Safety Concerns: Feels Safe At This Time Assistive Devices: None Physical Exam Neurological Examination: Mental Status: Awake and alert. Oriented to person, place, and time. Fluency naming repetition and comprehension appear grossly intact. Affect remains appropriate. CN testing: I: Denies changes in ability to smell II:Reports no changes in visual acuity There is severe right eyelid ptosis III/IV/: right eye depicts very little movement on EOM testing, slides laterally and inferiorly when at rest. V: Facial sensation reportedly grossly intact to light touch bilaterally VII: Facial movements appear without evidence of asymmetry VIII: Hearing appears grossly intact to loud voice bilaterally IX/X: Palate is difficult to accurately visualize. XI: Shoulder shrug appears symmetric/ grossly intact bilaterally XII: Tongue protrudes midline without evidence of biting Motor exam: Strength appears grossly intact/symmetric in all extremities Sensory: Sensation is reportedly grossly intact throughout Coordination: Finger to nose and heel to hart were intact. No apparent evidence of dysmetria or dysdiadochokinesia Reflexes: Deferred Gait: Deferred Results & Data Vital Signs (Past 12 Hours) Vital Signs Temp Pulse Pulse Resp BP Pulse Ox O2 Del Method 02/06/24 11:28 185/98 H 02/06/24 07:34 36.6 C 78 15 184/94 H 95 Room Air 02/06/24 02:11 84 152/80 H Laboratory Results Abnormal lab results 02/05/24 02/05/24 02/05/24 Range/Units 12:00 12:05 20:14 WBC 14.20 H (4.8-10.8) K/ul Hct (37.0-47.0) % Neut # (Auto) 10.22 H (1.40-6.50) K/uL Fisher # (Auto) 0.68 H (0.11-0.59) K/uL ESR 32 H (0-30) mm/hr POC Total CO2 22 L (24-31) mmol/L Anion Gap 12 H (3-11) POC BUN 34 H (7-18) mg/dl BUN 34 H (6-23) mg/dl BUN/Creatinine Ratio 36.2 H (10-20) Glucose 67 L (70-99(Fasting)) mg/dl POC Glucose 124 H (70-99) mg/dl POC Glucose (other) 66 L* (70-99) mg/dl AST (13-39) U/L Globulin (2.5-4.0) gm/dl 02/06/24 02/06/24 02/06/24 Range/Units 06:48 07:32 11:26 WBC (4.8-10.8) K/ul Hct 36.9 L (37.0-47.0) % Neut # (Auto) (1.40-6.50) K/uL Fisher # (Auto) 0.64 H (0.11-0.59) K/uL ESR (0-30) mm/hr POC Total CO2 (24-31) mmol/L Anion Gap (3-11) POC BUN (7-18) mg/dl BUN 27 H (6-23) mg/dl BUN/Creatinine Ratio 30.0 H (10-20) Glucose 146 H (70-99(Fasting)) mg/dl POC Glucose 157 H 108 H (70-99) mg/dl POC Glucose (other) (70-99) mg/dl AST 12 L (13-39) U/L Globulin 2.4 L (2.5-4.0) gm/dl Diagnostic Findings Brain MRI 02/05/24 12:09 MRI OF THE BRAIN WITHOUT AND WITH IV CONTRAST CLINICAL HISTORY: Right 3rd nerve palsy. Acute onset right eyelid drooping. COMPARISON STUDY: No previous studies for comparison. TECHNIQUE: Utilizing a 1.5 Viry magnet and dedicated coil, multiplanar, multiecho imaging of the brain was performed pre and postcontrast administration. IV administration of 7.5 mL of Gadavist contrast was uneventful. FINDINGS: There are no foci of restricted diffusion to suggest acute infarct. No acute intracranial hemorrhage, midline shift or mass effect is present. Ventricular system is unremarkable. Basal cisterns are patent. Flow-voids for the major intracranial vessels are present. There is mild atrophy. Mild white matter T2 hyperintense foci suggest small vessel disease. Calvarial signal is normal. No orbital abnormality is identified on nondedicated exam. There is no mastoid fluid. There is no significant sinus opacification. IMPRESSION: 1. No acute intracranial findings. 2. No intracranial mass or pathologic enhancement. ACT 112: Negative or not required by law. Electronically signed by: Steven Dwyer M.D. 02/05/2024 2:48 PM Head MRA 02/05/24 17:44 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 TECHNIQUE: Magnetic resonance angiography images of the head without intravenous contrast. COMPARISON: No relevant prior studies available. FINDINGS: Right internal carotid artery: No acute findings. Intracranial segment is patent with no significant stenosis. No aneurysm. Right anterior cerebral artery: Unremarkable. No occlusion or significant stenosis. No aneurysm. Right middle cerebral artery: Unremarkable. No occlusion or significant stenosis. No aneurysm. Right posterior cerebral artery: Unremarkable. No occlusion or significant stenosis. No aneurysm. Right vertebral artery: Unremarkable as visualized. Left internal carotid artery: No acute findings. Intracranial segment is patent with no significant stenosis. No aneurysm. Left anterior cerebral artery: Unremarkable. No occlusion or significant stenosis. No aneurysm. Left middle cerebral artery: Unremarkable. No occlusion or significant stenosis. No aneurysm. Left posterior cerebral artery: Unremarkable. No occlusion or significant stenosis. No aneurysm. Left vertebral artery: Unremarkable as visualized. Basilar artery: Unremarkable. No occlusion or significant stenosis. No aneurysm. IMPRESSION: Negative MRA of the brain. Electronically signed by: Katerin Rivera MD 02/06/24 01:51 AM Medications Administered Home Medications Medication Instructions Recorded Confirmed Last Taken atorvastatin 40 mg tablet 40 mg PO QAM 11/22/18 02/05/24 02/05/24 multivitamin 1 tab PO QAM 01/21/21 02/05/24 02/05/24 buspirone 5 mg tablet 5 mg PO BID 11/30/22 02/05/24 02/05/24 metformin 500 mg tablet,extended 1,000 mg PO BID 11/30/22 02/05/24 02/05/24 release 24 hr amlodipine 2.5 mg tablet 2.5 mg PO BID 02/05/24 02/05/24 02/05/24 aspirin 81 mg chewable tablet 81 mg PO QAM 02/05/24 02/05/24 02/05/24 lisinopril 40 mg tablet 40 mg PO QAM 02/05/24 02/05/24 02/05/24 metoprolol succinate 50 mg 50 mg PO QAM 02/05/24 02/05/24 02/05/24 tablet,extended release 24 hr tirzepatide 7.5 mg/0.5 mL 7.5 mg subcut WK 02/05/24 02/05/24 02/02/24 subcutaneous pen injector (Elida) Active Medications Generic Name Dose Route Start Last Admin Trade Name Freq PRN Reason Stop Dose Admin Amlodipine Besylate 2.5 mg 02/05/24 21:00 02/06/24 09:09 Amlodipine Besylate 5 Mg Tab PO 03/06/24 20:59 2.5 mg BID HAY Administration Aspirin 81 mg 02/06/24 09:00 02/06/24 09:08 Aspirin 81 Mg Ectab PO 03/07/24 08:59 81 mg QAM HAY Administration Atorvastatin Calcium 40 mg 02/06/24 09:00 02/06/24 09:08 Atorvastatin 40 Mg Tab PO 03/07/24 08:59 40 mg QAM HAY Administration Buspirone HCl 5 mg 02/05/24 21:00 02/06/24 09:08 Buspirone 5 Mg Tab PO 03/06/24 20:59 5 mg BID HAY Administration Enoxaparin Sodium 40 mg 02/05/24 21:00 02/05/24 21:14 Enoxaparin Inj 40 Mg/0.4 Ml Syr SQ 03/06/24 20:59 40 mg Q24H HAY Administration Guaifenesin/Dextromethorphan 10 ml 02/05/24 20:21 02/06/24 07:46 Guaifenesin/Dextrom Syrup 200mg/20mg 10ml Udc PO 03/06/24 20:20 10 ml Q6H PRN Administration Cough Hydralazine HCl 5 mg 02/05/24 20:31 02/06/24 07:47 Hydralazine Hcl 20 Mg/Ml Vial IV 03/06/24 20:44 5 mg Q6H PRN Administration SBP > 160 Insulin Aspart 0 units 02/05/24 22:10 02/06/24 09:10 Insulin Aspart Per Unit Charge SC 03/06/24 22:09 4 units ACHS HAY Administration Lisinopril 40 mg 02/06/24 09:00 02/06/24 09:08 Lisinopril 40 Mg Tab PO 03/07/24 08:59 40 mg QAM HAY Administration Metoprolol Succinate 50 mg 02/06/24 09:00 02/06/24 09:08 Metoprolol Succ 50mg Ext Rel Tab PO 03/07/24 08:59 50 mg QAM HAY Administration Multivitamins 1 tab 02/06/24 09:00 02/06/24 09:08 Multivitamin Tab PO 03/07/24 08:59 1 tab QAM HAY Administration
--- NOTE | 2024-02-06 13:00 | Hospitalist Progress Note ---
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 Patient had recent COVID diagnosed on 01/19/2024, was negative for COVID 01/31/2024. Patient denies any recent febrile illness, has been having cough and sinus congestion since COVID. 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 She is being managed for the following: Right eye ptosis Suspected 3rd nerve palsy: Head/Brain MRI and MRA negative for any acute findings, recent viral illness likely the cause c/w eye patch. Discussed with neurology, plan to send CTA head and neck and myasthenia gravis panel and Guillain Richmond Syndrome antibodies. Recommends no driving. Follow-up with neurology as an outpatient, follow-up with ophthalmology as an outpatient. Continue frequent neurological assessment. Consider outpatient sleep study. Sent CTA Head and neck, MG panel and GBS antibodies, follow. Hx DM2: Last A1c 5.9, check sugars twice daily, hold metformin Patient was hypoglycemic on arrival, sliding scale insulin while in here. Hx HTN/HLD: Continue metoprolol/lisinopril/statin/aspirin/amlodipine - remains elevated, add hydralazine tid, c/w prn hydralazine Hx depression: Continue buspirone Full code DVT prophylaxis: Lovenox Admission and Anticipated Discharge Date Admission Date: February 05, 2024 Subjective Patient was seen and examined at bedside. Patient was lying in bed, on room air, NAD, resting comfortably. Patient denies any numbness or tingling or weakness of any limbs, denies any other neurological symptoms. Patient has right eye patch on. Patient reports eating okay moving bowels okay, denies other symptoms. Physical Exam Physical Exam: GENERAL: Alert and oriented x3. NAD, on RA. HEENT: No pallor, no icterus. Pupils equal, round and reactive to light. Oral mucosa moist. Rt eye ptosis noted, no erythema or abn skin noted. Rt eye patch was on prior to exam. NECK: No JVD, no neck masses. HEART: S1 and S2 heard. Regular rate and rhythm. No murmur, no gallop. RESPIRATORY SYSTEM: Normal AP diameter. No accessory muscle use. No wheezing, no crackles. ABDOMEN: Soft, bowel sounds present, nontender, no distention. CENTRAL NERVOUS SYSTEM: No facial droop. Speech is clear. Obeys simple commands. Moves extremities. EXTREMITIES: No edema, no erythema seen. Results & Data Results & Data Vital Signs (Past 12 Hours) Vital Signs Temp Pulse Pulse Resp BP Pulse Ox O2 Del Method 02/06/24 11:28 185/98 H 02/06/24 07:34 36.6 C 78 15 184/94 H 95 Room Air 02/06/24 02:11 84 152/80 H
[2024-02-06] MEDS: OPTIRAY 320 125ml IV ONE (13:37)
--- NOTE | 2024-02-06 13:47 | CT Scan Report ---
CT ANGIOGRAPHY OF THE NECK WITH CONTRAST CLINICAL HISTORY: 3rd nerve palsy COMPARISON STUDY: No previous studies for comparison. Technique: CT angiography of the carotid and vertebral arteries was obtained using Optiray and 3D rec onstruction on an independent workstation. NASCET criteria was utilized. Automated exposure control was utilized for the study. A dose lowering technique was utilized adhering to the principles of ALA RA. CT DOSE: 373.82 mGy.cm Findings: Visualized portions of the lung apices are unremarkable. There is no cervical lymphadenopat hy. No cervical spine fractures are present. The bilateral common carotid, cervical internal carotid and vertebral arteries are patent. There is no stenosis, aneurysm or dissection within the major vess els of the neck. There is mild plaque within the proximal left internal carotid artery without stenos is. CTA of the head will be reported separately. IMPRESSION: No stenosis, dissection or aneurysm within the bilateral common carotid, cervical interna l carotid or vertebral arteries. ACT 112: Negative or not required by law. Electronically signed by: Steven Dweyr M.D. 02/06/2024 1:46 PM
--- NOTE | 2024-02-06 14:04 | CT Scan Report ---
CT angio head w con CLINICAL HISTORY: 73 years-old Female with 3rd n palsy. Patient presents with acute 3rd nerve pals y COMPARISON STUDY: CTA neck same day, MRA head February 05, 2024 TECHNIQUE: Following the IV administration of 116 cc of Optiray, CT angiogram of the brain was perfor med from the skull base to the vertex. Images are reviewed in the axial, sagittal, and coronal planes . 3-D MIPS images are created and assessed. IV contrast was administered without complication. All me asurements were obtained according to NASCET criteria. A dose lowering technique was utilized adherin g to the principles of ALARA. FINDINGS: CT ANGIOGRAM OF THE BRAIN: The imaged bilateral internal carotid arteries are patent. The bilateral anterior and middle cerebral arteries are also patent. The vertebrobasilar system and posterior cerebral arteries are widely sun nt. There is no aneurysm, high-grade stenosis, or proximal branch occlusion identified. Dural sinuses appear patent. Prior bilateral lens repair. The bilateral orbits and extraocular musculature appears unremarkable on this exam. IMPRESSION: Unremarkable CTA of the head. ACT 112: Negative or not required by law. The above report was generated using voice recognition software. It may contain grammatical, syntax o r spelling errors. Electronically signed by: Branden Brandon M.D. 02/06/2024 2:02 PM
[2024-02-06] MEDS: hydrALAZINE HCL 25 MG TAB PO SCH (14:27)
[2024-02-06] MEDS: SODIUM CHLORIDE 0.65% NA SOLN 45 ML (OCEAN) PRN (14:53)
--- OUTSIDE RECORDS SUMMARY | 2024-02-07 02:47 | External Medical Summary | Summary of Care ---
Author Name Unknown Organization [facility] Address [address] [place] [address] Phone [phone] Care Team Providers Care Diver Helper Name Role Phone Arti Gutierrez MD Primary Care Provider [phone] Reason for Visit * Reason Comments Acute Patient developed or iginal symptomst aht started on 01/18/24 and tested positive at home on 01/18. Tested negative for COVID on 01/30. Over past week, has still had a dry cough, runny nose, sinus infection and clear mucous. Is now having throbbing pain across her right eyebrow and down right side of her nose intermittently. Has been applying warm compresses to her right eye area. Right eye has been completely closed for 5 days - when forced open is not able to focus properly. Encounter Details Date Type Department Care Team (Late st Contact Info) Description 02/05/2024 8:40 AM EST Office Visit General Internal Medicine [facility] [place] [address] [facility] [place] [id number] Latosha Garces PA-C [address] [facility] [place] [id number] Double vision*; Impaired eye movement; Unequal reaction of pupils; COVID-19 Allergies Active Allergy Reactions Criticality Noted Date Comments Pioglitazone Hydrochloride 9 Gi upset Semaglutide Diarrhea,Nausea/vomiting 11/04/2022 documented as of this encounter (statuses as of 02/05/2024) Medications ASPIRIN 81 MG PO CHEWIndications:D M [...] as directed. 1 Each 09/28/19 23 Active amLODIPine Besylate 2.5 MG Oral Tablet [...] mouth in the morning. 01/05/20 24 Active Mounjaro 10 MG/0.5ML Subcutaneous Solution Auto-injector (Tirzepatide) Inject 10 mg under the skin once a week. 2 mL 11 4 12:48 PM EDT 01/05/20 24 025 Active Additional Information Patient not taking.Reported on 02/05/2024 Mounjaro 7.5 MG/0.5ML Subcutaneous Solution Auto-injector 12/22/19 Active Biotin 5000 MCG Oral Capsule Take 1,000 Capsules by mouth once. 024 Discontin ued(Medic ation List Clean Up) documented as of this encounter (statuses as of 02/05/2024) Active Problems Problem Noted Date Diagnosed Date [...] as of this encounter (statuses as of 02/05/2024) Resolved Problems Problem Noted Date Diagnosed Date [...] as of this encounter (statuses as of 02/05/2024) Immunizations Name Administration Dates Next Due COVID-19 [...] money to get more. Never true 2022 Comments No Sex and Gender Information Value Date Recorded Sex Assigned at Female 08/09/2018 11:51 AM EDT Legal Sex Female 5:57 AM EST Gender Identity Female 08/09/2018 11:51 AM EDT Sexual Orientation Straight 08/09/2018 11 :51 AM EDT documented as of this encounter Last Filed Vital Signs Vital Sign Reading Time Taken Comments Blood Pressure 140/76 02/05/2024 8:52 AM EST Pulse 85 02/05/2024 8:52 AM EST Temperature 36.2 C (97.1 F) 02/05/2024 8:52 AM ES T Respiratory Rate - - Oxygen Saturation 98% 02/05/2024 8:52 AM EST Inhaled Oxygen Concentration - - Weight 75.5 kg (166 lb 6.4 oz) 02/05/2024 8:52 A M EST Height - - Body Mass Index 33.61 07/04/2023 11:21 AM EDT documented in this encounter Progress Notes * Latosha Garces PA-C - 02/05/2024 8:58 AM EST Images from the original note were not included. History of Present Illness Yessenia Justice is a 73 year old female that presents for Acute (Patient developed original symptomst aht started on 01/18/24 and tested positive at home on 01/18. Tested negative for COVID on 01/30. Over past week, has still had a dry cough, runny nose, sinus infection and clear mucous. Is now having throbbing pain across her right eyebrow and down right side of her nose intermittently. Has been applying warm compresses to her right eye area. Right eye has been completely closed for 5 days - when forced open is not able to focus properly. ) Pt here today for an acute visit with a c/o being sick. Tested positive for COVID in Mid January--tested negative on 01/30. Continues to have a lot of sinus pressure, congestion, PND. Also with 5 day history of R eye being closed. Unable to open the eye voluntarily--has to lift the lid to open. When she does open the lid vision is blurry and occasionally double vision. No pain or drainage with eye. Review of Systems: See HPI for pertinent positives. All other review of systems is negative. Physical Exam Vitals: 02/05/24 0852 Temp: 97.1 F (36.2 C) Pulse: 85 SpO2: 98% BP: 140/76 Physical Exam Constitutional: General: She is not in acute distress. Appearance: She is not diaphoretic. HENT: Right Ear: Tympanic membrane, ear canal and external ear normal. Left Ear: Tympanic membrane, ear canal and external ear normal. Nose: Right Sinus: Maxillary sinus tenderness present. No frontal sinus tenderness. Left Sinus: Maxillary sinus tenderness present. No frontal sinus tenderness. Mouth/Throat: Mouth: Mucous membranes are moist. Pharynx: Oropharynx is clear. Eyes: Extraocular Movements: Right eye: Abnormal extraocular motion present. Left eye: Normal extraocular motion. Pupils: Pupils are unequal. Right eye: Pupil is not reactive. Comments: R eyelid completely closed. Pt unable to lift at all. Must be lifted manually. Cardiovascular: Rate and Rhythm: Normal rate and regular rhythm. Pulmonary: Effort: Pulmonary effort is normal. Breath sounds: Normal breath sounds. Abdominal: General: Bowel sounds are normal. Palpations: Abdomen is soft. Musculoskeletal: Cervical back: Normal range of motion and neck supple. Skin: General: Skin is warm and dry. Neurological: General: No focal deficit present. Mental Status: She is alert. Mental status is at baseline. I have reviewed the following results: Assessment and Plan Double vision Attempted to call ophthalmology--unable to get through to a provider. Given the amount of time pt has had these eye symptoms with no improvement, advised pt she needs to go to ER for acute testing and eval. Ophth can be consulted through the ER to see her as well. Pt is agreeable with this. Called [facility] ER and gave report. Impaired eye movement Unequal reaction of pupils COVID-19 Wrap-Up Follow Up: Return if symptoms worsen or fail to improve. Time: I spent a total of 40-54 minutes (exact time 44 mins) on the date of service in preparation, delivery, and documentation of the care provided to Yessenia Justice excluding any time spent in the performance of separately billed services. documented in this encounter Nursing Notes * Rabia Mendiola MED ASSIST - 02/05/2024 8:56 AM EST Chief Complaint Patient presents with Acute Patient developed original symptomst aht started on 01/18/24 and tested positive at home on 01/18. Tested negative for COVID on 01/30. Over past week, has still had a dry cough, runny nose, sinus infection and clear mucous. Is now having throbbing pain across her right eyebrow and down right side of her nose intermittently. Has been applying warm compresses to her right eye area. Right eye has been completely closed for 5 days - when forced open is not able to focus properly. documented in this encounter Plan of Treatment Upcoming Encounters Date Type Department Care Team (Late st Contact Info) Description 02/20/2024 9:15 AM EST Imaging Radiology [facility] [address] [facility] [address] [facility] [place] [address] 03/20/2024 1:00 PM EST Cardiac Studies Cardiac Studies, [facility] [address] [facility] [place] [address] 04/02/2024 8:30 AM EST Office Visit Cardiology, [facility] [address] [facility] [place] [id number] Tye Garcia MD [address] [facility] [place] [address] 04/08/2024 10:30 AM EST Office Visit Pharmacy, [facility] [address] [facility] [place] [address] Pharmacist1, [facility] [address] [facility] [place] [address] 07/12/2024 10:20 AM EDT Office Visit General Internal Medicine [facility] [address] [facility] [place] [address] Arti Gutierrez MD [address] [facility] [place] [id number] Health Maintenance Due Date Last Done Comments Cologuard 1997 Sigmoidoscopy 1997 Adult Wellness Visit 2018 Depression Screening 09/24/2023 2022 Mammogram 02/17/2024 02/16/2023, 02/03, 01/11/2021, Additional history exists Fecal Occult Blood Test 04/08/2024 04/08/2023 HbA1c 07/03/2024 01/03/2024, 09/05, 07/01/2023, Additional history exists Diabetic Eye Exam 11/08/2024 11/09/2023, , 08/29/2018, Additional history exists Albumin/Creatinine Ratio 01/02/202501/02/ 024, 07/01/2023, 03/31/2023, Additional history exists B-12 [...] as of this encounter Visit Diagnoses Diagnosis Double vision- Primary Diplopia Impaired eye movement Unspecified disorder of eye movements Unequal reaction of pupils COVID-19 documented in this encounter Advance Directives Documents on File Type Date Recorded 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
[2024-02-07 06:28] LABS: Hematocrit (blood only) 37.6 % (37.0-47.0); Mean Corpuscular Hemoglobin 30.3 pg (25.0-34.0); Mean Corpuscular Hgb Conc 34.6 g/dL (32.0-36.0); Mean Corpuscular Volume 87.6 fL (80.0-100.0); Mean Platelet Volume 9.4 fL (9.4-12.4); Platelet Count 264 K/uL (130-400); RDW Coefficient of Variation 13.5 % (11.5-14.5); RDW Standard Deviation 42.2 fL (36.4-46.3); Red Blood Count 4.29 M/uL (4.20-5.40); White Blood Count 12.65 K/ul (4.8-10.8)
[2024-02-07 06:59] LABS: BUN Creatinine Ratio 28.4 (10-20); Calcium 9.3 mg/dl (8.6-10.3); Chol HDL Ratio 3.9 (0-5); Creatinine Clr Calc Pharmacy 42.8 ml/min; Magnesium 1.7 mg/dl (1.7-2.4); Phosphorus 4.8 mg/dl (2.5-4.9)
[2024-02-07 07:16] LABS: Estimated Average Glucose 128 mg/dl; Hemoglobin A1C 6.1 % (4.5-5.6)
--- NOTE | 2024-02-07 12:30 | Discharge Summary ---
Date of Service February 07, 2024 Admission HPI Per Admitting Provider The patient is a 73-year-old female with a past medical history of HTN, HLD, depression, diabetes who presents to the ED on 02/05/2024 with complaints of right eye proptosis for the past week. Patient reports recently being diagnosed with COVID and having a lot of mucus production and respiratory symptoms. She denies shortness of breath or chest pain. She reports about a week ago developing right eye ptosis about a week ago and thought she had an eye infection. She reports diplopia when opening both of her eyes but when her right eye is closed reports that this resolved. Denies anything like this in the past. Denies any numbness/tingling. Denies any weakness. On exam, patient is able to identify how many fingers are being held up and her peripheral vision is intact but the patient is unable to follow my fingers with her right eye. Denies any blurry vision. She is neurologically grossly intact. No other neurodeficits noted on exam On arrival to the ER, labs are remarkable for WBC 14, anion gap 12, BUN 34, glucose 66, patient reports she only ate breakfast this morning Brain MRI was negative for anything acute The patient will be admitted for further workup of suspected 3rd nerve palsy Admission Exam Per Admitting Provider Constitutional: WD/WN, vitals as above Eyes: PERRL, conjunctivae normal, anicteric sclerae (Right eye ptosis, 3rd nerve palsy) ENMT: external ear and nose normal, oropharynx normal Neck: trachea midline, no thyromegaly Respiratory: normal respiratory effort, lungs clear to auscultation Cardiovascular: RRR, no murmur, no edema Gastrointestinal (Abdomen): normal bowel sounds, soft, nontender, no hepatosplenomegaly Musculoskeletal: no cyanosis or clubbing, extremities motor strength 5/5 Skin: no rashes, warm and dry Neurologic: PERRL, EOMI, accommodation nl, no face palsy, no dysarthria Psychiatric: A+Ox3, euthymic affect Lymphatic: no cervical or axillary lymphadenopathy Principal Diagnosis right eye ptosis 3rd nerve palsy Discharge Exam GENERAL: Alert and oriented x3. NAD, on RA. HEENT: No pallor, no icterus. Pupils equal, round and reactive to light. Oral mucosa moist. Rt eye ptosis noted, no erythema or abn skin noted. Rt eye patch was on prior to exam. NECK: No JVD, no neck masses. HEART: S1 and S2 heard. Regular rate and rhythm. No murmur, no gallop. RESPIRATORY SYSTEM: Normal AP diameter. No accessory muscle use. No wheezing, no crackles. ABDOMEN: Soft, bowel sounds present, nontender, no distention. CENTRAL NERVOUS SYSTEM: No facial droop. Speech is clear. Obeys simple commands. Moves extremities. EXTREMITIES: No edema, no erythema seen. Discharge Data Allergies Allergy/AdvReac Type Severity Reaction Status Date / Time cat dander Allergy Unknown Hives Verified 02/05/24 12:46 pioglitazone [From Actos] Allergy Unknown Unknown Unverified 02/05/24 12:46 pollen extracts Allergy Unknown ITCHY Verified 02/05/24 12:46 EYES, SNEEZING, CONGESTION Consultations 02/05/24 16:12 ED Decision to Admit Stat 02/05/24 20:14 Consult Neurology Routine Ordered Studies 02/05/24 12:09 MRI Brain [MR brain wo/w con] Stat 02/05/24 17:44 MR angio head wo con Routine 02/06/24 12:04 CTA head w con [CT angio head w con] Urgent CTA neck with con [CT angio neck with con] Urgent Hospital Course (1) Third nerve palsy: (2) Diabetes mellitus, type 2: (3) Anxiety: (4) Hypertension: (5) Hyperlipidemia: Plan 73-year-old lady with PMH of HTN, HLD, depression, diabetes presented to the ED 02/04 with 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 Patient had recent COVID diagnosed on 01/19/2024, was negative for COVID 01/31/2024. Patient denies any recent febrile illness, has been having cough and sinus congestion since COVID. 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 She was managed for the following: Right eye ptosis Suspected 3rd nerve palsy: Head/Brain MRI and MRA negative for any acute findings, recent viral illness likely the cause c/w eye patch. Neurology evaluated, CTA head and neck with no new finding. Other imagings WNL. Myasthenia gravis panel and GBS antibodies pending.Patient advised to follow-up on final results during of follow-up with PCP office and neurology office in the next week upon discharge. Discussed with neurology, no driving, okay to discharge with close follow-up with neurology and ophthalmology. Patient has been advised of no driving, DMV form has been filled and handed out to rehabilitation case coordinator for faxing. Patient has been advised to call her PCP office to set up an appointment within a week time and and also to set up appointment with neurology and ophthalmology in a week time of discharge. Patient advised for sleep study as an outpatient. No new neurological symptoms. Patient hemodynamically stable. Would like to go home. Hx DM2: Last A1c 5.9, check sugars twice daily, hold metformin Patient was hypoglycemic on arrival, sliding scale insulin while in here. Hx HTN/HLD: Continue metoprolol/lisinopril/statin/aspirin/amlodipine - remains elevated, add hydralazine tid, c/w prn hydralazine Patient does not want to be added on any additional hypertensive medication, reports her blood pressure is good at home in the 120s over 70s, states that she will measure her blood pressure twice a day and maintain a log to take to primary care physician and will decide further management from there. Hx depression: Continue buspirone Full code DVT prophylaxis: Lovenox Patient is being discharged home with following instruction at the point of discharge: Follow-up with your primary care physician within a week time and likely you will need labs CBC/CMP/magnesium/phosphorus. For your right eye ptosis, you were evaluated by neurology, you underwent various imaging tests which were negative. Myasthenia gravis panel and GBS ant ibodies have been sent out, the results will be available in next 3-5 business days, follow-up with your PCP office and neurology office at the final results of these test. Follow-up with neurology in 1 to 2 weeks time upon discharge. And follow-up with ophthalmology in 1 to 2 weeks time upon discharge. Coordinate with your PCP office to set up the referral. As discussed at the bedside, you are advised not to continue driving until you have been cleared by neurology as an outpatient. Your DMV has been notified. You might benefit from outpatient sleep study, coordinate with your PCP office t o set up the test. Your blood pressure has been higher while in hospital, as discussed at the bedside, measure blood pressure 2-3 times a day/maintain a log to take to your primary care physician for ongoing management/evaluation. Take your medications as prescribed. Please make sure that you are able to get your medications today by calling your pharmacy before you leave the hospital so that your treatment continuity is not broken. Home Health Attestation I certify that this patient is under my care and that I, or a physicians dietitian assistant working with me, had a face to-face encounter that meets the home health [id number] encounter requirements with this patient. The encounter with the patient was in whole, or in part, for the following medical condition, which is the primary reason for home health care (list medical condition): I certify that, based on my findings, the following services are medically necessary home health services: My clinical findings support the need for the above services because: Further, I certify that my clinical findings support that this patient is homebound (i.e. absences from home require considerable and taxing effort and are for medical reasons or episcopalian services or infrequently or of short duration when for other reasons) because: Certification for Home Health Services: Based on the above findings, I certify that this patient is confined to the home and needs intermittent long-term care, physical therapy and/or speech therapy or continues to need occupational therapy. The patient is under my care, and I have initiated the establishment of the plan of care. This patient will be followed by a physician who will periodically review the plan of care. Total Time Total Time Spent Total Time Spent (In Minutes): 35 Discharge Plan Discharge Items Patient Disposition: Home - Self-Care Reason For Visit: R EYE PTOSIS, DIPLOPLIA Discharge Diagnosis: right eye ptosis 3rd nerve palsy Activity: Resume your previous activity Non-emergency contact: Primary Care Provider Call non-emergency contact if: you have any medication questions, your symptoms worsen and your temperature is above 101 Follow-up/Referrals: Arti Gutierrez MD [Primary Care Provider] - Diet: Carb Consistent or DM2 Addtl Attending Provider Instructions: Follow-up with your primary care physician within a week time and likely you will need labs CBC/CMP/magnesium/phosphorus. For your right eye ptosis, you were evaluated by neurology, you underwent various imaging tests which were negative. Myasthenia gravis panel and GBS antibodies have been sent out, the results will be available in next 3-5 business days, follow-up with your PCP office and neurology office at the final results of these test. Follow-up with neurology in 1 to 2 weeks time upon discharge. And follow-up with ophthalmology in 1 to 2 weeks time upon discharge. Coordinate with your PCP office to set up the referral. As discussed at the bedside, you are advised not to continue driving until you have been cleared by neurology as an outpatient. Your DMV has been notified. You might benefit from outpatient sleep study, coordinate with your PCP office to set up the test. Your blood pressure has been higher while in hospital, as discussed at the bedside, measure blood pressure 2-3 times a day/maintain a log to take to your primary care physician for ongoing management/evaluation. Take your medications as prescribed. Please make sure that you are able to get your medications today by calling your pharmacy before you leave the hospital so that your treatment continuity is not broken. Pending Studies at Discharge: Yes Stand-Alone Forms: My [facility] [employer], Smoking Cessation Medications and DC Order Prescriptions: New codeine-guaifenesin 7.5-225 mg/5 mL liquid 5 ml PO Q6H PRN (Reason: cough) 7 Days Qty: 473 0RF Continued atorvastatin 40 mg Tablet 40 mg PO QAM buspirone 5 mg Tablet 5 mg PO BID metformin 500 mg Tablet Extended Release 24 Hr 1,000 mg PO BID multivitamin Tablet 1 tab PO QAM metoprolol succinate 50 mg tablet extended release 24 hr 50 mg PO QAM amlodipine 2.5 mg tablet 2.5 mg PO BID aspirin 81 mg Tablet,Chewable 81 mg PO QAM lisinopril 40 mg tablet 40 mg PO QAM Mounjaro 7.5 mg/0.5 mL pen injector 7.5 mg subcut WK Rx Instructions: Monday Discharge Orders: Discharge Order (Routine); Ordered 02/07/24 Ordered By: Nasra Cabrera/Other Patient Handouts: Managing Type 2 Diabetes Admission Data Admit Date/Time: 02/05/24 17:17 Attending Provider: Nsara Jj Admit Provider: Lane Martinez Primary Care Provider: Arti Gutierrez Other Providers: Lane Martinez; Gonzalo Mattson
[2024-02-07 15:26] VITALS: BP 167/98; PULSE 73; RESP 16; TEMP 97.2; O2SAT 98
== END 2024-02-07 16:48 | disposition home or self-care (01) | DRG 123 ==
LOC: ED 10:18 → SUATTDRO 17:17 → EDINP 17:17 → 3E 20:14